=== PATIENT | female | born 1935 | race Caucasian/White ===

== ENCOUNTER → 2016-06-05 | Outpatient (CLI) | payer MEDICARE, OTHER ==
[~2016-06-05] MED LIST: /PANT40TA; /PANT40TA OR; AFRI0.65; AMO500 PO; ASPI325T; ASPI81TA83 OR; ATARAX25 PO; BABY81CH; CALCCHW12; CIPR-250 PO; CLAR500T; COZA50TA18 OR; DEPA250T32 PO; DIOV160T5; DIOV160T5 OR; DONETAB5 PO; FERR325T OR; FLUO20CA8 PO; GLUC500T; GLUC500T PO; GLUCCOSEAC TOPICAL; GLUCOP1000 PO; GLUCOSE TEST; HUMULIN; HUMULINN SC; INSULANT SC; INSULINSYR SUBQ; ISOS20TA3; ISOS20TA3 OR; LANCMIS; LEVOXYL25 MCG; LEVOXYL25 MCG OR; LIPI10TA OR; LOPR50TA OR; LOPR50TA PO; LOSA50TA20 PO; MAGN500T2; MAGN500T2 OR; METO25TA2; NIZORALSHA TOPICAL; PLAV75TA2; PLAV75TA2 OR; PREMAR1.25 PO; PROZ20CA OR; SIMV20TA2 OR; SYNTHROID PO; TESS100C; TYLE167L PO; VICO5TAB; VICO5TAB16 PO; VITA500T3 PO; VITACAP31 PO; ZOCO20TA PO; ZOCOR10 PO; ZOLOFT50 PO; ZONI25CA2 PO; coumadin
[2016-06-05 13:55] LABS: CALCIUM LEVEL 9.6 MG/DL (8.8-10.2); CREATININE FOR GFR 1.45 MG/DL (0.55-1.02); GLOMERULAR FILTRATION RATE 36.9 (>32); POTASSIUM SERUM 4.4 MEQ/L (3.5-5.1)
== END ==
LOC: M SMT 08:47
PROVIDERS: ATTEND Physician Assistant
DX: E11.9 Type 2 diabetes mellitus without complications (principal)

== ENCOUNTER → 2016-08-29 | Outpatient (CLI) | payer MEDICARE ==
[2016-08-29 14:07] LABS: BASO # 0.1 K/mm3 (0.0-0.2); BASO % 0.9 % (0.0-1.0); EOS # 0.2 K/mm3 (0.0-0.50); EOS % 3.9 % (0.0-3.0); LARGE UNSTAINED CELL # 0.1 K/mm3 (0.0-0.4); LARGE UNSTAINED CELL % 1.2 % (0.0-4.0); LYMPH # 1.8 K/mm3 (1.5-4.5); LYMPH % 28.6 % (24.0-44.0); MEAN CORPUSCULAR HEMOGLOBIN 30.5 pg (27.0-33.0); MEAN CORPUSCULAR HGB CONC 32.9 g/dl (32.0-36.5); MEAN CORPUSCULAR VOLUME 92.7 fl (80.0-96.0); MONO # 0.3 K/mm3 (0.0-0.8); MONO % 5.5 % (0.0-5.0); NEUTROPHILS # 3.6 K/mm3 (1.8-7.7); NEUTROPHILS % 59.8 % (36.0-66.0); PLATELET COUNT, AUTOMATED 174 k/mm3 (150-450); RED CELL DISTRIBUTION WIDTH 13.3 % (11.5-14.5)
[2016-08-29 14:26] LABS: ALBUMIN 3.5 GM/DL (3.2-5.2); ALBUMIN/GLOBULIN RATIO 1.25 (1.00-1.93); BILIRUBIN,TOTAL 0.6 MG/DL (0.2-1.0); CALCIUM LEVEL 8.9 MG/DL (8.8-10.2); CREATININE FOR GFR 1.71 MG/DL (0.55-1.02); FREE T4 0.9 NG/DL (0.76-1.46); GLOMERULAR FILTRATION RATE 30.5 (>32); POTASSIUM SERUM 4.1 MEQ/L (3.5-5.1); TOTAL PROTEIN 6.3 GM/DL (6.4-8.2)
== END ==
LOC: M SMT 09:31
PROVIDERS: ATTEND Physician Assistant
DX: E11.9 Type 2 diabetes mellitus without complications (principal); N18.3 Chronic kidney disease, stage 3 (moderate)

== ENCOUNTER → 2016-09-27 | Outpatient (CLI) | payer MEDICARE ==
[~2016-09-27] MED LIST changes: +ASPI1TAB PO; +EXEL4.6D TD; +INSULADS INJ; +LEVO137T14 PO; +NAME5TAB13 PO; +PANT40TA2 PO; +VITA250L PO
--- NOTE | 2016-09-27 14:24 | REPMRS ---
Patient History The patient states she has not had a clinical breast exam in over a year. No known family history of cancer. Digital Woman Screen Mammo: September 27, 2016 - Exam #: [id number] Bilateral CC and MLO view(s) were taken. Technologist: Janene Faye, Technologist Prior study comparison: December 02, 2012, digital bilateral screening mammo, performed at [facility]. January 26, 2011, digital bilateral screening mammo, performed at [facility]. FINDINGS: There are scattered fibroglandular densities. There has been no change in the appearance of the mammogram from the prior studies. There is a mild amount of residual fibroglandular tissue which is fairly symmetric. There is no interval development of dominant mass, architectural distortion, or clustered microcalcification suggestive of malignancy. ASSESSMENT: BI-RADS/ACR category 1 mammogram. Negative. Recommendation Routine screening mammogram in 1 year (for women over age 40). This mammogram was interpreted with the aid of an FDA-approved computer-aided dectection system. Electronically Signed By: Gildardo Barron MD 09/27/16 [id number]
== END ==
LOC: M WHC 12:56
PROVIDERS: ATTEND Physician Assistant
DX: Z12.31 Encounter for screening mammogram for malignant neoplasm of breast (principal)

== ENCOUNTER → 2016-12-06 | Outpatient (CLI) | payer MEDICARE ==
[2016-12-06 13:40] LABS: ALBUMIN 3.4 GM/DL (3.2-5.2); ALBUMIN/GLOBULIN RATIO 1.13 (1.00-1.93); BILIRUBIN,TOTAL 0.4 MG/DL (0.2-1.0); CREATININE FOR GFR 1.45 MG/DL (0.55-1.02); FREE T4 1.16 NG/DL (0.76-1.46); GLOMERULAR FILTRATION RATE 36.8 (>32); POTASSIUM SERUM 4.7 MEQ/L (3.5-5.1); TOTAL PROTEIN 6.4 GM/DL (6.4-8.2)
== END ==
LOC: M SMT 08:54
PROVIDERS: ATTEND Physician Assistant
DX: E11.9 Type 2 diabetes mellitus without complications (principal); E03.9 Hypothyroidism, unspecified

== ENCOUNTER → 2017-02-12 | Outpatient (CLI) | payer MEDICARE ==
--- NOTE | 2017-02-12 16:30 | REP ---
Chest x-ray: Two views: History: Pneumonia. Comparison study: 03/21/2017. Findings: The lungs are symmetrically aerated and clear. Pleural angles are sharp. Heart size is normal. There are degenerative changes in the thoracic spine. Periarticular calcifications are noted about the right shoulder. Pulmonary vasculature is not increased. Impression: No infiltrate seen. No active disease. Signed by Jeremiah Robledo MD 02/12/2017 04:36 P
[2017-02-12 19:09] LABS: MEAN CORPUSCULAR HEMOGLOBIN 30.6 pg (27.0-33.0); MEAN CORPUSCULAR HGB CONC 33.5 g/dl (32.0-36.5); MEAN CORPUSCULAR VOLUME 91.3 fl (80.0-96.0); RED CELL DISTRIBUTION WIDTH 13.6 % (11.5-14.5); WHITE BLOOD COUNT 9.3 K/mm3 (4.0-10.0)
[2017-02-12 19:59] LABS: ALBUMIN 3.6 GM/DL (3.2-5.2); ALBUMIN/GLOBULIN RATIO 1.24 (1.00-1.93); BILIRUBIN,TOTAL 2.2 MG/DL (0.2-1.0); CALCIUM LEVEL 9.7 MG/DL (8.8-10.2); CREATININE FOR GFR 1.62 MG/DL (0.55-1.02); FREE T4 1.32 NG/DL (0.76-1.46); GLOMERULAR FILTRATION RATE 32.4 (>32); POTASSIUM SERUM 4.6 MEQ/L (3.5-5.1); TOTAL PROTEIN 6.5 GM/DL (6.4-8.2)
[2017-02-12 20:39] LABS: EOSINOPHILS 2 % (0-5)
== END ==
LOC: M SMT 15:18
PROVIDERS: ATTEND Physician Assistant
DX: J15.8 Pneumonia due to other specified bacteria (principal); E03.9 Hypothyroidism, unspecified

== ENCOUNTER → 2017-02-20 | Outpatient (CLI) | payer MEDICARE ==
--- NOTE | 2017-02-20 09:21 | REP ---
CT Head without contrast HISTORY: Dizziness COMPARISON: 01/25/2014 An area of decreased attenuation is present in the right basal ganglia. This represents an old lacunar infarction. Areas of decreased attenuation are present in the periventricular white matter. This represents small-vessel ischemic disease. There is no intraparenchymal hemorrhage, acute infarct, mass or midline shift. The ventricular system and cortical sulci as well as subarachnoid space in the posterior fossa are dilated consistent with mild volume loss. There is no extra cerebral collection. There is no fracture. The visualized sinuses are clear. IMPRESSION: 1. Old right basal ganglia lacunar infarction. 2. Small vessel ischemic disease. 3. Mild volume loss. Signed by Sharad Lopez MD 02/20/2017 09:11 A
--- NOTE | 2017-02-20 09:22 | REP ---
Abdominal right upper quadrant ultrasound for elevated liver function tests: There are no comparisons. The the patient has a cholecystectomy. The hepatic biliary ducts are dilated. Common biliary duct is dilated measuring up to 15 mm. This may be secondary to post cholecystectomy state. The hepatic parenchyma is mildly echogenic compatible with hepato steatosis but otherwise homogeneous and unremarkable. The pancreas is obscured by bowel gas. There is no right renal calculus, mass, cyst or hydronephrosis. The right kidney is normal size measuring 10.9 cm craniocaudad length. There is no abdominal right upper quadrant free fluid. Impression: Cholecystectomy. Dilated intrahepatic and extrahepatic biliary ducts, possibly secondary to post cholecystectomy state. Pancreas is obscured by bowel gas. Hepato steatosis. Signed by Gildardo French MD 02/20/2017 09:12 A
== END ==
LOC: M RAD 08:18
PROVIDERS: ATTEND Physician Assistant
DX: K76.0 Fatty (change of) liver, not elsewhere classified (principal); I67.89 Other cerebrovascular disease

== ENCOUNTER → 2017-03-08 | Outpatient (CLI) | payer MEDICARE ==
[2017-03-08 14:09] LABS: BASO % 0.9 % (0.0-1.0); EOS # 0.3 10^3/uL (0.0-0.50); EOS % 5.8 % (0.0-3.0); IMMATURE GRANULOCYTE % 0.2 % (0-0); LYMPH # 1.7 10^3/uL (1.5-4.5); LYMPH % 36.1 % (24.0-44.0); MEAN CORPUSCULAR HEMOGLOBIN 30.2 pg (27.0-33.0); MEAN CORPUSCULAR HGB CONC 33.1 g/dl (32.0-36.5); MEAN CORPUSCULAR VOLUME 91.3 fl (80.0-96.0); MONO # 0.3 10^3/uL (0.0-0.8); MONO % 7.1 % (0.0-5.0); NEUTROPHILS # 2.3 10^3/uL (1.8-7.7); NEUTROPHILS % 49.9 % (36.0-66.0); PLATELET COUNT, AUTOMATED 155 10^3/uL (150-450); WHITE BLOOD COUNT 4.7 10^3/uL (4.0-10.0)
[2017-03-08 15:02] LABS: ALBUMIN 3.6 GM/DL (3.2-5.2); ALBUMIN/GLOBULIN RATIO 1.24 (1.00-1.93); BILIRUBIN,TOTAL 0.8 MG/DL (0.2-1.0); CALCIUM LEVEL 9.1 MG/DL (8.8-10.2); CREATININE FOR GFR 1.31 MG/DL (0.55-1.02); GLOMERULAR FILTRATION RATE 41.4 (>32); MAGNESIUM LEVEL 1.9 MG/DL (1.8-2.4); POTASSIUM SERUM 4.2 MEQ/L (3.5-5.1); TOTAL PROTEIN 6.5 GM/DL (6.4-8.2)
== END ==
LOC: M SMT 08:44
PROVIDERS: ATTEND Family Medicine
DX: E11.21 Type 2 diabetes mellitus with diabetic nephropathy (principal); E78.00 Pure hypercholesterolemia, unspecified; E03.9 Hypothyroidism, unspecified; N18.3 Chronic kidney disease, stage 3 (moderate)

== ENCOUNTER 2017-05-31 17:27 | Emergency (ER) | payer MEDICARE | END 2017-05-31 19:15 | disposition home or self-care (01) | LOC: M ED 17:27 | DX: J02.9 Acute pharyngitis, unspecified (principal); J32.9 Chronic sinusitis, unspecified; K13.70 Unspecified lesions of oral mucosa; G30.9 Alzheimer's disease, unspecified; Z79.899 Other long term (current) drug therapy; Z79.82 Long term (current) use of aspirin; Z88.8 Allergy status to other drugs, medicaments and biological substances | CPT/HCPCS: 99283 ==

== ENCOUNTER → 2017-06-13 | Outpatient (CLI) | payer MEDICARE ==
[2017-06-13 14:01] LABS: ANION GAP 9 MEQ/L (8-16); BLOOD UREA NITROGEN 18 MG/DL (7-18); CALCIUM LEVEL 9.4 MG/DL (8.8-10.2); CARBON DIOXIDE LEVEL 27 MEQ/L (21-32); CHLORIDE LEVEL 106 MEQ/L (98-107); CREATININE FOR GFR 1.27 MG/DL (0.55-1.02); GLOMERULAR FILTRATION RATE 42.9 (>32); GLUCOSE, FASTING 160 MG/DL (83-110); POTASSIUM SERUM 4.6 MEQ/L (3.5-5.1); SODIUM LEVEL 142 MEQ/L (136-145)
[2017-06-13 14:22] LABS: ESTIMATED AVERAGE GLUCOSE 148 MG/DL (60-110); HEMOGLOBIN A1c 6.8 %
== END ==
LOC: M SMT 09:50
DX: Z00.00 Encounter for general adult medical examination without abnormal findings (principal); E11.21 Type 2 diabetes mellitus with diabetic nephropathy
CPT/HCPCS: 83036

== ENCOUNTER → 2017-09-12 | Outpatient (CLI) | payer MEDICARE ==
[2017-09-12 13:50] LABS: BASO # 0.1 10^3/uL (0.0-0.2); BASO % 0.9 % (0.0-1.0); EOS # 0.3 10^3/uL (0.0-0.50); EOS % 4.7 % (0.0-3.0); HEMATOCRIT 39.8 % (36.0-47.0); HEMOGLOBIN 13.2 g/dl (12.0-15.5); IMMATURE GRANULOCYTE % 0.2 % (0-3.0); LYMPH # 1.5 10^3/uL (1.5-4.5); LYMPH % 25.3 % (24.0-44.0); MEAN CORPUSCULAR HEMOGLOBIN 30.2 pg (27.0-33.0); MEAN CORPUSCULAR HGB CONC 33.2 g/dl (32.0-36.5); MEAN CORPUSCULAR VOLUME 91.1 fl (80.0-96.0); MONO # 0.4 10^3/uL (0.0-0.8); MONO % 6.6 % (0.0-5.0); NEUTROPHILS # 3.6 10^3/uL (1.8-7.7); NEUTROPHILS % 62.3 % (36.0-66.0); PLATELET COUNT, AUTOMATED 176 10^3/uL (150-450); RED BLOOD COUNT 4.37 10^6/uL (4.00-5.40); RED CELL DISTRIBUTION WIDTH 13.3 % (11.5-14.5); WHITE BLOOD COUNT 5.7 10^3/uL (4.0-10.0)
[2017-09-12 14:18] LABS: ALBUMIN 3.5 GM/DL (3.2-5.2); ALBUMIN/GLOBULIN RATIO 1.21 (1.00-1.93); ALKALINE PHOSPHATASE 115 U/L (45-117); ALT/SGPT 26 U/L (12-78); ANION GAP 7 MEQ/L (8-16); AST/SGOT 31 U/L (7-37); BILIRUBIN,TOTAL 0.6 MG/DL (0.2-1.0); BLOOD UREA NITROGEN 16 MG/DL (7-18); CALCIUM LEVEL 9.1 MG/DL (8.8-10.2); CARBON DIOXIDE LEVEL 25 MEQ/L (21-32); CHLORIDE LEVEL 112 MEQ/L (98-107); CREATININE FOR GFR 1.25 MG/DL (0.55-1.30); GLOMERULAR FILTRATION RATE 43.7 (>32); GLUCOSE, FASTING 160 MG/DL (70-100); POTASSIUM SERUM 4.3 MEQ/L (3.5-5.1); SODIUM LEVEL 144 MEQ/L (136-145); TOTAL PROTEIN 6.4 GM/DL (6.4-8.2)
[2017-09-12 15:23] LABS: ESTIMATED AVERAGE GLUCOSE 126 MG/DL (60-110)
== END ==
LOC: M SMT 09:23
DX: E11.21 Type 2 diabetes mellitus with diabetic nephropathy (principal); R10.32 Left lower quadrant pain
CPT/HCPCS: 80053

== ENCOUNTER 2017-09-16 13:36 | Emergency (ER) | payer MEDICARE ==
[2017-09-16 15:01] LABS: BASO # 0.1 10^3/uL (0.0-0.2); BASO % 0.7 % (0.0-1.0); EOS # 0.2 10^3/uL (0.0-0.50); EOS % 2.8 % (0.0-3.0); HEMATOCRIT 39.3 % (36.0-47.0); HEMOGLOBIN 13.4 g/dl (12.0-15.5); IMMATURE GRANULOCYTE % 0.3 % (0-3.0); LYMPH # 1.3 10^3/uL (1.5-4.5); LYMPH % 18.2 % (24.0-44.0); MEAN CORPUSCULAR HEMOGLOBIN 30.7 pg (27.0-33.0); MEAN CORPUSCULAR HGB CONC 34.1 g/dl (32.0-36.5); MEAN CORPUSCULAR VOLUME 90.1 fl (80.0-96.0); MONO # 0.4 10^3/uL (0.0-0.8); MONO % 6.3 % (0.0-5.0); NEUTROPHILS # 4.9 10^3/uL (1.8-7.7); NEUTROPHILS % 71.7 % (36.0-66.0); PLATELET COUNT, AUTOMATED 167 10^3/uL (150-450); RED BLOOD COUNT 4.36 10^6/uL (4.00-5.40); RED CELL DISTRIBUTION WIDTH 12.9 % (11.5-14.5); WHITE BLOOD COUNT 6.9 10^3/uL (4.0-10.0)
[2017-09-16 15:20] LABS: INR 1.04; PROTHROMBIN TIME 13.7 SECONDS (12.4-14.5)
[2017-09-16 15:27] LABS: ANION GAP 9 MEQ/L (8-16); BLOOD UREA NITROGEN 17 MG/DL (7-18); CALCIUM LEVEL 9.4 MG/DL (8.8-10.2); CARBON DIOXIDE LEVEL 27 MEQ/L (21-32); CHLORIDE LEVEL 108 MEQ/L (98-107); CPK CREATINE PHOSPHOKINASE 51 U/L (26-192); CREATININE FOR GFR 1.41 MG/DL (0.55-1.30); FREE T4 1.95 NG/DL (0.76-1.46); GLUCOSE, FASTING 113 MG/DL (70-100); MAGNESIUM LEVEL 2.2 MG/DL (1.8-2.4); POTASSIUM SERUM 4.1 MEQ/L (3.5-5.1); SODIUM LEVEL 144 MEQ/L (136-145); TROPONIN I < 0.02 NG/ML (< 0.10)
[2017-09-16 15:32] LABS: CK-MB VALUE MASS < 1.0 NG/ML (<3.6); MB/CK RELATIVE INDEX 1.96 (< OR =4); THYROID STIMULATING HORMONE 0.015 uIU/ML (0.358-3.740)
== END 2017-09-16 16:49 | disposition home or self-care (01) ==
LOC: M ED 13:36
DX: S30.0XXA Contusion of lower back and pelvis, initial encounter (principal); W19.XXXA Unspecified fall, initial encounter; Y92.099 Unspecified place in other non-institutional residence as the place of occurrence of the external cause; Y93.9 Activity, unspecified; Y99.9 Unspecified external cause status; R00.1 Bradycardia, unspecified; I44.4 Left anterior fascicular block; I10 Essential (primary) hypertension; E66.9 Obesity, unspecified; Z79.82 Long term (current) use of aspirin; Z79.899 Other long term (current) drug therapy; Z88.8 Allergy status to other drugs, medicaments and biological substances
CPT/HCPCS: 71045

== ENCOUNTER 2017-09-25 09:40 | Emergency (ER) | payer MEDICARE ==
[2017-09-25] MEDS: ACETAMINOPHEN TAB 650MG DOSE (2X325MG) PO (10:20)
[2017-09-25 11:51] LABS: BASO # 0.1 10^3/uL (0.0-0.2); BASO % 0.7 % (0.0-1.0); EOS # 0.2 10^3/uL (0.0-0.50); EOS % 2.1 % (0.0-3.0); HEMATOCRIT 44.3 % (36.0-47.0); HEMOGLOBIN 15.1 g/dl (12.0-15.5); IMMATURE GRANULOCYTE % 0.4 % (0-3.0); LYMPH % 21.9 % (24.0-44.0); MEAN CORPUSCULAR HEMOGLOBIN 30.5 pg (27.0-33.0); MEAN CORPUSCULAR HGB CONC 34.1 g/dl (32.0-36.5); MEAN CORPUSCULAR VOLUME 89.5 fl (80.0-96.0); MONO # 0.6 10^3/uL (0.0-0.8); MONO % 6.8 % (0.0-5.0); NEUTROPHILS # 6.1 10^3/uL (1.8-7.7); NEUTROPHILS % 68.1 % (36.0-66.0); PLATELET COUNT, AUTOMATED 236 10^3/uL (150-450); RED BLOOD COUNT 4.95 10^6/uL (4.00-5.40); RED CELL DISTRIBUTION WIDTH 13.1 % (11.5-14.5)
[2017-09-25] MEDS: NS 500 ML IV (11:56)
[2017-09-25 12:01] LABS: ALBUMIN 3.6 GM/DL (3.2-5.2); ALBUMIN/GLOBULIN RATIO 1.16 (1.00-1.93); ALKALINE PHOSPHATASE 150 U/L (45-117); ALT/SGPT 21 U/L (12-78); ANION GAP 11 MEQ/L (8-16); AST/SGOT 29 U/L (7-37); BILIRUBIN,DIRECT 0.3 MG/DL (0.0-0.2); BLOOD UREA NITROGEN 24 MG/DL (7-18); CALCIUM LEVEL 9.2 MG/DL (8.8-10.2); CARBON DIOXIDE LEVEL 25 MEQ/L (21-32); CHLORIDE LEVEL 105 MEQ/L (98-107); CREATININE FOR GFR 1.46 MG/DL (0.55-1.30); GLOMERULAR FILTRATION RATE 36.5 (>32); GLUCOSE, FASTING 153 MG/DL (70-100); LIPASE 164 U/L (73-393); POTASSIUM SERUM 3.9 MEQ/L (3.5-5.1); SODIUM LEVEL 141 MEQ/L (136-145); TOTAL PROTEIN 6.7 GM/DL (6.4-8.2)
[2017-09-25 18:03] LABS: KETONE, URINE AUTO RFX 1+ mg/dL (NEGATIVE); MUCUS, URINE RFX SMALL (NEGATIVE); NITRITE, URINE AUTO RFX NEGATIVE (NEGATIVE); RBC, URINE AUTO RFX 2 /HPF (0-3); SPECIFIC GRAVITY UR AUTO RFX 1.028 (1.002-1.035); SQUAM EPITHELIAL CELL UR AURFX 7 /HPF (0-6); WBC, URINE AUTO RFX 5 /HPF (0-3)
[2017-09-25 18:09] LABS: LEUKOCYTE ESTERASE UR AUTO RFX TRACE (NEGATIVE)
== END 2017-09-25 17:40 | disposition home or self-care (01) ==
LOC: M ED 09:40
DX: S70.02XA Contusion of left hip, initial encounter (principal); R29.6 Repeated falls; Z88.8 Allergy status to other drugs, medicaments and biological substances; Z79.899 Other long term (current) drug therapy; Z79.82 Long term (current) use of aspirin
CPT/HCPCS: 73700

== ENCOUNTER 2017-09-26 10:07 | Emergency (ER) | payer MEDICARE ==
[2017-09-26] MEDS: MORPHINE 4 MG/ML 1ML VIAL/SYRINGE (J2270) IV ×4 (12:30→21:07)
[2017-09-26] MEDS: ONDANSETRON 4MG/2ML VIAL (J2405) IV ×4 (12:30→14:21)
[2017-09-26 12:40] LABS: BASO # 0.1 10^3/uL (0.0-0.2); BASO % 0.5 % (0.0-1.0); EOS # 0.1 10^3/uL (0.0-0.50); HEMATOCRIT 42.2 % (36.0-47.0); HEMOGLOBIN 14.8 g/dl (12.0-15.5); IMMATURE GRANULOCYTE % 0.2 % (0-3.0); LYMPH # 1.6 10^3/uL (1.5-4.5); LYMPH % 17.8 % (24.0-44.0); MEAN CORPUSCULAR HEMOGLOBIN 30.6 pg (27.0-33.0); MEAN CORPUSCULAR HGB CONC 35.1 g/dl (32.0-36.5); MEAN CORPUSCULAR VOLUME 87.4 fl (80.0-96.0); MONO # 0.4 10^3/uL (0.0-0.8); MONO % 3.8 % (0.0-5.0); NEUTROPHILS % 76.7 % (36.0-66.0); PLATELET COUNT, AUTOMATED 244 10^3/uL (150-450); RED BLOOD COUNT 4.83 10^6/uL (4.00-5.40); RED CELL DISTRIBUTION WIDTH 13.1 % (11.5-14.5); WHITE BLOOD COUNT 9.1 10^3/uL (4.0-10.0)
[2017-09-26 13:08] LABS: ALBUMIN 3.5 GM/DL (3.2-5.2); ALBUMIN/GLOBULIN RATIO 1.17 (1.00-1.93); ALKALINE PHOSPHATASE 183 U/L (45-117); ALT/SGPT 25 U/L (12-78); ANION GAP 6 MEQ/L (8-16); AST/SGOT 43 U/L (7-37); BILIRUBIN,DIRECT 0.7 MG/DL (0.0-0.2); BILIRUBIN,TOTAL 1.4 MG/DL (0.2-1.0); BLOOD UREA NITROGEN 22 MG/DL (7-18); CALCIUM LEVEL 9.7 MG/DL (8.8-10.2); CARBON DIOXIDE LEVEL 28 MEQ/L (21-32); CHLORIDE LEVEL 107 MEQ/L (98-107); CPK CREATINE PHOSPHOKINASE 44 U/L (26-192); CREATININE FOR GFR 1.42 MG/DL (0.55-1.30); GLOMERULAR FILTRATION RATE 37.7 (>32); GLUCOSE, FASTING 123 MG/DL (70-100); SODIUM LEVEL 141 MEQ/L (136-145); TOTAL PROTEIN 6.5 GM/DL (6.4-8.2); TROPONIN I < 0.02 NG/ML (< 0.10)
[2017-09-26 13:13] LABS: CK-MB VALUE MASS < 1.0 NG/ML (<3.6); MB/CK RELATIVE INDEX 2.27 (< OR =4); THYROID STIMULATING HORMONE 0.041 uIU/ML (0.358-3.740)
[2017-09-26 13:48] LABS: LIPASE 13401 U/L (73-393)
[2017-09-26] MEDS: GASTROGRAFIN SOLUTION 30ML PO ×4 (13:50→14:16)
[2017-09-26] MEDS: NS 1,000 ML IV ×2 (18:01)
== END 2017-09-26 21:30 | disposition short-term general hospital (02) ==
LOC: M ED 10:07
DX: K85.10 Biliary acute pancreatitis without necrosis or infection (principal); N18.3 Chronic kidney disease, stage 3 (moderate); I25.10 Atherosclerotic heart disease of native coronary artery without angina pectoris; E11.9 Type 2 diabetes mellitus without complications; I12.9 Hypertensive chronic kidney disease with stage 1 through stage 4 chronic kidney disease, or unspecified chronic kidney disease; E66.9 Obesity, unspecified; E07.9 Disorder of thyroid, unspecified; Z79.899 Other long term (current) drug therapy; Z79.82 Long term (current) use of aspirin; Z79.890 Hormone replacement therapy; Z88.8 Allergy status to other drugs, medicaments and biological substances; Z95.5 Presence of coronary angioplasty implant and graft; Z98.890 Other specified postprocedural states
CPT/HCPCS: J2270

== ENCOUNTER → 2017-10-09 | Outpatient (CLI) | payer MEDICARE ==
[2017-10-09 18:39] LABS: ALBUMIN 3.4 GM/DL (3.2-5.2); ALBUMIN/GLOBULIN RATIO 1.13 (1.00-1.93); ALKALINE PHOSPHATASE 184 U/L (45-117); ALT/SGPT 29 U/L (12-78); AMYLASE 173 U/L (25-115); ANION GAP 9 MEQ/L (8-16); AST/SGOT 31 U/L (7-37); BILIRUBIN,TOTAL 0.8 MG/DL (0.2-1.0); BLOOD UREA NITROGEN 12 MG/DL (7-18); CALCIUM LEVEL 9.2 MG/DL (8.8-10.2); CARBON DIOXIDE LEVEL 24 MEQ/L (21-32); CHLORIDE LEVEL 109 MEQ/L (98-107); CREATININE FOR GFR 1.34 MG/DL (0.55-1.30); GLOMERULAR FILTRATION RATE 40.3 (>32); GLUCOSE, FASTING 130 MG/DL (70-100); LIPASE 887 U/L (73-393); POTASSIUM SERUM 4.4 MEQ/L (3.5-5.1); SODIUM LEVEL 142 MEQ/L (136-145); TOTAL PROTEIN 6.4 GM/DL (6.4-8.2)
[2017-10-09 19:08] LABS: BASO # 0.1 10^3/uL (0.0-0.2); BASO % 0.5 % (0.0-1.0); EOS # 0.2 10^3/uL (0.0-0.50); EOS % 1.7 % (0.0-3.0); HEMATOCRIT 36.1 % (36.0-47.0); HEMOGLOBIN 11.9 g/dl (12.0-15.5); IMMATURE GRANULOCYTE % 0.3 % (0-3.0); LYMPH % 19.8 % (24.0-44.0); MEAN CORPUSCULAR HEMOGLOBIN 30.9 pg (27.0-33.0); MEAN CORPUSCULAR VOLUME 93.8 fl (80.0-96.0); MONO # 0.5 10^3/uL (0.0-0.8); MONO % 5.3 % (0.0-5.0); NEUTROPHILS # 7.2 10^3/uL (1.8-7.7); NEUTROPHILS % 72.4 % (36.0-66.0); PLATELET COUNT, AUTOMATED 318 10^3/uL (150-450); RED BLOOD COUNT 3.85 10^6/uL (4.00-5.40); RED CELL DISTRIBUTION WIDTH 14.6 % (11.5-14.5)
== END ==
LOC: M SMT 10:55
DX: K85.10 Biliary acute pancreatitis without necrosis or infection (principal)
CPT/HCPCS: 82150

== ENCOUNTER → 2017-10-16 | Outpatient (CLI) | payer MEDICARE | LOC: M WHC 14:17 | DX: Z12.31 Encounter for screening mammogram for malignant neoplasm of breast (principal) | CPT/HCPCS: 77067 ==

== ENCOUNTER → 2017-10-17 | Outpatient (CLI) | payer MEDICARE ==
[2017-10-17 18:27] LABS: LIPASE 709 U/L (73-393)
== END ==
LOC: M SMT 14:16
DX: K85.10 Biliary acute pancreatitis without necrosis or infection (principal)
CPT/HCPCS: 83690

== ENCOUNTER → 2017-12-17 | Outpatient (CLI) | payer MEDICARE ==
[2017-12-17 13:55] LABS: ESTIMATED AVERAGE GLUCOSE 117 MG/DL (60-110); HEMOGLOBIN A1c 5.7 %
[2017-12-17 13:59] LABS: ANION GAP 10 MEQ/L (8-16); BLOOD UREA NITROGEN 16 MG/DL (7-18); CALCIUM LEVEL 9.4 MG/DL (8.8-10.2); CARBON DIOXIDE LEVEL 26 MEQ/L (21-32); CHLORIDE LEVEL 109 MEQ/L (98-107); CREATININE FOR GFR 1.21 MG/DL (0.55-1.30); FREE T4 1.65 NG/DL (0.76-1.46); GLOMERULAR FILTRATION RATE 45.2 (>32); GLUCOSE, FASTING 101 MG/DL (70-100); SODIUM LEVEL 145 MEQ/L (136-145); THYROID STIMULATING HORMONE 0.008 uIU/ML (0.358-3.740)
[2017-12-17 14:25] LABS: MAU/CREAT RATIO 94.4 MCG/MG (0.0-30.0)
== END ==
LOC: M SMT 09:18
DX: E11.21 Type 2 diabetes mellitus with diabetic nephropathy (principal); E03.9 Hypothyroidism, unspecified
CPT/HCPCS: 84443

== ENCOUNTER → 2017-12-26 | Outpatient (CLI) | payer MEDICARE ==
[2017-12-26 13:52] LABS: BASO % 0.8 % (0.0-1.0); EOS # 0.2 10^3/uL (0.0-0.50); EOS % 4.3 % (0.0-3.0); HEMATOCRIT 37.5 % (36.0-47.0); HEMOGLOBIN 12.1 g/dl (12.0-15.5); IMMATURE GRANULOCYTE % 0.2 % (0-3.0); LYMPH # 1.4 10^3/uL (1.5-4.5); LYMPH % 27.6 % (24.0-44.0); MEAN CORPUSCULAR HGB CONC 32.3 g/dl (32.0-36.5); MEAN CORPUSCULAR VOLUME 92.8 fl (80.0-96.0); MONO # 0.4 10^3/uL (0.0-0.8); MONO % 7.9 % (0.0-5.0); NEUTROPHILS % 59.2 % (36.0-66.0); PLATELET COUNT, AUTOMATED 187 10^3/uL (150-450); RED BLOOD COUNT 4.04 10^6/uL (4.00-5.40); RED CELL DISTRIBUTION WIDTH 13.3 % (11.5-14.5); WHITE BLOOD COUNT 5.1 10^3/uL (4.0-10.0)
[2017-12-26 14:02] LABS: ALBUMIN 3.1 GM/DL (3.2-5.2); ALBUMIN/GLOBULIN RATIO 1.07 (1.00-1.93); ALKALINE PHOSPHATASE 134 U/L (45-117); ALT/SGPT 26 U/L (12-78); ANION GAP 7 MEQ/L (8-16); AST/SGOT 33 U/L (7-37); BILIRUBIN,TOTAL 0.4 MG/DL (0.2-1.0); BLOOD UREA NITROGEN 18 MG/DL (7-18); CALCIUM LEVEL 8.9 MG/DL (8.8-10.2); CARBON DIOXIDE LEVEL 29 MEQ/L (21-32); CHLORIDE LEVEL 109 MEQ/L (98-107); CREATININE FOR GFR 1.26 MG/DL (0.55-1.30); GLOMERULAR FILTRATION RATE 43.2 (>32); GLUCOSE, FASTING 120 MG/DL (70-100); POTASSIUM SERUM 4.3 MEQ/L (3.5-5.1); SODIUM LEVEL 145 MEQ/L (136-145)
== END ==
LOC: M SMT 08:58
DX: K85.10 Biliary acute pancreatitis without necrosis or infection (principal); K57.10 Diverticulosis of small intestine without perforation or abscess without bleeding; K80.51 Calculus of bile duct without cholangitis or cholecystitis with obstruction
CPT/HCPCS: 80053

== ENCOUNTER 2018-01-04 14:46 | Inpatient (IN) | payer MEDICARE ==
[2018-01-04] MEDS: NS 1,000 ML IV ×2 (16:05→23:45)
[2018-01-04 16:52] LABS: BEDSIDE GLUCOSE 115 MG/DL (83-110)
[2018-01-04 16:53] LABS: BASO % 0.4 % (0.0-1.0); EOS # 0.1 10^3/uL (0.0-0.50); EOS % 0.9 % (0.0-3.0); HEMATOCRIT 35.1 % (36.0-47.0); HEMOGLOBIN 11.7 g/dl (12.0-15.5); IMMATURE GRANULOCYTE % 0.7 % (0-3.0); LYMPH # 0.7 10^3/uL (1.5-4.5); LYMPH % 11.4 % (24.0-44.0); MEAN CORPUSCULAR HEMOGLOBIN 30.9 pg (27.0-33.0); MEAN CORPUSCULAR HGB CONC 33.3 g/dl (32.0-36.5); MEAN CORPUSCULAR VOLUME 92.6 fl (80.0-96.0); MONO # 0.4 10^3/uL (0.0-0.8); NEUTROPHILS # 4.6 10^3/uL (1.8-7.7); NEUTROPHILS % 79.6 % (36.0-66.0); PLATELET COUNT, AUTOMATED 121 10^3/uL (150-450); RED BLOOD COUNT 3.79 10^6/uL (4.00-5.40); RED CELL DISTRIBUTION WIDTH 13.2 % (11.5-14.5); WHITE BLOOD COUNT 5.7 10^3/uL (4.0-10.0)
[2018-01-04 17:11] LABS: ALBUMIN 2.7 GM/DL (3.2-5.2); ALBUMIN/GLOBULIN RATIO 0.93 (1.00-1.93); ALKALINE PHOSPHATASE 191 U/L (45-117); ALT/SGPT 66 U/L (12-78); AST/SGOT 69 U/L (7-37); BILIRUBIN,DIRECT 1.2 MG/DL (0.0-0.2); LIPASE 93 U/L (73-393); TOTAL PROTEIN 5.6 GM/DL (6.4-8.2)
[2018-01-04 17:14] LABS: ANION GAP 8 MEQ/L (8-16); BLOOD UREA NITROGEN 16 MG/DL (7-18); CALCIUM LEVEL 8.5 MG/DL (8.8-10.2); CARBON DIOXIDE LEVEL 26 MEQ/L (21-32); CHLORIDE LEVEL 107 MEQ/L (98-107); CPK CREATINE PHOSPHOKINASE 30 U/L (26-192); CREATININE FOR GFR 1.19 MG/DL (0.55-1.30); FREE T4 1.63 NG/DL (0.76-1.46); GLOMERULAR FILTRATION RATE 46.1 (>32); GLUCOSE, FASTING 125 MG/DL (70-100); MAGNESIUM LEVEL 2.1 MG/DL (1.8-2.4); POTASSIUM SERUM 3.9 MEQ/L (3.5-5.1); SODIUM LEVEL 141 MEQ/L (136-145); TROPONIN I < 0.02 NG/ML (< 0.10)
[2018-01-04 17:19] LABS: CK-MB VALUE MASS < 1.0 NG/ML (<3.6); MB/CK RELATIVE INDEX 3.33 (< OR =4); THYROID STIMULATING HORMONE 0.021 uIU/ML (0.358-3.740)
[2018-01-04] MEDS ORDERED: GASTROGRAFIN SOLUTION 30ML (Q9963) As Ordered (17:44)
[2018-01-04] MEDS: GASTROGRAFIN SOLUTION 30ML PO ×2 (17:55→18:20)
[2018-01-04] MEDS ORDERED: ISOVUE-370 76% 100ML VIAL (Q9967) As Ordered (19:20)
[2018-01-04] MEDS: HumaLOG INSULIN (NovoLOG) PER UNIT SC (21:00)
[2018-01-04] MEDS ORDERED: GLUCAGON FOR INJ 1 MG VIAL (J1610) SC (21:30)
[2018-01-04] MEDS ORDERED: GLUCOSE 4 GM CHEW TABLET PO (21:30)
[2018-01-04] MEDS ORDERED: DEXTROSE 50% 50 ML SYRINGE IV (21:30)
[2018-01-04] MEDS ORDERED: ONDANSETRON 4 MG TAB (S0181) PO (21:30)
[2018-01-04] MEDS ORDERED: ONDANSETRON 4 MG ORAL DISINTEGRATING TAB (Q0162 PER 1MG) PO (22:30)
[2018-01-05 00:58] LABS: BEDSIDE GLUCOSE 114 MG/DL (83-110)
[2018-01-05] MEDS: hydrOXYzine 25 MG TAB PO ×5 (01:08→23:12)
[2018-01-05] MEDS: PANTOPRAZOLE 40MG INJ (PROTONIX) (C9113) IV (01:08)
[2018-01-05] MEDS: PIPERACILLIN/TAZOBACTAM SOD 3.375 GM in D5W MINI-BAG PLUS 50 ML IV ×5 (01:09→22:04)
[2018-01-05] MEDS: HEPARIN SOD (PORCINE) 5000 UNITS/ML VIAL SC ×3 (05:35→22:04)
[2018-01-05] MEDS: LEVOTHYROXINE 150MCG TABLET (0.15MG) PO (05:35)
[2018-01-05 06:02] LABS: HEMOGLOBIN 10.8 g/dl (12.0-15.5); MEAN CORPUSCULAR HEMOGLOBIN 30.3 pg (27.0-33.0); MEAN CORPUSCULAR HGB CONC 33.8 g/dl (32.0-36.5); MEAN CORPUSCULAR VOLUME 89.6 fl (80.0-96.0); PLATELET COUNT, AUTOMATED 113 10^3/uL (150-450); RED BLOOD COUNT 3.57 10^6/uL (4.00-5.40); RED CELL DISTRIBUTION WIDTH 13.2 % (11.5-14.5); WHITE BLOOD COUNT 4.2 10^3/uL (4.0-10.0)
[2018-01-05 06:19] LABS: ALBUMIN 2.4 GM/DL (3.2-5.2); ALKALINE PHOSPHATASE 179 U/L (45-117); ALT/SGPT 54 U/L (12-78); ANION GAP 9 MEQ/L (8-16); AST/SGOT 52 U/L (7-37); BILIRUBIN,TOTAL 1.4 MG/DL (0.2-1.0); BLOOD UREA NITROGEN 12 MG/DL (7-18); CALCIUM LEVEL 8.6 MG/DL (8.8-10.2); CARBON DIOXIDE LEVEL 25 MEQ/L (21-32); CHLORIDE LEVEL 108 MEQ/L (98-107); CREATININE FOR GFR 1.04 MG/DL (0.55-1.30); GLOMERULAR FILTRATION RATE 53.9 (>32); GLUCOSE, FASTING 123 MG/DL (70-100); POTASSIUM SERUM 3.7 MEQ/L (3.5-5.1); SODIUM LEVEL 142 MEQ/L (136-145); TOTAL PROTEIN 5.4 GM/DL (6.4-8.2)
[2018-01-05] MEDS: HumaLOG INSULIN (NovoLOG) PER UNIT SC ×4 (07:35→21:18)
[2018-01-05] MEDS: NS 1,000 ML IV ×3 (07:36→22:05)
[2018-01-05] MEDS ORDERED: OMEPRAZOLE 20 MG CAP PO (09:00)
[2018-01-05 09:12] LABS: INR 1.04; PARTIAL THROMBOPLASTIN TIME 30.9 SECONDS (25.4-37.6); PROTHROMBIN TIME 13.8 SECONDS (12.1-14.4)
[2018-01-05] MEDS: MAGNESIUM GLUCONATE 500 MG TAB PO (09:19)
[2018-01-05] MEDS: SIMVASTATIN 40 MG TAB PO (09:19)
[2018-01-05] MEDS: MEMANTINE 5MG TABLET (NAMENDA) PO (09:19)
[2018-01-05] MEDS: VITAMIN D 1,000 INTERNATIONAL UNITS TABLET PO (09:19)
[2018-01-05] MEDS: FLUoxetine 20 MG CAP PO (09:20)
[2018-01-05] MEDS: MULTIVITAMINS/MINERALS THERAP 1 TAB PO (09:20)
[2018-01-05] MEDS: ASPIRIN 81 MG ENTERIC TAB PO (09:20)
[2018-01-05] MEDS: ACETAMINOPHEN TAB 650MG DOSE (2X325MG) PO (16:38)
[2018-01-05 17:01] LABS: BEDSIDE GLUCOSE 90 MG/DL (83-110)
[2018-01-05] MEDS: PANTOPRAZOLE SODIUM 40 MG in D5W 50 ML IV ×2 (19:37→23:03)
[2018-01-05 19:50] LABS: BEDSIDE GLUCOSE 93 MG/DL (83-110)
[2018-01-05 20:40] LABS: LACTIC ACID SEPSIS PROTOCOL 1.1 MMOL/L (0.4-2.0)
[2018-01-05 20:52] LABS: BEDSIDE GLUCOSE 83 MG/DL (83-110)
[2018-01-06] MEDS ORDERED: cloNIDine 0.1 MG TAB PO (03:30)
[2018-01-06] MEDS: cloNIDine 0.1 MG TAB PO ×2 (03:31→05:11)
[2018-01-06] MEDS: PANTOPRAZOLE SODIUM 40 MG in D5W 50 ML IV ×2 (04:37→09:30)
[2018-01-06] MEDS: PIPERACILLIN/TAZOBACTAM SOD 3.375 GM in D5W MINI-BAG PLUS 50 ML IV ×2 (05:11→11:08)
[2018-01-06] MEDS: HEPARIN SOD (PORCINE) 5000 UNITS/ML VIAL SC ×3 (05:11→21:29)
[2018-01-06] MEDS: hydrOXYzine 25 MG TAB PO ×3 (05:11→17:06)
[2018-01-06] MEDS: LEVOTHYROXINE 150MCG TABLET (0.15MG) PO (05:18)
[2018-01-06 06:32] LABS: HEMATOCRIT 36.2 % (36.0-47.0); HEMOGLOBIN 12.1 g/dl (12.0-15.5); MEAN CORPUSCULAR HEMOGLOBIN 30.5 pg (27.0-33.0); MEAN CORPUSCULAR HGB CONC 33.4 g/dl (32.0-36.5); MEAN CORPUSCULAR VOLUME 91.2 fl (80.0-96.0); PLATELET COUNT, AUTOMATED 130 10^3/uL (150-450); RED BLOOD COUNT 3.97 10^6/uL (4.00-5.40); RED CELL DISTRIBUTION WIDTH 13.1 % (11.5-14.5); WHITE BLOOD COUNT 4.3 10^3/uL (4.0-10.0)
[2018-01-06 06:57] LABS: ALBUMIN 2.4 GM/DL (3.2-5.2); ALBUMIN/GLOBULIN RATIO 0.69 (1.00-1.93); ALKALINE PHOSPHATASE 205 U/L (45-117); ALT/SGPT 48 U/L (12-78); ANION GAP 8 MEQ/L (8-16); AST/SGOT 47 U/L (7-37); BILIRUBIN,TOTAL 1.1 MG/DL (0.2-1.0); BLOOD UREA NITROGEN 9 MG/DL (7-18); CALCIUM LEVEL 8.9 MG/DL (8.8-10.2); CARBON DIOXIDE LEVEL 26 MEQ/L (21-32); CHLORIDE LEVEL 109 MEQ/L (98-107); CREATININE FOR GFR 1.16 MG/DL (0.55-1.30); GLOMERULAR FILTRATION RATE 47.5 (>32); GLUCOSE, FASTING 100 MG/DL (70-100); POTASSIUM SERUM 3.8 MEQ/L (3.5-5.1); SODIUM LEVEL 143 MEQ/L (136-145); TOTAL PROTEIN 5.9 GM/DL (6.4-8.2)
[2018-01-06] MEDS: HumaLOG INSULIN (NovoLOG) PER UNIT SC ×4 (07:26→21:28)
[2018-01-06] MEDS: **hydrALAZINE** 10 MG TAB PO ×2 (08:22→21:29)
[2018-01-06] MEDS: MULTIVITAMINS/MINERALS THERAP 1 TAB PO (08:23)
[2018-01-06] MEDS: MAGNESIUM GLUCONATE 500 MG TAB PO (08:23)
[2018-01-06] MEDS: FLUoxetine 20 MG CAP PO (08:23)
[2018-01-06] MEDS: VITAMIN D 1,000 INTERNATIONAL UNITS TABLET PO (08:23)
[2018-01-06] MEDS: ASPIRIN 81 MG ENTERIC TAB PO (08:23)
[2018-01-06] MEDS: SIMVASTATIN 40 MG TAB PO (08:23)
[2018-01-06] MEDS: MEMANTINE 5MG TABLET (NAMENDA) PO (08:24)
[2018-01-06 16:34] LABS: BEDSIDE GLUCOSE 129 MG/DL (83-110)
[2018-01-06] MEDS: PANTOPRAZOLE 40MG TAB (PROTONIX) PO (21:28)
[2018-01-07 00:36] LABS: BEDSIDE GLUCOSE 126 MG/DL (83-110)
[2018-01-07] MEDS: hydrOXYzine 25 MG TAB PO ×4 (00:39→17:46)
[2018-01-07] MEDS: LEVOTHYROXINE 150MCG TABLET (0.15MG) PO (05:36)
[2018-01-07] MEDS: HEPARIN SOD (PORCINE) 5000 UNITS/ML VIAL SC ×3 (05:37→21:23)
[2018-01-07 06:14] LABS: HEMATOCRIT 31.2 % (36.0-47.0); HEMOGLOBIN 10.5 g/dl (12.0-15.5); MEAN CORPUSCULAR HEMOGLOBIN 29.7 pg (27.0-33.0); MEAN CORPUSCULAR HGB CONC 33.7 g/dl (32.0-36.5); MEAN CORPUSCULAR VOLUME 88.4 fl (80.0-96.0); PLATELET COUNT, AUTOMATED 133 10^3/uL (150-450); RED BLOOD COUNT 3.53 10^6/uL (4.00-5.40); RED CELL DISTRIBUTION WIDTH 13.5 % (11.5-14.5); WHITE BLOOD COUNT 4.5 10^3/uL (4.0-10.0)
[2018-01-07 06:35] LABS: ALBUMIN 2.3 GM/DL (3.2-5.2); ALBUMIN/GLOBULIN RATIO 0.77 (1.00-1.93); ALKALINE PHOSPHATASE 200 U/L (45-117); ALT/SGPT 36 U/L (12-78); ANION GAP 8 MEQ/L (8-16); AST/SGOT 32 U/L (7-37); BILIRUBIN,TOTAL 0.7 MG/DL (0.2-1.0); BLOOD UREA NITROGEN 12 MG/DL (7-18); CALCIUM LEVEL 8.5 MG/DL (8.8-10.2); CARBON DIOXIDE LEVEL 26 MEQ/L (21-32); CHLORIDE LEVEL 108 MEQ/L (98-107); CREATININE FOR GFR 1.28 MG/DL (0.55-1.30); GLOMERULAR FILTRATION RATE 42.4 (>32); GLUCOSE, FASTING 125 MG/DL (70-100); POTASSIUM SERUM 3.5 MEQ/L (3.5-5.1); SODIUM LEVEL 142 MEQ/L (136-145); TOTAL PROTEIN 5.3 GM/DL (6.4-8.2)
[2018-01-07] MEDS: HumaLOG INSULIN (NovoLOG) PER UNIT SC ×4 (07:40→21:00)
[2018-01-07] MEDS: VITAMIN D 1,000 INTERNATIONAL UNITS TABLET PO (08:35)
[2018-01-07] MEDS: MULTIVITAMINS/MINERALS THERAP 1 TAB PO (08:35)
[2018-01-07] MEDS: SIMVASTATIN 40 MG TAB PO (08:35)
[2018-01-07] MEDS: MAGNESIUM GLUCONATE 500 MG TAB PO (08:35)
[2018-01-07] MEDS: ASPIRIN 81 MG ENTERIC TAB PO (08:39)
[2018-01-07] MEDS: **hydrALAZINE** 10 MG TAB PO ×3 (08:40→21:23)
[2018-01-07] MEDS: PANTOPRAZOLE 40MG TAB (PROTONIX) PO ×2 (08:40→21:22)
[2018-01-07] MEDS: MEMANTINE 5MG TABLET (NAMENDA) PO (08:40)
[2018-01-07] MEDS: FLUoxetine 20 MG CAP PO (08:41)
[2018-01-07 11:54] LABS: BEDSIDE GLUCOSE 131 MG/DL (83-110)
[2018-01-07] MEDS: ACETAMINOPHEN TAB 650MG DOSE (2X325MG) PO (16:04)
[2018-01-07 20:43] LABS: BEDSIDE GLUCOSE 108 MG/DL (83-110)
[2018-01-08] MEDS: hydrOXYzine 25 MG TAB PO ×2 (00:03→05:32)
[2018-01-08] MEDS: HEPARIN SOD (PORCINE) 5000 UNITS/ML VIAL SC ×3 (05:34→21:23)
[2018-01-08] MEDS: LEVOTHYROXINE 125MCG TABLET (0.125MG) PO (05:40)
[2018-01-08 06:26] LABS: MEAN CORPUSCULAR HEMOGLOBIN 30.6 pg (27.0-33.0); MEAN CORPUSCULAR HGB CONC 33.3 g/dl (32.0-36.5); MEAN CORPUSCULAR VOLUME 91.9 fl (80.0-96.0); PLATELET COUNT, AUTOMATED 140 10^3/uL (150-450); RED BLOOD COUNT 3.59 10^6/uL (4.00-5.40); RED CELL DISTRIBUTION WIDTH 13.5 % (11.5-14.5)
[2018-01-08 06:44] LABS: ALBUMIN 2.4 GM/DL (3.2-5.2); ALBUMIN/GLOBULIN RATIO 0.77 (1.00-1.93); ALKALINE PHOSPHATASE 209 U/L (45-117); ALT/SGPT 32 U/L (12-78); ANION GAP 9 MEQ/L (8-16); AST/SGOT 28 U/L (7-37); BILIRUBIN,TOTAL 0.6 MG/DL (0.2-1.0); BLOOD UREA NITROGEN 11 MG/DL (7-18); CALCIUM LEVEL 8.6 MG/DL (8.8-10.2); CARBON DIOXIDE LEVEL 25 MEQ/L (21-32); CHLORIDE LEVEL 110 MEQ/L (98-107); CREATININE FOR GFR 1.18 MG/DL (0.55-1.30); GLOMERULAR FILTRATION RATE 46.6 (>32); GLUCOSE, FASTING 105 MG/DL (70-100); POTASSIUM SERUM 3.6 MEQ/L (3.5-5.1); SODIUM LEVEL 144 MEQ/L (136-145); TOTAL PROTEIN 5.5 GM/DL (6.4-8.2)
[2018-01-08] MEDS: HumaLOG INSULIN (NovoLOG) PER UNIT SC ×4 (07:30→21:00)
[2018-01-08] MEDS: MULTIVITAMINS/MINERALS THERAP 1 TAB PO (09:00)
[2018-01-08] MEDS: MEMANTINE 5MG TABLET (NAMENDA) PO (09:00)
[2018-01-08] MEDS: ASPIRIN 81 MG ENTERIC TAB PO (09:00)
[2018-01-08] MEDS: PANTOPRAZOLE 40MG TAB (PROTONIX) PO ×2 (09:00→21:23)
[2018-01-08] MEDS: VITAMIN D 1,000 INTERNATIONAL UNITS TABLET PO (09:00)
[2018-01-08] MEDS: MAGNESIUM GLUCONATE 500 MG TAB PO (09:00)
[2018-01-08] MEDS: FLUoxetine 20 MG CAP PO (09:00)
[2018-01-08] MEDS: **hydrALAZINE** 10 MG TAB PO ×2 (09:00→21:33)
[2018-01-08] MEDS: SIMVASTATIN 40 MG TAB PO (09:00)
[2018-01-08] MEDS: NS 1,000 ML IV ×2 (09:30→21:24)
[2018-01-08] MEDS ORDERED: hydrOXYzine 25 MG TAB PO (09:45)
[2018-01-08 11:49] LABS: BEDSIDE GLUCOSE 102 MG/DL (83-110)
[2018-01-08] MEDS ORDERED: CHLORASEPTIC SPRAY MT (14:30)
[2018-01-08 16:31] LABS: BEDSIDE GLUCOSE 96 MG/DL (83-110)
[2018-01-09] MEDS: HEPARIN SOD (PORCINE) 5000 UNITS/ML VIAL SC ×3 (05:45→22:10)
[2018-01-09] MEDS: NS 1,000 ML IV (05:45)
[2018-01-09] MEDS: LEVOTHYROXINE 125MCG TABLET (0.125MG) PO (05:45)
[2018-01-09 05:55] LABS: BEDSIDE GLUCOSE 129 MG/DL (83-110)
[2018-01-09 05:55] LABS: BEDSIDE GLUCOSE 129 MG/DL (83-110)
[2018-01-09 05:55] LABS: BEDSIDE GLUCOSE 117 MG/DL (83-110)
[2018-01-09 05:55] LABS: BEDSIDE GLUCOSE 134 MG/DL (83-110)
[2018-01-09 06:00] LABS: HEMATOCRIT 30.3 % (36.0-47.0); HEMOGLOBIN 10.2 g/dl (12.0-15.5); MEAN CORPUSCULAR HEMOGLOBIN 29.7 pg (27.0-33.0); MEAN CORPUSCULAR HGB CONC 33.7 g/dl (32.0-36.5); MEAN CORPUSCULAR VOLUME 88.3 fl (80.0-96.0); PLATELET COUNT, AUTOMATED 142 10^3/uL (150-450); RED BLOOD COUNT 3.43 10^6/uL (4.00-5.40); RED CELL DISTRIBUTION WIDTH 13.5 % (11.5-14.5); WHITE BLOOD COUNT 4.9 10^3/uL (4.0-10.0)
[2018-01-09 06:23] LABS: ALBUMIN 2.4 GM/DL (3.2-5.2); ALKALINE PHOSPHATASE 197 U/L (45-117); ALT/SGPT 29 U/L (12-78); ANION GAP 8 MEQ/L (8-16); AST/SGOT 28 U/L (7-37); BILIRUBIN,TOTAL 0.6 MG/DL (0.2-1.0); BLOOD UREA NITROGEN 9 MG/DL (7-18); CALCIUM LEVEL 8.4 MG/DL (8.8-10.2); CARBON DIOXIDE LEVEL 23 MEQ/L (21-32); CHLORIDE LEVEL 114 MEQ/L (98-107); CREATININE FOR GFR 1.17 MG/DL (0.55-1.30); GLUCOSE, FASTING 91 MG/DL (70-100); POTASSIUM SERUM 3.9 MEQ/L (3.5-5.1); SODIUM LEVEL 145 MEQ/L (136-145); TOTAL PROTEIN 5.4 GM/DL (6.4-8.2)
[2018-01-09] MEDS: HumaLOG INSULIN (NovoLOG) PER UNIT SC ×4 (07:30→20:40)
[2018-01-09] MEDS: MULTIVITAMINS/MINERALS THERAP 1 TAB PO (08:41)
[2018-01-09] MEDS: ASPIRIN 81 MG ENTERIC TAB PO (08:41)
[2018-01-09] MEDS: VITAMIN D 1,000 INTERNATIONAL UNITS TABLET PO (08:42)
[2018-01-09] MEDS: MEMANTINE 5MG TABLET (NAMENDA) PO (08:42)
[2018-01-09] MEDS: PANTOPRAZOLE 40MG TAB (PROTONIX) PO ×2 (08:42→21:00)
[2018-01-09] MEDS: SIMVASTATIN 40 MG TAB PO (08:42)
[2018-01-09] MEDS: **hydrALAZINE** 10 MG TAB PO (08:46)
[2018-01-09] MEDS: MAGNESIUM GLUCONATE 500 MG TAB PO (09:00)
[2018-01-09] MEDS: ACETAMINOPHEN TAB 650MG DOSE (2X325MG) PO (11:36)
[2018-01-09 12:21] LABS: BEDSIDE GLUCOSE 96 MG/DL (83-110)
[2018-01-09 17:12] LABS: BEDSIDE GLUCOSE 96 MG/DL (83-110)
[2018-01-09 20:36] LABS: BEDSIDE GLUCOSE 107 MG/DL (83-110)
[2018-01-10] MEDS: LEVOTHYROXINE 125MCG TABLET (0.125MG) PO (05:50)
[2018-01-10] MEDS: HEPARIN SOD (PORCINE) 5000 UNITS/ML VIAL SC (05:50)
[2018-01-10 06:25] LABS: HEMATOCRIT 32.2 % (36.0-47.0); HEMOGLOBIN 10.8 g/dl (12.0-15.5); MEAN CORPUSCULAR HEMOGLOBIN 30.4 pg (27.0-33.0); MEAN CORPUSCULAR HGB CONC 33.5 g/dl (32.0-36.5); MEAN CORPUSCULAR VOLUME 90.7 fl (80.0-96.0); PLATELET COUNT, AUTOMATED 158 10^3/uL (150-450); RED BLOOD COUNT 3.55 10^6/uL (4.00-5.40); RED CELL DISTRIBUTION WIDTH 13.7 % (11.5-14.5); WHITE BLOOD COUNT 5.3 10^3/uL (4.0-10.0)
[2018-01-10 06:42] LABS: ALBUMIN 2.7 GM/DL (3.2-5.2); ALBUMIN/GLOBULIN RATIO 0.84 (1.00-1.93); ALKALINE PHOSPHATASE 190 U/L (45-117); ALT/SGPT 27 U/L (12-78); ANION GAP 9 MEQ/L (8-16); AST/SGOT 28 U/L (7-37); BILIRUBIN,TOTAL 0.7 MG/DL (0.2-1.0); BLOOD UREA NITROGEN 8 MG/DL (7-18); CALCIUM LEVEL 8.9 MG/DL (8.8-10.2); CARBON DIOXIDE LEVEL 23 MEQ/L (21-32); CHLORIDE LEVEL 113 MEQ/L (98-107); CREATININE FOR GFR 1.23 MG/DL (0.55-1.30); GLOMERULAR FILTRATION RATE 44.4 (>32); GLUCOSE, FASTING 95 MG/DL (70-100); POTASSIUM SERUM 3.8 MEQ/L (3.5-5.1); SODIUM LEVEL 145 MEQ/L (136-145); TOTAL PROTEIN 5.9 GM/DL (6.4-8.2)
[2018-01-10] MEDS: HumaLOG INSULIN (NovoLOG) PER UNIT SC ×2 (06:50→11:56)
[2018-01-10] MEDS: VITAMIN D 1,000 INTERNATIONAL UNITS TABLET PO (08:43)
[2018-01-10] MEDS: MEMANTINE 5MG TABLET (NAMENDA) PO (08:43)
[2018-01-10] MEDS: MULTIVITAMINS/MINERALS THERAP 1 TAB PO (08:44)
[2018-01-10] MEDS: MAGNESIUM GLUCONATE 500 MG TAB PO (08:44)
[2018-01-10] MEDS: SIMVASTATIN 40 MG TAB PO (08:44)
[2018-01-10] MEDS: ASPIRIN 81 MG ENTERIC TAB PO (08:44)
[2018-01-10] MEDS: PANTOPRAZOLE 40MG TAB (PROTONIX) PO (08:44)
== END 2018-01-10 12:20 | disposition home health service (06) | DRG 446 ==
LOC: M MSPAV 01-05 01:35 → M ED 14:46 → M ED INP 22:21
DX: K80.50 Calculus of bile duct without cholangitis or cholecystitis without obstruction (principal); K29.00 Acute gastritis without bleeding; F03.90 Unspecified dementia, unspecified severity, without behavioral disturbance, psychotic disturbance, mood disturbance, and anxiety; E11.9 Type 2 diabetes mellitus without complications; E03.9 Hypothyroidism, unspecified; F32.9 Major depressive disorder, single episode, unspecified; E78.5 Hyperlipidemia, unspecified; R29.6 Repeated falls; I95.1 Orthostatic hypotension; K74.60 Unspecified cirrhosis of liver; K59.00 Constipation, unspecified; I25.10 Atherosclerotic heart disease of native coronary artery without angina pectoris; M51.34 Other intervertebral disc degeneration, thoracic region; M51.36 Other intervertebral disc degeneration, lumbar region; D69.6 Thrombocytopenia, unspecified; Z95.5 Presence of coronary angioplasty implant and graft; Z90.49 Acquired absence of other specified parts of digestive tract; Z79.82 Long term (current) use of aspirin; Z79.84 Long term (current) use of oral hypoglycemic drugs; Z79.899 Other long term (current) drug therapy

== ENCOUNTER → 2018-02-22 | Outpatient (CLI) | payer MEDICARE ==
[~2018-02-22] MED LIST changes: -/PANT40TA; -/PANT40TA OR; -AFRI0.65; -AMO500 PO; -ASPI1TAB PO; -ASPI325T; -ASPI81TA83 OR; -ATARAX25 PO; -BABY81CH; -CALCCHW12; -CIPR-250 PO; -CLAR500T; -COZA50TA18 OR; -DEPA250T32 PO; -DIOV160T5; -DIOV160T5 OR; -DONETAB5 PO; -EXEL4.6D TD; -FERR325T OR; -FLUO20CA8 PO; +GASTROGRAFIN SOLUTION 30ML (Q9963) As Ordered; -GLUC500T; -GLUC500T PO; -GLUCCOSEAC TOPICAL; -GLUCOP1000 PO; -GLUCOSE TEST; -HUMULIN; -HUMULINN SC; -INSULADS INJ; -INSULANT SC; -INSULINSYR SUBQ; -ISOS20TA3; -ISOS20TA3 OR; +ISOVUE-370 76% 100ML VIAL (Q9967) As Ordered; -LANCMIS; -LEVO137T14 PO; -LEVOXYL25 MCG; -LEVOXYL25 MCG OR; -LIPI10TA OR; -LOPR50TA OR; -LOPR50TA PO; -LOSA50TA20 PO; -MAGN500T2; -MAGN500T2 OR; -METO25TA2; -NAME5TAB13 PO; -NIZORALSHA TOPICAL; -PANT40TA2 PO; -PLAV75TA2; -PLAV75TA2 OR; -PREMAR1.25 PO; -PROZ20CA OR; -SIMV20TA2 OR; -SYNTHROID PO; -TESS100C; -TYLE167L PO; -VICO5TAB; -VICO5TAB16 PO; -VITA250L PO; -VITA500T3 PO; -VITACAP31 PO; -ZOCO20TA PO; -ZOCOR10 PO; -ZOLOFT50 PO; -ZONI25CA2 PO; -coumadin
== END ==
LOC: M RAD 15:39
DX: M25.561 Pain in right knee (principal); R10.32 Left lower quadrant pain; M25.562 Pain in left knee; I71.4 Abdominal aortic aneurysm, without rupture
CPT/HCPCS: Q9963

== ENCOUNTER 2018-03-08 13:38 | Inpatient (IN) | payer MEDICARE ==
[2018-03-08 14:45] LABS: BASO # 0.1 10^3/uL (0.0-0.2); BASO % 0.8 % (0.0-1.0); EOS # 0.3 10^3/uL (0.0-0.50); HEMOGLOBIN 11.8 g/dl (12.0-15.5); IMMATURE GRANULOCYTE % 0.3 % (0-3.0); LYMPH # 1.5 10^3/uL (1.5-4.5); LYMPH % 23.6 % (24.0-44.0); MEAN CORPUSCULAR HEMOGLOBIN 30.3 pg (27.0-33.0); MEAN CORPUSCULAR HGB CONC 31.9 g/dl (32.0-36.5); MEAN CORPUSCULAR VOLUME 94.9 fl (80.0-96.0); MONO # 0.4 10^3/uL (0.0-0.8); MONO % 6.2 % (0.0-5.0); NEUTROPHILS # 4.2 10^3/uL (1.8-7.7); NEUTROPHILS % 65.1 % (36.0-66.0); PLATELET COUNT, AUTOMATED 163 10^3/uL (150-450); RED CELL DISTRIBUTION WIDTH 14.3 % (11.5-14.5); WHITE BLOOD COUNT 6.4 10^3/uL (4.0-10.0)
[2018-03-08 15:13] LABS: ALBUMIN 3.3 GM/DL (3.2-5.2); ALBUMIN/GLOBULIN RATIO 1.22 (1.00-1.93); ALKALINE PHOSPHATASE 126 U/L (45-117); ALT/SGPT 28 U/L (12-78); ANION GAP 7 MEQ/L (8-16); AST/SGOT 40 U/L (7-37); BILIRUBIN,DIRECT 0.1 MG/DL (0.0-0.2); BILIRUBIN,TOTAL 0.3 MG/DL (0.2-1.0); BLOOD UREA NITROGEN 20 MG/DL (7-18); CALCIUM LEVEL 8.9 MG/DL (8.8-10.2); CARBON DIOXIDE LEVEL 28 MEQ/L (21-32); CHLORIDE LEVEL 111 MEQ/L (98-107); CREATININE FOR GFR 1.32 MG/DL (0.55-1.30); GLOMERULAR FILTRATION RATE 40.9 (>32); GLUCOSE, FASTING 191 MG/DL (70-100); POTASSIUM SERUM 4.2 MEQ/L (3.5-5.1); SODIUM LEVEL 146 MEQ/L (136-145); THYROID STIMULATING HORMONE 0.292 uIU/ML (0.358-3.740)
[2018-03-08 16:29] LABS: CPK CREATINE PHOSPHOKINASE 46 U/L (26-192); MB/CK RELATIVE INDEX 2.61 (< OR =4); TROPONIN I < 0.02 NG/ML (< 0.10)
[2018-03-08 16:44] LABS: KETONE, URINE AUTO RFX NEGATIVE (NEGATIVE); MUCUS, URINE RFX SMALL (NEGATIVE); NITRITE, URINE AUTO RFX NEGATIVE (NEGATIVE); RBC, URINE AUTO RFX 4 /HPF (0-3); SPECIFIC GRAVITY UR AUTO RFX 1.023 (1.002-1.035); SQUAM EPITHELIAL CELL UR AURFX 26 /HPF (0-6); WBC, URINE AUTO RFX 8 /HPF (0-3)
[2018-03-08] MEDS: HYDROCORTISONE 1% CREAM 30 GM TOP (17:59)
[2018-03-08 18:23] LABS: LEUKOCYTE ESTERASE UR AUTO RFX 2+ (NEGATIVE)
[2018-03-08] MEDS ORDERED: GLUCAGON FOR INJ 1 MG VIAL (J1610) SC (18:45)
[2018-03-08] MEDS ORDERED: ONDANSETRON 4 MG ORAL DISINTEGRATING TAB (Q0162 PER 1MG) PO (18:45)
[2018-03-08] MEDS ORDERED: hydrOXYzine 25 MG TAB PO (18:45)
[2018-03-08] MEDS ORDERED: DEXTROSE 50% 50 ML SYRINGE IV (18:45)
[2018-03-08] MEDS ORDERED: GLUCOSE 4 GM CHEW TABLET PO (18:45)
[2018-03-08] MEDS: NS 1,000 ML IV (19:00)
[2018-03-08] MEDS ORDERED: NYSTATIN 100,000 UNITS/GM TOPICAL PWD 15 GM TOP (20:00)
[2018-03-08 20:13] LABS: FERRITIN 29 NG/ML (8-252); FREE T4 1.32 NG/DL (0.76-1.46); IRON (FE) 52 UG/DL (50-170); PERCENT SATURATION 18.8 % (13.2-45.0); TOTAL IRON BINDING CAPACITY 277 UG/DL (250-450)
[2018-03-08 20:15] LABS: THYROID STIMULATING HORMONE 0.151 uIU/ML (0.358-3.740)
[2018-03-08] MEDS: HumaLOG INSULIN (NovoLOG) PER UNIT SC (21:00)
[2018-03-08 21:59] LABS: BEDSIDE GLUCOSE 118 MG/DL (83-110)
[2018-03-08] MEDS: MEMANTINE 5MG TABLET (NAMENDA) PO (22:07)
[2018-03-08 22:36] LABS: HEMATOCRIT 35.9 % (36.0-47.0)
[2018-03-09 05:17] LABS: HEMATOCRIT 34.8 % (36.0-47.0); HEMOGLOBIN 11.4 g/dl (12.0-15.5); MEAN CORPUSCULAR HEMOGLOBIN 30.5 pg (27.0-33.0); MEAN CORPUSCULAR HGB CONC 32.8 g/dl (32.0-36.5); PLATELET COUNT, AUTOMATED 146 10^3/uL (150-450); RED BLOOD COUNT 3.74 10^6/uL (4.00-5.40); RED CELL DISTRIBUTION WIDTH 14.1 % (11.5-14.5); WHITE BLOOD COUNT 5.5 10^3/uL (4.0-10.0)
[2018-03-09 05:40] LABS: ANION GAP 8 MEQ/L (8-16); BLOOD UREA NITROGEN 18 MG/DL (7-18); CALCIUM LEVEL 8.6 MG/DL (8.8-10.2); CARBON DIOXIDE LEVEL 25 MEQ/L (21-32); CHLORIDE LEVEL 113 MEQ/L (98-107); CREATININE FOR GFR 1.14 MG/DL (0.55-1.30); FREE T4 1.24 NG/DL (0.76-1.46); GLOMERULAR FILTRATION RATE 48.5 (>32); GLUCOSE, FASTING 117 MG/DL (70-100); POTASSIUM SERUM 4.1 MEQ/L (3.5-5.1); SODIUM LEVEL 146 MEQ/L (136-145)
[2018-03-09] MEDS: NS 1,000 ML IV (05:51)
[2018-03-09] MEDS: LEVOTHYROXINE 125MCG TABLET (0.125MG) PO (05:51)
[2018-03-09] MEDS ORDERED: SITagliptin 50 MG TAB (JANUVIA) PO (08:00)
[2018-03-09 08:05] LABS: RETIC HEMOGLOBIN EQUIVALENT 36.3 pg (24-36); RETICULOCYTE # 70.3 10^9/L (17-77); RETICULOCYTE % 1.9 % (0.5-1.5)
[2018-03-09] MEDS: HEPARIN SOD (PORCINE) 5000 UNITS/ML VIAL SQ ×2 (09:37→20:26)
[2018-03-09] MEDS: OMEPRAZOLE 20 MG CAP PO (09:38)
[2018-03-09] MEDS: HumaLOG INSULIN (NovoLOG) PER UNIT SC ×4 (09:38→20:27)
[2018-03-09] MEDS: MAGNESIUM GLUCONATE 500 MG TAB PO (09:38)
[2018-03-09] MEDS: ASPIRIN 81 MG ENTERIC TAB PO (09:38)
[2018-03-09] MEDS: VITAMIN D 1,000 INTERNATIONAL UNITS TABLET PO (09:39)
[2018-03-09 11:39] LABS: BEDSIDE GLUCOSE 163 MG/DL (83-110)
[2018-03-09 16:53] LABS: BEDSIDE GLUCOSE 186 MG/DL (83-110)
[2018-03-09 19:46] LABS: BEDSIDE GLUCOSE 94 MG/DL (83-110)
[2018-03-09] MEDS: MEMANTINE 5MG TABLET (NAMENDA) PO (20:27)
[2018-03-09] MEDS: SIMVASTATIN 40 MG TAB PO (20:27)
[2018-03-10 05:50] LABS: HEMATOCRIT 32.1 % (36.0-47.0); HEMOGLOBIN 10.5 g/dl (12.0-15.5); MEAN CORPUSCULAR HEMOGLOBIN 30.3 pg (27.0-33.0); MEAN CORPUSCULAR HGB CONC 32.7 g/dl (32.0-36.5); MEAN CORPUSCULAR VOLUME 92.8 fl (80.0-96.0); PLATELET COUNT, AUTOMATED 129 10^3/uL (150-450); RED BLOOD COUNT 3.46 10^6/uL (4.00-5.40); WHITE BLOOD COUNT 4.3 10^3/uL (4.0-10.0)
[2018-03-10] MEDS: LEVOTHYROXINE 125MCG TABLET (0.125MG) PO (06:10)
[2018-03-10 06:24] LABS: ANION GAP 5 MEQ/L (8-16); BLOOD UREA NITROGEN 20 MG/DL (7-18); CALCIUM LEVEL 8.1 MG/DL (8.8-10.2); CARBON DIOXIDE LEVEL 27 MEQ/L (21-32); CHLORIDE LEVEL 110 MEQ/L (98-107); CREATININE FOR GFR 1.36 MG/DL (0.55-1.30); GLOMERULAR FILTRATION RATE 39.5 (>32); GLUCOSE, FASTING 139 MG/DL (70-100); POTASSIUM SERUM 3.8 MEQ/L (3.5-5.1); SODIUM LEVEL 142 MEQ/L (136-145)
[2018-03-10] MEDS: LR 1,000 ML IV (08:04)
[2018-03-10] MEDS: HumaLOG INSULIN (NovoLOG) PER UNIT SC ×4 (08:04→21:09)
[2018-03-10] MEDS: ASPIRIN 81 MG ENTERIC TAB PO (08:05)
[2018-03-10] MEDS: MAGNESIUM GLUCONATE 500 MG TAB PO (08:05)
[2018-03-10] MEDS: VITAMIN D 1,000 INTERNATIONAL UNITS TABLET PO (08:05)
[2018-03-10] MEDS: OMEPRAZOLE 20 MG CAP PO (08:05)
[2018-03-10] MEDS: HEPARIN SOD (PORCINE) 5000 UNITS/ML VIAL SQ ×2 (08:05→21:08)
[2018-03-10] MEDS: FLUBLOK(EGG FREE)(QUAD)INFLUENZA VACC 0.5ML SYRINGE (90682)18YRS&OLDER IM (08:07)
[2018-03-10 11:28] LABS: BEDSIDE GLUCOSE 91 MG/DL (83-110)
[2018-03-10 17:36] LABS: BEDSIDE GLUCOSE 142 MG/DL (83-110)
[2018-03-10 20:58] LABS: BEDSIDE GLUCOSE 167 MG/DL (83-110)
[2018-03-10] MEDS: SIMVASTATIN 40 MG TAB PO (21:09)
[2018-03-10] MEDS: MEMANTINE 5MG TABLET (NAMENDA) PO (21:09)
[2018-03-11] MEDS: LEVOTHYROXINE 125MCG TABLET (0.125MG) PO (06:01)
[2018-03-11 06:18] LABS: HEMATOCRIT 32.9 % (36.0-47.0); HEMOGLOBIN 10.9 g/dl (12.0-15.5); MEAN CORPUSCULAR HEMOGLOBIN 30.9 pg (27.0-33.0); MEAN CORPUSCULAR HGB CONC 33.1 g/dl (32.0-36.5); MEAN CORPUSCULAR VOLUME 93.2 fl (80.0-96.0); PLATELET COUNT, AUTOMATED 126 10^3/uL (150-450); RED BLOOD COUNT 3.53 10^6/uL (4.00-5.40); RED CELL DISTRIBUTION WIDTH 13.9 % (11.5-14.5); WHITE BLOOD COUNT 4.1 10^3/uL (4.0-10.0)
[2018-03-11 06:41] LABS: ANION GAP 9 MEQ/L (8-16); BLOOD UREA NITROGEN 19 MG/DL (7-18); CALCIUM LEVEL 8.4 MG/DL (8.8-10.2); CARBON DIOXIDE LEVEL 24 MEQ/L (21-32); CHLORIDE LEVEL 112 MEQ/L (98-107); GLOMERULAR FILTRATION RATE 45.7 (>32); GLUCOSE, FASTING 119 MG/DL (70-100); POTASSIUM SERUM 3.8 MEQ/L (3.5-5.1); SODIUM LEVEL 145 MEQ/L (136-145)
[2018-03-11] MEDS: ASPIRIN 81 MG ENTERIC TAB PO (08:56)
[2018-03-11] MEDS: VITAMIN D 1,000 INTERNATIONAL UNITS TABLET PO (08:56)
[2018-03-11] MEDS: HEPARIN SOD (PORCINE) 5000 UNITS/ML VIAL SQ (08:56)
[2018-03-11] MEDS: OMEPRAZOLE 20 MG CAP PO (08:56)
[2018-03-11] MEDS: HumaLOG INSULIN (NovoLOG) PER UNIT SC ×2 (08:57→12:00)
[2018-03-11 11:48] LABS: FOLATE > 24.0 NG/ML (>5.4)
[2018-03-11] MEDS: MAGNESIUM GLUCONATE 500 MG TAB PO (12:24)
[2018-03-12 10:43] LABS: PRETREATED FOLATE FOR RBCFOL 16.5 NG/ML; RBC FOLATE 965.2 NG/ML (280-791)
== END 2018-03-11 12:45 | disposition home or self-care (01) | DRG 641 ==
LOC: M PCU 03-09 11:14 → M MSPAV 03-10 14:27 → M ED 13:38 → M ED INP 18:55 → M PCU 21:36
DX: E86.0 Dehydration (principal); F03.90 Unspecified dementia, unspecified severity, without behavioral disturbance, psychotic disturbance, mood disturbance, and anxiety; F32.9 Major depressive disorder, single episode, unspecified; E03.9 Hypothyroidism, unspecified; E11.22 Type 2 diabetes mellitus with diabetic chronic kidney disease; E78.5 Hyperlipidemia, unspecified; I25.10 Atherosclerotic heart disease of native coronary artery without angina pectoris; E55.9 Vitamin D deficiency, unspecified; K21.9 Gastro-esophageal reflux disease without esophagitis; R41.82 Altered mental status, unspecified; M50.30 Other cervical disc degeneration, unspecified cervical region; N18.3 Chronic kidney disease, stage 3 (moderate); B36.9 Superficial mycosis, unspecified; R26.89 Other abnormalities of gait and mobility; Z95.5 Presence of coronary angioplasty implant and graft; Z90.49 Acquired absence of other specified parts of digestive tract; Z90.710 Acquired absence of both cervix and uterus; Z79.82 Long term (current) use of aspirin; Z79.84 Long term (current) use of oral hypoglycemic drugs; Z79.899 Other long term (current) drug therapy

== ENCOUNTER → 2018-03-19 | Outpatient (CLI) | payer MEDICARE ==
[2018-03-19 13:37] LABS: BASO # 0.1 10^3/uL (0.0-0.2); BASO % 0.9 % (0.0-1.0); EOS # 0.4 10^3/uL (0.0-0.50); EOS % 6.2 % (0.0-3.0); HEMATOCRIT 40.5 % (36.0-47.0); HEMOGLOBIN 12.8 g/dl (12.0-15.5); IMMATURE GRANULOCYTE % 0.3 % (0-3.0); LYMPH # 1.6 10^3/uL (1.5-4.5); MEAN CORPUSCULAR HEMOGLOBIN 30.2 pg (27.0-33.0); MEAN CORPUSCULAR HGB CONC 31.6 g/dl (32.0-36.5); MEAN CORPUSCULAR VOLUME 95.5 fl (80.0-96.0); MONO # 0.4 10^3/uL (0.0-0.8); MONO % 7.2 % (0.0-5.0); NEUTROPHILS # 3.4 10^3/uL (1.8-7.7); NEUTROPHILS % 58.4 % (36.0-66.0); PLATELET COUNT, AUTOMATED 180 10^3/uL (150-450); RED BLOOD COUNT 4.24 10^6/uL (4.00-5.40); RED CELL DISTRIBUTION WIDTH 14.1 % (11.5-14.5); WHITE BLOOD COUNT 5.8 10^3/uL (4.0-10.0)
[2018-03-19 19:28] LABS: ALBUMIN 3.3 GM/DL (3.2-5.2); ALBUMIN/GLOBULIN RATIO 0.97 (1.00-1.93); ALKALINE PHOSPHATASE 153 U/L (45-117); ALT/SGPT 34 U/L (12-78); ANION GAP 11 MEQ/L (8-16); AST/SGOT 46 U/L (7-37); BILIRUBIN,TOTAL 0.6 MG/DL (0.2-1.0); BLOOD UREA NITROGEN 19 MG/DL (7-18); CARBON DIOXIDE LEVEL 24 MEQ/L (21-32); CHLORIDE LEVEL 107 MEQ/L (98-107); CREATININE FOR GFR 1.56 MG/DL (0.55-1.30); FREE T4 1.13 NG/DL (0.76-1.46); GLOMERULAR FILTRATION RATE 33.7 (>32); GLUCOSE, FASTING 158 MG/DL (70-100); POTASSIUM SERUM 4.2 MEQ/L (3.5-5.1); SODIUM LEVEL 142 MEQ/L (136-145); THYROID STIMULATING HORMONE 0.219 uIU/ML (0.358-3.740); TOTAL PROTEIN 6.7 GM/DL (6.4-8.2)
[2018-03-19 23:36] LABS: ESTIMATED AVERAGE GLUCOSE 128 MG/DL (60-110); HEMOGLOBIN A1c 6.1 %
== END ==
LOC: M SMT 09:21
DX: E11.21 Type 2 diabetes mellitus with diabetic nephropathy (principal); D64.9 Anemia, unspecified; E03.9 Hypothyroidism, unspecified
CPT/HCPCS: 84443

== ENCOUNTER 2018-05-09 09:23 | Inpatient (IN) | payer MEDICARE ==
[2018-05-09] MEDS: MORPHINE 4 MG/ML 1ML VIAL/SYRINGE (J2270) IV (10:00)
[2018-05-09] MEDS: ADACEL/BOOSTRIX VACCINE (DIPHTH/PERTUSS/ACELL/TETANUS)0.5ML SYR (90715) IM (10:25)
[2018-05-09] MEDS: NS 1,000 ML IV (10:32)
[2018-05-09 11:28] LABS: BASO % 0.7 % (0.0-1.0); EOS # 0.3 10^3/uL (0.0-0.50); EOS % 4.9 % (0.0-3.0); HEMATOCRIT 36.5 % (36.0-47.0); HEMOGLOBIN 12.1 g/dl (12.0-15.5); IMMATURE GRANULOCYTE % 0.2 % (0-3.0); LYMPH # 1.6 10^3/uL (1.5-4.5); LYMPH % 26.4 % (24.0-44.0); MEAN CORPUSCULAR HEMOGLOBIN 30.6 pg (27.0-33.0); MEAN CORPUSCULAR HGB CONC 33.2 g/dl (32.0-36.5); MEAN CORPUSCULAR VOLUME 92.2 fl (80.0-96.0); MONO # 0.4 10^3/uL (0.0-0.8); MONO % 6.6 % (0.0-5.0); NEUTROPHILS # 3.6 10^3/uL (1.8-7.7); NEUTROPHILS % 61.2 % (36.0-66.0); PLATELET COUNT, AUTOMATED 157 10^3/uL (150-450); RED BLOOD COUNT 3.96 10^6/uL (4.00-5.40); RED CELL DISTRIBUTION WIDTH 13.3 % (11.5-14.5); WHITE BLOOD COUNT 5.9 10^3/uL (4.0-10.0)
[2018-05-09 12:56] LABS: INR 1.02; PROTHROMBIN TIME 13.6 SECONDS (12.1-14.4)
[2018-05-09 13:21] LABS: ANION GAP 7 MEQ/L (8-16); BLOOD UREA NITROGEN 16 MG/DL (7-18); CARBON DIOXIDE LEVEL 28 MEQ/L (21-32); CHLORIDE LEVEL 107 MEQ/L (98-107); CREATININE FOR GFR 1.28 MG/DL (0.55-1.30); GLOMERULAR FILTRATION RATE 42.4 (>32); GLUCOSE, FASTING 155 MG/DL (70-100); POTASSIUM SERUM 4.7 MEQ/L (3.5-5.1); SODIUM LEVEL 142 MEQ/L (136-145)
[2018-05-09 13:23] LABS: CPK CREATINE PHOSPHOKINASE 75 U/L (26-192); MB/CK RELATIVE INDEX 1.73 (< OR =4); TROPONIN I < 0.02 NG/ML (< 0.10)
[2018-05-09] MEDS ORDERED: ONDANSETRON 4 MG ORAL DISINTEGRATING TAB (Q0162 PER 1MG) PO (14:30)
[2018-05-09] MEDS ORDERED: LIDOCAINE 2% INJ 100 MG/5 ML SDV (FOR ANES.) As Ordered (17:17)
[2018-05-09] MEDS ORDERED: PROPOFOL 200 MG/20 ML VIAL As Ordered (17:17)
[2018-05-09] MEDS ORDERED: dexameTHASONE 4 MG/ML 1ML VIAL (J1100) As Ordered (17:18)
[2018-05-09] MEDS ORDERED: ONDANSETRON 4MG/2ML VIAL (J2405) As Ordered (17:18)
[2018-05-09] MEDS ORDERED: ROCURONIUM BROMIDE 50 MG/5 ML VIAL As Ordered (17:20)
[2018-05-09] MEDS ORDERED: fentaNYL 100 MCG/2 ML INJECTION (J3010) As Ordered (17:21)
[2018-05-09] MEDS ORDERED: MIDAZOLAM INJ 2 MG/2 ML VIAL (J2250) As Ordered (17:21)
[2018-05-09] MEDS ORDERED: BUPIVACAINE/EPIN 0.25% 30 ML VIAL As Ordered (17:22)
[2018-05-09 17:39] LABS: BEDSIDE GLUCOSE 109 MG/DL (83-110)
[2018-05-09] MEDS: ceFAZolin 2 GM/D5W 50 ML IV BAG (J0690 PER 500MG) As Ordered (19:10)
[2018-05-09] MEDS ORDERED: PHENYLephrine HCL 500 MCG/5 ML (100MCG/ML) SYRINGE (J2370) As Ordered (19:52)
[2018-05-09] MEDS: ceFAZolin 1GM INJ (J0690 PER 500MG) As Ordered (19:54)
[2018-05-09] MEDS ORDERED: ONDANSETRON 4MG/2ML VIAL (J2405) IV (20:45)
[2018-05-09] MEDS: LR 1,000 ML IV (20:45)
[2018-05-09] MEDS ORDERED: ACETAMINOPHEN TAB 650MG DOSE (2X325MG) PO (20:45)
[2018-05-09] MEDS ORDERED: fentaNYL 100 MCG/2 ML INJECTION (J3010) IV (20:45)
[2018-05-09] MEDS: D5W/LR 1,000 ML IV (21:15)
[2018-05-09] MEDS: PERCOCET 5MG/325MG TAB PO (22:58)
[2018-05-10] MEDS: MORPHINE 4 MG/ML 1ML VIAL/SYRINGE (J2270) IV (00:20)
[2018-05-10] MEDS: LEVOTHYROXINE 125MCG TABLET (0.125MG) PO (05:34)
[2018-05-10] MEDS: PERCOCET 5MG/325MG TAB PO ×2 (05:34→09:24)
[2018-05-10 06:39] LABS: HEMATOCRIT 30.6 % (36.0-47.0); MEAN CORPUSCULAR HEMOGLOBIN 30.4 pg (27.0-33.0); MEAN CORPUSCULAR HGB CONC 32.7 g/dl (32.0-36.5); PLATELET COUNT, AUTOMATED 120 10^3/uL (150-450); RED BLOOD COUNT 3.29 10^6/uL (4.00-5.40); RED CELL DISTRIBUTION WIDTH 13.4 % (11.5-14.5); WHITE BLOOD COUNT 5.9 10^3/uL (4.0-10.0)
[2018-05-10 06:54] LABS: ANION GAP 6 MEQ/L (8-16); BLOOD UREA NITROGEN 17 MG/DL (7-18); CALCIUM LEVEL 8.3 MG/DL (8.8-10.2); CARBON DIOXIDE LEVEL 25 MEQ/L (21-32); CHLORIDE LEVEL 109 MEQ/L (98-107); CREATININE FOR GFR 1.37 MG/DL (0.55-1.30); GLOMERULAR FILTRATION RATE 39.2 (>32); GLUCOSE, FASTING 209 MG/DL (70-100); POTASSIUM SERUM 4.3 MEQ/L (3.5-5.1); SODIUM LEVEL 140 MEQ/L (136-145)
[2018-05-10] MEDS: ASPIRIN 81 MG ENTERIC TAB PO (09:23)
[2018-05-10] MEDS: OMEPRAZOLE 20 MG CAP PO (09:23)
[2018-05-10] MEDS: SERTRALINE HCL 50 MG TAB PO (09:23)
[2018-05-10] MEDS: MAGNESIUM GLUCONATE 500 MG TAB PO (09:23)
[2018-05-10] MEDS: MULTIVITAMINS/MINERALS THERAP 1 TAB PO (09:23)
[2018-05-10] MEDS: MEMANTINE 5MG TABLET (NAMENDA) PO (09:23)
[2018-05-10] MEDS: SIMVASTATIN 40 MG TAB PO (09:24)
[2018-05-10] MEDS: METAMUCIL (PSYLLIUM) PACKET PO (09:30)
[2018-05-10] MEDS: MIRALAX *UNIT DOSE* 17GM PACKET PO (09:31)
== END 2018-05-10 13:30 | disposition home or self-care (01) | DRG 493 ==
LOC: M ED 09:23 → M ED INP 12:46 → M MS5PR 13:45
PROC: 0QSK04Z Reposition Left Fibula with Internal Fixation Device, Open Approach (ICD-10-PCS; principal; 2018-05-09 11:34)
DX: S82.842A Displaced bimalleolar fracture of left lower leg, initial encounter for closed fracture (principal); I50.32 Chronic diastolic (congestive) heart failure; W10.8XXA Fall (on) (from) other stairs and steps, initial encounter; Y92.018 Other place in single-family (private) house as the place of occurrence of the external cause; I25.10 Atherosclerotic heart disease of native coronary artery without angina pectoris; F03.90 Unspecified dementia, unspecified severity, without behavioral disturbance, psychotic disturbance, mood disturbance, and anxiety; I25.2 Old myocardial infarction; E78.5 Hyperlipidemia, unspecified; E11.22 Type 2 diabetes mellitus with diabetic chronic kidney disease; E03.9 Hypothyroidism, unspecified; Z95.5 Presence of coronary angioplasty implant and graft; Z79.82 Long term (current) use of aspirin; Z79.84 Long term (current) use of oral hypoglycemic drugs; Z79.899 Other long term (current) drug therapy; Z88.8 Allergy status to other drugs, medicaments and biological substances; N18.3 Chronic kidney disease, stage 3 (moderate); M51.36 Other intervertebral disc degeneration, lumbar region

== ENCOUNTER 2018-05-12 23:25 | Emergency (ER) | payer MEDICARE | END 2018-05-13 02:28 | disposition home or self-care (01) | LOC: M ED 23:25 | DX: S82.892A Other fracture of left lower leg, initial encounter for closed fracture (principal); S39.92XA Unspecified injury of lower back, initial encounter; W19.XXXA Unspecified fall, initial encounter; I12.9 Hypertensive chronic kidney disease with stage 1 through stage 4 chronic kidney disease, or unspecified chronic kidney disease; N18.3 Chronic kidney disease, stage 3 (moderate); I25.2 Old myocardial infarction; J44.9 Chronic obstructive pulmonary disease, unspecified; E78.5 Hyperlipidemia, unspecified; Y92.009 Unspecified place in unspecified non-institutional (private) residence as the place of occurrence of the external cause | CPT/HCPCS: 72128 ==

== ENCOUNTER → 2018-05-30 | Outpatient (REF) | payer MEDICARE ==
[~2018-05-30] MED LIST changes: +/PANT40TA; +/PANT40TA OR; +AFRI0.65; +AMO500 PO; +ASPI1TAB PO; +ASPI325T; +ASPI81TA83 OR; +ASPI81TA85 PO; +ATARAX25 PO; +AUGM875T28 PO; +B-12100T2 PO; +BABY81CH; +CALCCHW12; +CIPR-250 PO; +CLAR500T; +COZA50TA18 OR; +D 202000 PO; +DEPA250T32 PO; +DIOV160T5; +DIOV160T5 OR; +DONETAB5 PO; +EXEL4.6D TD; +FERR325T OR; +FLUO20CA8 PO; -GASTROGRAFIN SOLUTION 30ML (Q9963) As Ordered; +GLUC500T; +GLUC500T PO; +GLUCCOSEAC TOPICAL; +GLUCOP1000 PO; +GLUCOSE TEST; +HUMULIN; +HUMULINN SC; +HYDR-3363 PO; +INSULADS INJ; +INSULANT SC; +INSULINSYR SUBQ; +ISOS20TA3; +ISOS20TA3 OR; -ISOVUE-370 76% 100ML VIAL (Q9967) As Ordered; +JANU100T PO; +LANCMIS; +LEVO125T4 PO; +LEVO137T14 PO; +LEVOXYL25 MCG; +LEVOXYL25 MCG OR; +LIPI10TA OR; +LOPR50TA OR; +LOPR50TA PO; +LOSA50TA88 PO; +MAGN500T2; +MAGN500T2 OR; +MAGN500T2 PO; +MAGN500T6 PO; +MEMA1TAB PO; +METO25TA2; +MULT1TAB18 PO; +NAME10TA PO; +NAME5TAB13 PO; +NIZORALSHA TOPICAL; +OMEP10CASR PO; +OMEP20CA3 PO; +ONDA4TAB6 PO; +PANT40TA3 PO; +PERCOCET PO; +PLAV75TA2; +PLAV75TA2 OR; +PREMAR1.25 PO; +PROZ20CA OR; +REST0.05; +SERT50TA PO; +SIMV20TA2 OR; +SIMV40TA2 PO; +SITA50TAB PO; +SYNT150T PO; +SYNTHROID PO; +TESS100C; +TYLE167L PO; +VICO5TAB; +VICO5TAB16 PO; +VITA250L PO; +VITA500T3 PO; +VITACAP31 PO; +VITATAB11 PO; +VITMTA PO; +ZOCO20TA PO; +ZOCOR10 PO; +ZOLOFT50 PO; +ZONI25CA2 PO; +coumadin
== END ==
LOC: M LAB REF 18:13
PROVIDERS: ATTEND Physician Assistant
DX: R35.0 Frequency of micturition (principal)

== ENCOUNTER → 2018-06-24 | Outpatient (CLI) | payer MEDICARE ==
[2018-06-24 13:23] LABS: BASO # 0.1 10^3/uL (0.0-0.2); BASO % 0.9 % (0.0-1.0); EOS # 0.3 10^3/uL (0.0-0.50); EOS % 4.4 % (0.0-3.0); HEMOGLOBIN 12.7 g/dl (12.0-15.5); LYMPH # 1.7 10^3/uL (1.5-4.5); LYMPH % 26.8 % (24.0-44.0); MEAN CORPUSCULAR HEMOGLOBIN 29.8 pg (27.0-33.0); MEAN CORPUSCULAR HGB CONC 31.8 g/dl (32.0-36.5); MEAN CORPUSCULAR VOLUME 93.9 fl (80.0-96.0); MONO # 0.4 10^3/uL (0.0-0.8); MONO % 5.9 % (0.0-5.0); NEUTROPHILS # 3.9 10^3/uL (1.8-7.7); NEUTROPHILS % 61.7 % (36.0-66.0); PLATELET COUNT, AUTOMATED 174 10^3/uL (150-450); RED BLOOD COUNT 4.26 10^6/uL (4.00-5.40); WHITE BLOOD COUNT 6.4 10^3/uL (4.0-10.0)
[2018-06-24 13:34] LABS: CALCIUM LEVEL 9.4 MG/DL (8.8-10.2); CHOLESTEROL RISK RATIO 3.411 (<5); CREATININE FOR GFR 1.36 MG/DL (0.55-1.30); FREE T4 1.14 NG/DL (0.76-1.46); GLOMERULAR FILTRATION RATE 39.5 (>32); POTASSIUM SERUM 4.2 MEQ/L (3.5-5.1); THYROID STIMULATING HORMONE 2.62 uIU/ML (0.358-3.740)
[2018-06-24 13:40] LABS: HEMOGLOBIN A1c 6.9 %
== END ==
LOC: M SMT 09:35
PROVIDERS: ATTEND Physician Assistant
DX: E03.9 Hypothyroidism, unspecified (principal); R10.32 Left lower quadrant pain; E11.21 Type 2 diabetes mellitus with diabetic nephropathy; E78.00 Pure hypercholesterolemia, unspecified

== ENCOUNTER 2018-07-27 13:48 | Emergency (ER) | payer MEDICARE ==
[~2018-07-27] VITALS: Ht 167.6 cm; Wt 90.9 kg
--- NOTE | 2018-07-27 14:33 | REP ---
Clinical: Altered mental status. Possible acute cerebrovascular accident. Comparison: 03/08/2018 Findings: Age-related atrophy and microvascular ischemic changes are appreciated. The ventricles and sulci are symmetric. Barron-white differentiation is maintained. There is no evidence for acute intracranial hemorrhage, mass/mass effect, pathology or infarction. No extra-axial fluid collection. Calvarium is intact. Paranasal sinuses and mastoid air cells are clear. Impression: Age related atrophy and microvascular ischemic changes. No acute intracranial hemorrhage, infarction, or mass/mass effect. Electronically Signed by Mic Soto MD 07/27/2018 02:25 P
--- NOTE | 2018-07-27 14:38 | REP ---
Clinical: Cerebrovascular accident. Comparison: 05/13/2018 . Technique: Axial noncontrast images from the skull base to the thoracic inlet with coronal and sagittal re-formations Findings: Advanced multilevel degenerative disc osteophyte complexes are appreciated including diffuse osteophytosis, endplate sclerosis with disc space narrowing, hypertrophic facet arthropathy and chronic grade 1 anterolisthesis at the C3-4 level. Findings appear relatively stable compared to 05/13/2018. No acute fracture / compression injury or subluxation. Pronounced canal stenosis due to posterior osteophyte and chronic disc bulge at the C5-6 level with AP diameter of 5.5 mm again noted and unchanged. Impression: Advanced multilevel degenerative spondylosis essentially stable compared to 05/13/2018. No evidence for acute fracture / compression injury or subluxation. Electronically Signed by Mic Soto MD 07/27/2018 02:30 P
--- NOTE | 2018-07-27 14:56 | REP ---
Clinical: Altered mental status . Comparison: 05/09/2018 . Findings: The mediastinum and cardiac silhouette are stable and within normal limits for portable technique. The lung cardona are clear without acute consolidation, effusion, or pneumothorax. Skeletal structures are intact. Impression: No acute cardiopulmonary process appreciated. Electronically Signed by Mic Soto MD 07/27/2018 02:47 P
--- NOTE | 2018-07-27 14:57 | REP ---
Clinical: Trauma/fall. Technique: AP and lateral views of the left tibia / fibula. Findings: Age-related osteopenia and degenerative changes are appreciated. Evidence for prior fixation for distal fibular fracture. No acute fracture or dislocation. No subcutaneous emphysema or foreign body. Impression: No acute fracture dislocation. Electronically Signed by Mic Soto MD 07/27/2018 02:48 P
--- NOTE | 2018-07-27 14:58 | REP ---
Clinical: Trauma/fall. Technique: AP, lateral, bilateral oblique views of the left ankle. Findings: Evidence of prior open reduction and fixation for distal fibular fracture. Osteopenia and moderate arthritic degenerative changes are appreciated. No acute fracture dislocation. Impression: No acute fracture or dislocation. Electronically Signed by Mic Soto MD 07/27/2018 02:49 P
[2018-07-27 15:12] LABS: BASO # 0.1 10^3/uL (0.0-0.2); BASO % 0.7 % (0.0-1.0); EOS # 0.2 10^3/uL (0.0-0.50); EOS % 2.6 % (0.0-3.0); HEMATOCRIT 38.8 % (36.0-47.0); HEMOGLOBIN 12.5 g/dl (12.0-15.5); LYMPH # 1.6 10^3/uL (1.5-4.5); LYMPH % 21.5 % (24.0-44.0); MEAN CORPUSCULAR HEMOGLOBIN 29.1 pg (27.0-33.0); MEAN CORPUSCULAR HGB CONC 32.2 g/dl (32.0-36.5); MEAN CORPUSCULAR VOLUME 90.4 fl (80.0-96.0); MONO # 0.5 10^3/uL (0.0-0.8); MONO % 6.3 % (0.0-5.0); NEUTROPHILS # 4.9 10^3/uL (1.8-7.7); NEUTROPHILS % 68.6 % (36.0-66.0); PLATELET COUNT, AUTOMATED 167 10^3/uL (150-450); RED BLOOD COUNT 4.29 10^6/uL (4.00-5.40); WHITE BLOOD COUNT 7.2 10^3/uL (4.0-10.0)
[2018-07-27 15:14] LABS: VENOUS BASE EXCESS -0.5 (-2.0-2.0); VENOUS HCO3 24.2 MEQ/L (23.0-27.0); VENOUS O2 SATURATION 84.8 % (60.0-80.0); VENOUS PARTIAL PRESSURE CO2 39.9 mmHg (38.0-50.0); VENOUS PARTIAL PRESSURE O2 49.5 mmHg (30.0-50.0); VENOUS STANDARD HCO3 23.8 MEQ/L; VENOUS TOTAL CO2 25.4 MEQ/L (24.0-28.0)
[2018-07-27] MEDS ORDERED: ACETAMINOPHEN TAB 650MG DOSE (2X325MG) PO ONE (15:15)
[2018-07-27 15:28] LABS: OSMOLALITY SERUM 295 MOSM/KG (280-301)
[2018-07-27 15:42] LABS: ACETAMINOPHEN LEVEL < 2.0 UG/ML (10.0-30.0); ALBUMIN 3.4 GM/DL (3.2-5.2); ALT/SGPT 23 U/L (12-78); BILIRUBIN,DIRECT 0.2 MG/DL (0.0-0.2); BILIRUBIN,TOTAL 0.6 MG/DL (0.2-1.0); BLOOD UREA NITROGEN 15 MG/DL (7-18); CALCIUM LEVEL 8.6 MG/DL (8.8-10.2); CARBON DIOXIDE LEVEL 26 MEQ/L (21-32); CHLORIDE LEVEL 106 MEQ/L (98-107); CPK CREATINE PHOSPHOKINASE 79 U/L (26-192); CREATININE FOR GFR 1.28 MG/DL (0.55-1.30); ETHYL ALCOHOL (ETHANOL) 0.005 % (0.000-0.010); GLOMERULAR FILTRATION RATE 42.4 (>32); GLUCOSE, FASTING 138 MG/DL (70-100); MB/CK RELATIVE INDEX 1.52 (< OR =4); POTASSIUM SERUM 4.1 MEQ/L (3.5-5.1); SALICYLATE LEVEL < 1.7 MG/DL (5.0-30.0); SODIUM LEVEL 141 MEQ/L (136-145); TOTAL PROTEIN 6.5 GM/DL (6.4-8.2); TROPONIN I < 0.02 NG/ML (< 0.10)
[2018-07-27 17:15] VITALS: BP 137/62
[2018-07-27] MEDS ORDERED: ACET1TAB55 PO (17:18)
--- NOTE | 2018-07-27 19:24 | ECGEPIP ---
Stationary ECG Study [facility] - ED Test Date: 2018-07-27 Pat Name: PETERSON VILLALOBOS Department: Room: - Gender: F [employer] Spir[employer] Clerk: TC : 1935 Requested By: AGATA Newman Order Number: [id number] Reading MD: Criss Winston Measurements Intervals [place] Rate: 62 P: 91 [place]: 208 QRS: -53 QRSD: 101 T: 45 QT: 427 QTc: 436 Interpretive Statements SINUS RHYTHM PATTERN CONSISTENT WITH PULMONARY DISEASE LEFT ANTERIOR FASCICULAR BLOCK LAD NONSPECIFIC ST T WAVE CHANGES DELAYED R WAVE PROGRESSION INFERIOR MS AGE UNDETERMINED CW 05/09/[address] T WAVE CHANGES Electronically Signed On 07-27-2018 19:24:41 EST by Criss Winston
== END 2018-07-27 17:41 | disposition home or self-care (01) ==
LOC: M ED 13:48
DX: M25.572 Pain in left ankle and joints of left foot (principal); G30.9 Alzheimer's disease, unspecified; F02.80 Dementia in other diseases classified elsewhere, unspecified severity, without behavioral disturbance, psychotic disturbance, mood disturbance, and anxiety; I50.9 Heart failure, unspecified; I25.10 Atherosclerotic heart disease of native coronary artery without angina pectoris; E78.5 Hyperlipidemia, unspecified; E11.9 Type 2 diabetes mellitus without complications; E03.9 Hypothyroidism, unspecified; Z88.8 Allergy status to other drugs, medicaments and biological substances; Z79.899 Other long term (current) drug therapy; Z79.82 Long term (current) use of aspirin; Z87.81 Personal history of (healed) traumatic fracture
CPT/HCPCS: 36415; 36600; 70450; 71045; 72125; 73590; 73610; 80048; 80076; 82140; 82550; 82553; 82803; 83605; 83930; 84443; 84484; 85025; 93005; 93041; 99285; G0480

== ENCOUNTER → 2018-09-18 | Outpatient (CLI) | payer MEDICARE ==
[~2018-09-18] MED LIST changes: -/PANT40TA; -/PANT40TA OR; +ACET1TAB55 PO; -ASPI1TAB PO; +ASPI81TA26 PO; +PROT1TAB2; +PROT1TAB2 OR; +SERT-141 PO; -SERT50TA PO; -VICO5TAB16 PO; +VICO5TAB17 PO
[2018-09-18 15:47] LABS: MALB URINE SIEMENS 27.7 MG/L; MAU/CREAT RATIO 33.3 MCG/MG (0.0-30.0)
[2018-09-18 15:50] LABS: ALBUMIN 3.3 GM/DL (3.2-5.2); BILIRUBIN,TOTAL 0.8 MG/DL (0.2-1.0); CALCIUM LEVEL 9.1 MG/DL (8.8-10.2); CREATININE FOR GFR 1.35 MG/DL (0.55-1.30); FREE T4 1.32 NG/DL (0.76-1.46); GLOMERULAR FILTRATION RATE 39.9 (>32); POTASSIUM SERUM 4.4 MEQ/L (3.5-5.1); THYROID STIMULATING HORMONE 2.44 uIU/ML (0.358-3.740); TOTAL PROTEIN 6.8 GM/DL (6.4-8.2)
[2018-09-18 16:14] LABS: HEMOGLOBIN A1c 6.5 %
== END ==
LOC: M SMT 09:31
PROVIDERS: ATTEND Family Medicine
DX: E03.9 Hypothyroidism, unspecified (principal); E78.00 Pure hypercholesterolemia, unspecified; E11.21 Type 2 diabetes mellitus with diabetic nephropathy

== ENCOUNTER → 2018-10-17 | Outpatient (CLI) | payer MEDICARE ==
[~2018-10-17] MED LIST changes: +ASPI-161 PO; +CEPH500C PO; +ONDA4TAB5 PO; +RISP1TAB3 PO; +SYNT125T PO; +VITA500T40 PO
--- NOTE | 2018-10-17 11:55 | REP ---
Clinical: Cellulitis. Technique: AP and lateral views of the left tibia / fibula. Findings: Age-related degenerative changes at the knee and ankle joint are appreciated along with post traumatic changes at the ankle including prior open reduction and fixation of the distal fibula. No acute fracture dislocation. No periosteal reaction. No subcutaneous emphysema or radiodense foreign body. Impression: Degenerative changes at the knee and ankle with osteopenia and evidence for prior open reduction and fixation of the left distal fibula. No obvious acute process. Electronically Signed by Mic Soto MD 10/17/2018 11:47 A
== END ==
LOC: M SMT 11:05 → M WUC 11:05
PROVIDERS: ATTEND Physician Assistant
DX: L03.116 Cellulitis of left lower limb (principal); N39.0 Urinary tract infection, site not specified

== ENCOUNTER 2018-10-29 17:50 | Inpatient (IN) | payer MEDICARE ==
[~2018-10-29] VITALS: Ht 167.6 cm; Wt 109.0 kg
[2018-10-29] MEDS: risperiDONE 1 MG TAB PO SCH (03:44)
[~2018-10-29 17:50] MED LIST changes: -ASPI-161 PO; -CEPH500C PO; -ONDA4TAB5 PO; -RISP1TAB3 PO; -SYNT125T PO; -VITA500T40 PO
[2018-10-29] MEDS ORDERED: RISP1TAB3 PO (18:15)
[2018-10-29] MEDS ORDERED: CEPH500C PO (18:15)
--- NOTE | 2018-10-29 18:48 | REP ---
CT Head without contrast HISTORY: Altered mental status COMPARISON: 07/27/2018 Areas of decreased attenuation are present in the periventricular white matter. This represents small-vessel ischemic disease. There is no intraparenchymal hemorrhage, acute infarct, mass or midline shift. The ventricular system and cortical sulci are dilated consistent with moderate volume loss. There is no extra cerebral collection. There is no fracture. The visualized sinuses are clear. IMPRESSION: 1. Small vessel ischemic disease. 2. Moderate volume loss. Electronically Signed by Sharad Lopez MD 10/29/2018 06:39 P
--- NOTE | 2018-10-29 18:49 | REP ---
Chest one-view HISTORY: Altered mental status Comparison: 07/27/2018 The lungs are clear. The heart is normal in size. The pulmonary vasculature is normal in appearance. Impression: No acute disease. Electronically Signed by Sharad Lopez MD 10/29/2018 06:41 P
[2018-10-29 18:57] LABS: VENOUS BASE EXCESS -4.8 (-2.0-2.0); VENOUS HCO3 20.4 MEQ/L (23.0-27.0); VENOUS O2 SATURATION 49.1 % (60.0-80.0); VENOUS PARTIAL PRESSURE CO2 38.4 mmHg (38.0-50.0); VENOUS PARTIAL PRESSURE O2 28.4 mmHg (30.0-50.0); VENOUS PH 7.344 UNITS (7.330-7.430); VENOUS STANDARD HCO3 19.5 MEQ/L; VENOUS TOTAL CO2 21.6 MEQ/L (24.0-28.0)
[2018-10-29 19:00] LABS: BASO % 0.6 % (0.0-1.0); EOS # 0.1 10^3/uL (0.0-0.50); EOS % 1.7 % (0.0-3.0); HEMATOCRIT 40.2 % (36.0-47.0); LYMPH # 0.5 10^3/uL (1.5-4.5); LYMPH % 7.4 % (24.0-44.0); MEAN CORPUSCULAR HEMOGLOBIN 29.5 pg (27.0-33.0); MEAN CORPUSCULAR HGB CONC 32.3 g/dl (32.0-36.5); MEAN CORPUSCULAR VOLUME 91.4 fl (80.0-96.0); MONO # 0.2 10^3/uL (0.0-0.8); MONO % 2.2 % (0.0-5.0); NEUTROPHILS # 6.1 10^3/uL (1.8-7.7); NEUTROPHILS % 87.8 % (36.0-66.0); PLATELET COUNT, AUTOMATED 148 10^3/uL (150-450); WHITE BLOOD COUNT 6.9 10^3/uL (4.0-10.0)
[2018-10-29] MEDS ORDERED: GI COCKTAIL 50ML BTL(HYOSCYAMINE/MAALOX/LIDOCAINE VISCOUS)(1:3:1) PO ONE (19:00)
[2018-10-29] MEDS ORDERED: ONDANSETRON 4MG/2ML VIAL (J2405) IV ONE ×2 (19:00→21:30)
[2018-10-29 19:38] LABS: ALBUMIN 3.5 GM/DL (3.2-5.2); ALT/SGPT 92 U/L (12-78); BILIRUBIN,DIRECT 1.4 MG/DL (0.0-0.2); BILIRUBIN,TOTAL 1.9 MG/DL (0.2-1.0); BLOOD UREA NITROGEN 15 MG/DL (7-18); CALCIUM LEVEL 9.5 MG/DL (8.8-10.2); CARBON DIOXIDE LEVEL 24 MEQ/L (21-32); CHLORIDE LEVEL 105 MEQ/L (98-107); CPK CREATINE PHOSPHOKINASE 64 U/L (26-192); GLOMERULAR FILTRATION RATE 38.2 (>32); GLUCOSE, FASTING 235 MG/DL (70-100); MB/CK RELATIVE INDEX 1.88 (< OR =4); SODIUM LEVEL 140 MEQ/L (136-145); TOTAL PROTEIN 7.1 GM/DL (6.4-8.2); TROPONIN I < 0.02 NG/ML (< 0.10)
[2018-10-29 19:41] LABS: OSMOLALITY SERUM 297 MOSM/KG (280-301)
[2018-10-29] MEDS ORDERED: ACETAMINOPHEN TAB 650MG DOSE (2X325MG) PO ONE (19:45)
[2018-10-29 20:55] LABS: FREE T4 1.13 NG/DL (0.76-1.46)
[2018-10-29] MEDS ORDERED: PIPERACILLIN/TAZOBACTAM SOD 3.375 GM in D5W MINI-BAG PLUS 50 ML IV ONE (23:15)
[2018-10-29 23:24] LABS: INR 0.97
[2018-10-29 23:25] LABS: PARTIAL THROMBOPLASTIN TIME 27.8 SECONDS (25.4-37.6)
--- NOTE | 2018-10-29 23:27 | REPVR ---
EXAM: US Abdomen Limited, Right Upper Quadrant EXAM DATE/TIME: 10/29/2018 10:35 PM CLINICAL HISTORY: 82 years old, female; Abdominal pain; Acute; Prior surgery; Surgery date: 6+ months; Surgery type: Cholecystectomy; Additional info: Eval for cbd stone TECHNIQUE: Imaging protocol: Real-time ultrasound of the abdomen with image documentation. Examination was focused on the right upper quadrant. COMPARISON: LIVER US 02/20/2017 8:35 AM FINDINGS: Liver: Mildly echogenic, consistent with fatty infiltration. Gallbladder: Surgically absent. Common bile duct: Dilated to approximately 14 mm. Questionable distal common bile duct stone. Pancreas: Unremarkable as visualized. Right kidney: No mass. No definite stones. No hydronephrosis. IMPRESSION: Common bile duct dilatation 2 approximately 14 mm with a questionable common bile duct stone. Correlate with LFTs and, if clinically indicated, ERCP or MRCP. Fatty liver. Electronically signed by: Antonio Julien On 10/29/2018 23:26:59 PM
[2018-10-29] MEDS ORDERED: NS 3,070 ML in APPROPRIATE DILUENT 1 EA IV ONE (23:30)
[2018-10-30] VITALS (7 sets, daily range): BP systolic 115–135; BP diastolic 57–65
[2018-10-30] MEDS ORDERED: ASPI-161 PO (00:30)
[2018-10-30] MEDS ORDERED: SYNT125T PO (00:30)
[2018-10-30] MEDS ORDERED: VITA500T40 PO (00:30)
[2018-10-30] MEDS ORDERED: ONDA4TAB5 PO (00:30)
[2018-10-30] MEDS ORDERED: RISP1TAB3 PO (00:30)
[2018-10-30] MEDS ORDERED: GLUCOSE 4 GM CHEW TABLET PO PRN (03:00)
[2018-10-30] MEDS ORDERED: ONDANSETRON 4 MG TAB (S0181) PO PRN (03:00)
[2018-10-30] MEDS ORDERED: GLUCAGON FOR INJ 1 MG VIAL (J1610) SC PRN (03:00)
[2018-10-30] MEDS ORDERED: DEXTROSE 50% 50 ML SYRINGE IV PRN (03:00)
--- NOTE | 2018-10-30 03:08 | HPEPDOC ---
[facility] Medical History & Physical Date of Admission Oct 30, 2018 Date of Service: Oct 30, 2018 History and Physical CHIEF COMPLAINT: Vomiting/generalized unwell HISTORY OF PRESENT ILLNESS: Patient is an 82-year-old female past medical history of Alzheimer's dementia, coronary disease/AR/stent, HFpEF, HLD, DM, Hypothyroidism brought into the ER by family for reported feeling unwell with nausea and vomiting. Patient herself states that she feels fine and does not know why she is the hospital. She is AAO x2 however, to person and place. In ER, she was found to be febrile to 100.9F with elevated bili and LFTs. US abdomen showed dilated CBD to 14mm with suspected stone in the distal CBD. She was found to also be acutely hypotensive requiring sepsis bundle IVF with some improvement but BP still hovers around 65 MAP. She appears well however and reported no complaints. History all obtained from previous documentation. PAST MEDICAL HISTORY: Refer to [facility] PAST SURGICAL HISTORY: Appendectomy Stent placement Cholecystectomy Hysterectomy SOCIAL HISTORY: Denies tobacco, alcohol or illicit drug use. FAMILY HISTORY: none reported ALLERGIES: Please see below. REVIEW OF SYSTEMS: 10 point review of system negative except as stated in [facility] HOME MEDICATIONS: Please see below. PHYSICAL EXAMINATION: General: No acute distress, Alert Eyes: Normal sclera, EOMI, YARITZA HENT: Atraumatic, neck supple, moist mucous membranes Cardiovascular: Normal rate, normal rhythm. No murmurs appreciated. Pulmonary: Clear to auscultation b/l, no wheezing GI: Soft, nontender, nondistended Skin: Warm and dry Neuro: CN grossly intact. No focal deficits. Strengths equal b/l. Psych: oriented x 3 LABORATORY DATA: See below. IMAGING: Abdominal US- IMPRESSION: Common bile duct dilatation 2 approximately 14 mm with a questionable common bile duct stone. Correlate with LFTs and, if clinically indicated, ERCP or MRCP. Fatty liver. Head CT- no acute processes. MICROBIOLOGY: Please see below. ASSESSMENT AND PLAN: 1. Sepsis 2/2 suspected cholangitis - Febrile to 100.9F with hypotension and LA 2.1. - Elevated LFTs. - Given 30cc/kg bolus with some improvement in BP now hovering at MAP around 65. - Started on Zosyn. - f/u blood cultures. Clinically appear well. However, given advance age, would at least qualify for moderate cholangitis. - Monitor BP, initiated pressor if needed. - Unknown about code status. Need to reach out to family in AM. 2. CAD - resume home meds. 3. HFpEF - No evidence of hypervolemia. - resume home meds. 4. DM - ISS. Accuchecks. DVT ppx: HSQ and SCD Code status: Unknown, verify with family. Vital Signs Vital Signs Date Time Temp Pulse Resp B/P (MAP) Pulse Ox O2 Delivery O2 Flow Rate FiO2 10/30/18 02:32 98.4 67 20 95/50 (65) 96 Room Air Laboratory Data Labs 24H Laboratory Tests 2 10/29/18 18:01: Immature Granulocyte % (Auto) 0.3, White Blood Count 6.9, Red Blood Count 4.40, Hemoglobin 13.0, Hematocrit 40.2, Mean Corpuscular Volume 91.4, Mean Corpuscular Hemoglobin 29.5, Mean Corpuscular Hemoglobin Concent 32.3, Red Cell Distribution Width 15.5H, Platelet Count 148L, Neutrophils (%) (Auto) 87.8H, Lymphocytes (%) (Auto) 7.4L, Monocytes (%) (Auto) 2.2, Eosinophils (%) (Auto) 1.7, Basophils (%) (Auto) 0.6, Neutrophils # (Auto) 6.1, Lymphocytes # (Auto) 0.5L, Monocytes # (Auto) 0.2, Eosinophils # (Auto) 0.1, Basophils # (Auto) 0.0, Nucleated Red Blo od Cells % (auto) 0.0, Anion Gap 11, Glomerular Filtration Rate 38.2, Osmolality 297, Lactic Acid Level 2.1*H, Calcium Level 9.5, Aspartate Amino Transf (AST/SGOT) 262H, Alanine Aminotransferase (ALT/SGPT) 92H, Alkaline Phosphatase 242H, Total Bilirubin 1.9H, Direct Bilirubin 1.4H, Ammonia 24, Total Creatine Kinase 64, Creatine Kinase MB 1.0, Creatine Kinase MB Relative Index 1.88, Troponin I < 0.02, Total Protein 7.1, Albumin 3.5, Albumin/Globulin Ratio 0.97L, Thyroid Stimulating Hormone (TSH) 10.300H, Free Thyroxine 1.13 10/29/18 18:16: Prothrombin Time 13.0, Prothromb Time International Ratio 0.97, Activated Partial Thromboplast Time 27.8, Blood Gas Bicarbonate Standard 19.5, Venous Blood pH 7.344, Venous Blood Partial Pressure CO2 38.4, Venous Blood Partial Pressure O2 28.4L, Venous Blood Total Carbon Dioxide 21.6L, Venous Blood HCO3 20.4L, Venous Blood Oxygen Saturation 49.1L, Venous Blood Base Excess -4.8L 10/29/18 20:25: Urine Color YELLOW, Urine Appearance CLEAR, Urine pH 7.0, Urine Specific [place] 1.017, Urine Protein NEGATIVE, Urine Glucose (UA) 3+H, Urine Ketones NEGATIVE, Urine Blood NEGATIVE, Urine Nitrite NEGATIVE, Urine Bilirubin NEGATIVE, Urine Urobilinogen 4.0H, Urine Leukocyte Esterase NEGATIVE, Urine WBC (Auto) 2, Urine RBC (Auto) 1, Urine Hyaline Casts (Auto) 0, Urine Bacteria (Auto) NEGATIVE, Urine Squamous Epithelial Cells 2, Urine Mucus (Auto) SMALL, Urine Sperm (Auto) CBC/BMP Laboratory Tests 10/29/18 18:01 Red Blood Count 4.40, Mean Corpuscular Volume 91.4, Mean Corpuscular Hemoglobin 29.5, Mean Corpuscular Hemoglobin Concent 32.3, Red Cell Distribution Width 15.5 H, Neutrophils (%) (Auto) 87.8 H, Lymphocytes (%) (Auto) 7.4 L, Monocytes (%) (Auto) 2.2, Eosinophils (%) (Auto) 1.7, Basophils (%) (Auto) 0.6, Neutrophils # (Auto) 6.1, Lymphocytes # (Auto) 0.5 L, Monocytes # (Auto) 0.2, Eosinophils # (Auto) 0.1, Basophils # (Auto) 0.0 Microbiology Microbiology 10/29/18 Blood Culture, Received Pending 10/29/18 Blood Culture, Received Pending Home Medications Scheduled Aspirin (Aspirin EC) 81 Mg Tablet.dr, 81 MG PO DAILY Cholecalciferol (Vitamin D3) (Vitamin D3) 2,000 Unit Tab, 2,000 UNIT PO DAILY Cyanocobalamin (Vitamin B-12) (Vitamin B-12) 500 Mcg Tablet, 500 MCG PO DAILY Levothyroxine Sodium (Synthroid) 125 Mcg Tablet, 125 MCG PO DAILY Magnesium Gluconate (Magnesium Gluconate) 500 Mg Tab, 500 MG PO DAILY Memantine HCl (Namenda) 10 Mg Tab, 10 MG PO DAILY Multivitamins (Thera M Plus Tablet) 1 Tab Tab, 1 TAB PO DAILY Omeprazole (Omeprazole) 20 Mg Cap, 20 MG PO BID Risperidone (Risperidone) 1 Mg Tablet, 1 MG PO QHS Sertraline Hcl (Sertraline HCl) 50 Mg Tab, 50 MG PO DAILY Sitagliptin Phosphate (Januvia) 100 Mg Tab, 100 MG PO DAILY Scheduled PRN Ondansetron HCl (Ondansetron HCl) 4 Mg Tablet, 4 MG PO Q6H PRN for NAUSEA Allergies Coded Allergies: YURI Inhibitors (Verified Allergy, Intermediate, cough, 10/29/18) A-FIB/CHADSVASC A-FIB History Current/History of A-Fib/PAF?: No JULIAN ADHIKARI MD Oct 30, 2018 03:08
[2018-10-30 04:55] LABS: HEMATOCRIT 33.3 % (36.0-47.0); HEMOGLOBIN 10.7 g/dl (12.0-15.5); MEAN CORPUSCULAR HEMOGLOBIN 30.1 pg (27.0-33.0); MEAN CORPUSCULAR HGB CONC 32.1 g/dl (32.0-36.5); MEAN CORPUSCULAR VOLUME 93.8 fl (80.0-96.0); PLATELET COUNT, AUTOMATED 119 10^3/uL (150-450); RED BLOOD COUNT 3.55 10^6/uL (4.00-5.40); WHITE BLOOD COUNT 7.7 10^3/uL (4.0-10.0)
[2018-10-30 05:14] LABS: CALCIUM LEVEL 7.6 MG/DL (8.8-10.2); CREATININE FOR GFR 1.69 MG/DL (0.55-1.30); GLOMERULAR FILTRATION RATE 30.8 (>32); POTASSIUM SERUM 4.2 MEQ/L (3.5-5.1)
[2018-10-30] MEDS ORDERED: SODIUM CHLORIDE 0.9% 1000ML IV ONE (05:45)
[2018-10-30] MEDS: LEVOTHYROXINE 125MCG TABLET (0.125MG) PO SCH (06:00)
[2018-10-30] MEDS: HEPARIN SOD (PORCINE) 5000 UNITS/ML VIAL SC SCH ×3 (06:01→21:29)
[2018-10-30] MEDS: PIPERACILLIN/TAZOBACTAM SOD 2.25 GM in D5W MINI-BAG PLUS 50 ML IV SCH ×4 (06:01→23:36)
--- NOTE | 2018-10-30 07:54 | ECGEPIP ---
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
[2018-10-30] MEDS: OMEPRAZOLE 20 MG CAP PO SCH ×2 (08:37→21:28)
[2018-10-30] MEDS: MEMANTINE 5MG TABLET (NAMENDA) PO SCH (08:37)
[2018-10-30] MEDS: SERTRALINE HCL 50 MG TAB PO SCH (08:37)
[2018-10-30] MEDS: HumaLOG INSULIN (NovoLOG) PER UNIT SC SCH ×4 (08:37→21:00)
[2018-10-30] MEDS: MULTIVITAMINS/MINERALS THERAP 1 TAB PO SCH (08:37)
[2018-10-30] MEDS: MAGNESIUM GLUCONATE 500 MG TAB PO SCH (08:37)
[2018-10-30] MEDS: ASPIRIN 81 MG ENTERIC TAB PO SCH (08:37)
[2018-10-30] MEDS: NS 1,000 ML IV SCH ×3 (09:10→19:05)
[2018-10-30] MEDS: ACETAMINOPHEN TAB 650MG DOSE (2X325MG) PO PRN (13:50)
[2018-10-30] MEDS: NYSTATIN 100,000 UNITS/GM TOPICAL PWD 15 GM TOP SCH ×2 (13:52→21:29)
--- NOTE | 2018-10-30 14:40 | REP ---
MRCP: MRCP is accomplished utilizing multiple heavily T2-weighted sequences in the axial and coronal planes. MIP reconstruction images are performed. There is mild to moderate intrahepatic biliary dilatation. The common hepatic and common bile duct are dilated. Maximum diameter is 16 mm. There are multiple stones throughout the common bile duct. At least six stones are identified. The largest is in the proximal common bile duct measuring 1.6 cm in diameter. There is no pancreatic duct dilatation. There is moderate edema in the carlos a hepatis. Liver and spleen are enlarged on coronal imaging. Liver length is 20.5 cm and splenic length is 17 cm. Two cysts are seen of the left kidney, the larger is in the mid aspect and measures approximately 3 cm in diameter. There is no hydronephrosis bilaterally. Note is made of an aneurysm of the distal abdominal aorta with a maximum AP diameter of 3.8 cm. IMPRESSION: Moderate intrahepatic and extrahepatic biliary dilatation. Common bile duct proximally has a maximum diameter of 16 mm and contains a 16 mm stone as well as five other smaller stones more distally. The five more distal stones are also greater than 1 cm in diameter. Moderate portal edema. Moderate hepatosplenomegaly. Abdominal aortic aneurysm has a maximum diameter of 3.8 cm. Electronically Signed by Gildardo Barron MD 10/31/2018 09:11 A
[2018-10-30] MEDS: risperiDONE 1 MG TAB PO SCH (21:28)
--- NOTE | 2018-10-30 21:59 | IPNPDOC ---
Subjective Date Seen The patient was seen on 10/30/18. Subjective Chief Complaint/HPI Pt was examined at bedside. Pt is awake and alert with baseline memory deficit. Pt's son at bedside. Pt denies any fever chills. Pt does not appear jaundiced. Denies any abdominal pain. hemodynamically stable. General: Reports: Normal Appetite; Denies: Chills, Night Sweats, Fatigue, Malaise Constitutional: Denies: Chills, Fever, Night Sweats Eyes: Denies: Pain, Vision change ENT: Denies: Head Aches, Ear Pain, Dysphagia Skin: Denies: Rash, Lesions, Breakdown Objective Physical Examination General Exam: Positive: Alert, No Acute Distress Eye Exam: Positive: PERRLA, Conjunctiva & lids normal, EOMI; Negative: Sclera icteric ENT Exam: Positive: Atraumatic, Mucous membr. moist/pink, Pharynx Normal Neck Exam: Positive: Supple; Negative: JVD, thyromegaly Chest Exam: Positive: Clear to auscultation, Normal air movement Heart Exam: Positive: Rate Normal, Regular Rhythm, Normal S1, Normal S2; Negative: Murmurs, Rubs Abdomen Exam: Positive: Normal bowel sounds, Soft; Negative: Tenderness, Hepatospenomegaly Assessment /Plan Assessment Pt is 82 y/o F with Hx of alzheimer's disease, s/p cholecystectomy 2 years ago as per son, upon encounter to ED found to have elevated liver enzymes with CBD dilatation in U/S. Abdominal MRI completed on 10/30 confirmed multiple stones in distal of CBD. Pt clinically has improved, VS stable, will continue zosyn, monitor closely, monitor LFT, GI consult. Plan/VTE VTE Prophylaxis Ordered?: Yes Disposition Possible Home with services. VS, I&O[facility] Vital Signs/I&O Vital Signs Date Time Temp Pulse Resp B/P (MAP) Pulse Ox O2 Delivery O2 Flow Rate FiO2 10/30/18 18:20 97.1 66 18 131/60 (83) 99 10/30/18 03:35 Room Air I&O- Last 24 Hours up to 6 AM 10/30/18 06:00 Intake Total 2060 ml Output Total 0 ml Balance 2060 ml Laboratory Data 24H LABS Laboratory Tests 2 10/30/18 04:34: Nucleated Red Blood Cells % (auto) 0.0, Anion Gap 5L, Glomerular Filtration Rate 30.8L, Lactic Acid Followup at 4 Hours 2.5*H, Blood Urea Nitrogen 18, Creatinine 1.69H, Sodium Level 142, Potassium Level 4.2, Chloride Level 111H, Carbon Dioxide Level 26, Calcium Level 7.6#L 10/30/18 08:34: Lactic Acid Level 1.7 10/30/18 11:49: Bedside Glucose (Misc Panel) 206H 10/30/18 16:34: Bedside Glucose (Misc Panel) 120H 10/30/18 20:15: Bedside Glucose (Misc Panel) 134H CBC/BMP Laboratory Tests 10/30/18 04:34 Red Blood Count 3.55 L, Mean Corpuscular Volume 93.8, Mean Corpuscular Hemoglobin 30.1, Mean Corpuscular Hemoglobin Concent 32.1, Red Cell Distribution Width 15.6 H, Calcium Level 7.6 #L Microbiology Microbiology 10/29/18 Blood Culture - Preliminary, Resulted No growth after 24 hours . All specim... 10/29/18 Blood Culture - Preliminary, Resulted No growth after 24 hours . All specim... JASMIN GRAF MD Oct 30, 2018 21:59
[2018-10-31] MEDS: NS 1,000 ML IV SCH ×3 (02:06→16:54)
[2018-10-31] MEDS: HEPARIN SOD (PORCINE) 5000 UNITS/ML VIAL SC SCH ×3 (05:54→21:19)
[2018-10-31] MEDS: PIPERACILLIN/TAZOBACTAM SOD 2.25 GM in D5W MINI-BAG PLUS 50 ML IV SCH ×4 (05:54→23:39)
[2018-10-31] MEDS: LEVOTHYROXINE 125MCG TABLET (0.125MG) PO SCH (05:54)
[2018-10-31 06:00] VITALS: BP 142/60
[2018-10-31 06:24] LABS: BASO % 0.4 % (0.0-1.0); EOS # 0.2 10^3/uL (0.0-0.50); EOS % 4.1 % (0.0-3.0); HEMATOCRIT 31.5 % (36.0-47.0); LYMPH # 0.7 10^3/uL (1.5-4.5); LYMPH % 14.1 % (24.0-44.0); MEAN CORPUSCULAR HEMOGLOBIN 29.8 pg (27.0-33.0); MEAN CORPUSCULAR HGB CONC 31.7 g/dl (32.0-36.5); MEAN CORPUSCULAR VOLUME 93.8 fl (80.0-96.0); MONO # 0.3 10^3/uL (0.0-0.8); MONO % 6.3 % (0.0-5.0); NEUTROPHILS # 3.7 10^3/uL (1.8-7.7); NEUTROPHILS % 74.7 % (36.0-66.0); PLATELET COUNT, AUTOMATED 107 10^3/uL (150-450); RED BLOOD COUNT 3.36 10^6/uL (4.00-5.40); WHITE BLOOD COUNT 4.9 10^3/uL (4.0-10.0)
[2018-10-31 06:34] LABS: INR 1.15; PROTHROMBIN TIME 14.9 SECONDS (12.1-14.4)
[2018-10-31 06:54] LABS: ALBUMIN 2.4 GM/DL (3.2-5.2); BILIRUBIN,TOTAL 3.4 MG/DL (0.2-1.0); CALCIUM LEVEL 8.7 MG/DL (8.8-10.2); CREATININE FOR GFR 1.48 MG/DL (0.55-1.30); GLOMERULAR FILTRATION RATE 35.9 (>32); POTASSIUM SERUM 3.9 MEQ/L (3.5-5.1); TOTAL PROTEIN 5.7 GM/DL (6.4-8.2)
[2018-10-31] MEDS: MEMANTINE 5MG TABLET (NAMENDA) PO SCH (08:00)
[2018-10-31] MEDS: OMEPRAZOLE 20 MG CAP PO SCH ×2 (08:00→21:19)
[2018-10-31] MEDS: MULTIVITAMINS/MINERALS THERAP 1 TAB PO SCH (08:00)
[2018-10-31] MEDS: ASPIRIN 81 MG ENTERIC TAB PO SCH (08:01)
[2018-10-31] MEDS: NYSTATIN 100,000 UNITS/GM TOPICAL PWD 15 GM TOP SCH ×2 (08:01→21:19)
[2018-10-31] MEDS: HumaLOG INSULIN (NovoLOG) PER UNIT SC SCH ×4 (08:01→21:00)
[2018-10-31] MEDS: SERTRALINE HCL 50 MG TAB PO SCH (08:01)
[2018-10-31] MEDS: MAGNESIUM GLUCONATE 500 MG TAB PO SCH (10:02)
[2018-10-31 14:00] VITALS: BP 136/61
--- NOTE | 2018-10-31 17:28 | CR ---
DATE OF CONSULTATION: 10/31/2018 STATUS OF PATIENT: Inpatient. REQUESTING PHYSICIAN: Hospitalist service REASON FOR CONSULTATION: Ascending cholangitis. HISTORY OF PRESENT ILLNESS: This is a very pleasant elderly female with moderately advanced Alzheimer's dementia who was known to have choledocholithiasis back in 2018 when she had at least two endoscopic retrograde cholangiopancreatography (ERCPs) performed, one with a stent and the other one with stone extraction, but the family was at that time told that the extraction of all stones was not complete and that she would have to come back for ERCP number three. The patient never returned for a repeat evaluation due to some complications with her anesthesia, which they felt that created longstanding confusion even post procedure. She was seen here at [facility] since that time on at least one or two occasions with episodes of cholangitis and known common bile duct stones. She was managed with antibiotics and was subsequently discharged. The patient was in her usual variable health until approximately 5:00 to 6:00 p.m. last night when she suddenly developed episodes of nausea, vomiting and abdominal pain. She also had chills and fevers. She presented to the emergency room where right upper quadrant ultrasound showed probable common bile duct stones, and the patient was admitted for ascending cholangitis. She was treated with antibiotics. She defervesced and is actuallyfeeling quite well, at this time, eating her diet without any difficulty. The patient had an magnetic resonance cholangiopancreatography (MRCP) performed, which shows moderate intrahepatic and extrahepatic biliary dilatation, common bile duct proximally has a maximum diameter of 16 mm common bile duct stone as well as other smaller stones more distally. The five more distal stones are also greater than 1 cm. There is moderate portal edema, moderate hepatosplenomegaly. There is an abdominal aortic aneurysm. I was asked to evaluate the patient for further evaluation via ERCP. PAST MEDICAL HISTORY: 1. Alzheimer's dementia, moderate to severe 2. Coronary artery disease. 3. Diabetes mellitus. 4. Hypothyroidism. 5. Choledocholithiasis (known to have incomplete treatment). 6. Post anesthesia altered mental status. SURGICAL HISTORY: Appendectomy. Biliary stent placement. ERCP times three. Cholecystectomy. Hysterectomy. SOCIAL HISTORY: Negative for tobacco, alcohol or other drugs. FAMILY HISTORY: Negative for colorectal carcinoma, inflammatory bowel disease. ALLERGIES: Are to ANGIOTENSIN-CONVERTING ENZYME (YURI) INHIBITORS. MEDICATIONS AT HOME: Cyanocobalamin, levothyroxine, magnesium gluconate, memantine, omeprazole, risperidone, sertraline, and Januvia. CURRENT MEDICATIONS: Insulin, acetaminophen, magnesium gluconate, Namenda, multivitamin, omeprazole, sertraline, aspirin, Nystatin by mouth, Zofran, levothyroxine, Zofran and risperidone. REVIEW OF SYSTEMS: Unobtainable in a reliable fashion. PHYSICAL EXAMINATION: Temperature 98.6, pulse 66, respiratory rate is 18, blood pressure 136/61, pulse oximetry 94% on room air. General: She is awake and alert; however, is not oriented to time. She is sitting comfortably in the chair without distress. Head, eyes, ears, nose and throat: Is noted for scleral icterus but no other abnormalities. Neck is supple. No lymphadenopathy or thyromegaly. Chest is coarse, distant breath sounds. No rhonchi or crackles. Heart is regular rate and rhythm, S1, S2. No murmurs. Abdomen is soft, obese, nontender. Good bowel sounds. No masses or organomegaly. Extremities: Positive for 1+ edema. LABORATORY DATA: WBC 4.9, hemoglobin 10.0, hematocrit 31.5, platelet count is 107. BUN 17, creatinine 1.48, total bilirubin 3.4, AST 81, ALT 62, alkaline phosphatase 136, albumin 2.4. IMAGING STUDIES: As reviewed in history of the present illness. IMPRESSION: 1. Persistent choledocholithiasis. 2. Ascending cholangitis. 3. Obstructive jaundice. 4. Probable portal hypertension with moderate hepatosplenomegaly and thrombocytopenia and a low albumin - probable hepatic dysfunction - compensated. 5. Moderate Alzheimer's dementia. RECOMMENDATIONS: 1. Continue broad-spectrum antibiotics for biliary coverage in face of recent ascending cholangitis. 2. Will proceed with ERCP as I discussed with her son. I also provided her and her son the alternatives to the ERCP, which would be percutaneous drainage of her bile duct, which her son clearly did not want to proceed with. TERRIE
[2018-10-31] MEDS: risperiDONE 1 MG TAB PO SCH (21:19)
[2018-10-31 22:00] VITALS: BP 144/74
[2018-11-01] VITALS (7 sets, daily range): BP systolic 132–168; BP diastolic 65–93
[2018-11-01] MEDS: NS 1,000 ML IV SCH ×4 (00:49→19:41)
[2018-11-01] MEDS: HEPARIN SOD (PORCINE) 5000 UNITS/ML VIAL SC SCH ×3 (05:22→22:00)
[2018-11-01] MEDS: PIPERACILLIN/TAZOBACTAM SOD 2.25 GM in D5W MINI-BAG PLUS 50 ML IV SCH ×4 (05:22→23:39)
[2018-11-01] MEDS: LEVOTHYROXINE 125MCG TABLET (0.125MG) PO SCH (05:22)
--- NOTE | 2018-11-01 05:46 | IPNPDOC ---
Text Note Date of Service The patient was seen on 10/31/18. NOTE Chief Complaint/HPI Pt was seen and examined at bedside. Pt is awake and alert, sitting in chair, pleasant lady with memory deficit at baseline. Denies any abdominal pain. Denies any jaundice. Denies any blood in the stool or hematemesis. General: Reports: Normal Appetite; Denies: Chills, Night Sweats, Fatigue, Malaise Constitutional: Denies: Chills, Fever, Night Sweats Eyes: Denies: Pain, Vision change ENT: Denies: Head Aches, Ear Pain, Dysphagia Skin: Denies: Rash, Lesions, Breakdown GI: as above CVS: denies CP , SOB Physical Examination General Exam: Positive: Alert, No Acute Distress Eye Exam: Positive: PERRLA, Conjunctiva & lids normal, EOMI; Negative: Sclera icteric ENT Exam: Positive: Atraumatic, Mucous membr. moist/pink, Pharynx Normal Neck Exam: Positive: Supple; Negative: JVD, thyromegaly Chest Exam: Positive: Clear to auscultation, Normal air movement Heart Exam: Positive: Rate Normal, Regular Rhythm, Normal S1, Normal S2; Negative: Murmurs, Rubs Abdomen Exam: Positive: Normal bowel sounds, Soft; Negative: Tenderness, Hepatospenomegaly Assessment Pt is 82 y/o F with Hx of alzheimer's disease, s/p cholecystectomy 2 years ago as per son, upon encounter to ED found to have elevated liver enzymes with CBD dilatation in U/S. Abdominal MRI completed on 10/30 confirmed multiple stones in distal of CBD. Pt clinically has improved, VS stable, will continue zosyn, monitor closely, monitor LFT, GI consult. Pt son reports today that pt underwent ERCP two times during the past two years first to place a stent and second to remove the stent. Spoke with Dr. Nuno from GI regarding current admission and findings in MRCP as well as Hx of ERCP. Dr. Nuno is recommending ERCP in AM. Continue close clinical monitoring, VS, antibiotics. Vital Signs Date Time Temp Pulse Resp B/P (MAP) Pulse Ox O2 Delivery O2 Flow Rate FiO2 10/31/18 22:00 97.6 69 17 144/74 (97) 97 10/31/18 14:00 98.6 66 18 136/61 (86) 94 10/31/18 06:00 98.0 66 18 142/60 (87) 94 Intake & Output 11/01/18 06:00 Intake Total 3904 ml Output Total 1800 ml Balance 2104 ml Laboratory Tests 10/31/18 05:49: White Blood Count 4.9, Red Blood Count 3.36L, Hemoglobin 10.0L, Hematocrit 31.5L, Mean Corpuscular Volume 93.8, Mean Corpuscular Hemoglobin 29.8, Mean Corpuscular Hemoglobin Concent 31.7L, Red Cell Distribution Width 16.1H, Platelet Count 107L, Neutrophils (%) (Auto) 74.7H, Lymphocytes (%) (Auto) 14.1L, Monocytes (%) (Auto) 6.3H, Eosinophils (%) (Auto) 4.1H, Basophils (%) (Auto) 0. 4, Neutrophils # (Auto) 3.7, Lymphocytes # (Auto) 0.7L, Monocytes # (Auto) 0.3, Eosinophils # (Auto) 0.2, Basophils # (Auto) 0.0, Immature Granulocyte % (Auto) 0.4, Nucleated Red Blood Cells % (auto) 0.0, Prothrombin Time 14.9H, Prothromb Time International Ratio 1.15, Blood Urea Nitrogen 17, Creatinine 1.48H, Sodium Level 139, Potassium Level 3.9, Chloride Level 112H, Carbon Dioxide Level 19L, Calcium Level 8.7L, Aspartate Amino Transf (AST/SGOT) 81H, Alanine Aminotransferase (ALT/SGPT) 62, Alkaline Phosphatase 136H, Total Bilirubin 3.4#H, Total Protein 5.7L, Albumin 2.4#L, Anion Gap 8, Glomerular Filtration Rate 35.9, Fasting Glucose 133H, Albumin/Globulin Ratio 0.73L 10/31/18 06:03: Bedside Glucose (Misc Panel) 139H 10/31/18 11:23: Bedside Glucose (Misc Panel) 135H 10/31/18 16:35: Bedside Glucose (Misc Panel) 124H 10/31/18 20:35: Bedside Glucose (Misc Panel) 128H 11/01/18 05:37: White Blood Count [Pending], Red Blood Count [Pending], Hemoglobin [Pending], Hematocrit [Pending], Mean Corpuscular Volume [Pending], Mean Corpuscular Hemoglobin [Pending], Mean Corpuscular Hemoglobin Concent [Pending], Red Cell Distribution Width [Pending], Platelet Count [Pending], Prothrombin Time [Pendi ng], Prothromb Time International Ratio [Pending], Blood Urea Nitrogen [Pending], Creatinine [Pending], Sodium Level [Pending], Potassium Level [Pending], Chloride Level [Pending], Carbon Dioxide Level [Pending], Calcium Level [Pending], Aspartate Amino Transf (AST/SGOT) [Pending], Alanine Aminotran sferase (ALT/SGPT) [Pending], Alkaline Phosphatase [Pending], Total Bilirubin [Pending], Total Protein [Pending], Albumin [Pending], Anion Gap [Pending], Fasting Glucose [Pending], Albumin/Globulin Ratio [Pending] Current Medications Medications (Trade) Dose Ordered Sig/Neelam Route PRN Reason Start Time Stop Time Status Last Admin Dose Admin Acetaminophen (Tylenol Tab) 650 mg Q4HP PRN PO PAIN OR FEVER 10/30/18 11:45 10/30/18 13:50 650 MG Aspirin (Ecotrin) 81 mg DAILY PO 10/30/18 09:00 10/31/18 08:01 81 MG Heparin Sodium (Porcine) (Heparin) 5,000 units Q8H SC 10/30/18 06:00 11/01/18 05:22 5,000 UNITS Insulin Human Lispro (HumaLOG INSULIN) SEE PROTOCOL TABLE AC MT 10/30/18 07:30 10/31/18 16:54 2 UNITS Levothyroxine Sodium (Synthroid) 125 mcg DAILY@0600 PO 10/30/18 06:00 11/01/18 05:22 125 MCG Magnesium Gluconate (Magnesium Gluconate) 500 mg DAILY PO 10/30/18 09:00 10/31/18 10:02 500 MG Memantine (Namenda) 10 mg DAILY PO 10/30/18 09:00 10/31/18 08:00 10 MG Multivitamins (Theragram-M) 1 tab DAILY PO 10/30/18 09:00 10/31/18 08:00 1 TAB Nystatin (Mycostatin Powder, Nystop) apply to abdominal folds ... BID TOP 10/30/18 09:00 10/31/18 21:19 1 DOSE Omeprazole (PriLOSEC) 20 mg BID PO 10/30/18 09:00 10/31/18 21:19 20 MG Piperacillin Sod/ Tazobactam Sod 2.25 gm/Dextrose 50 ml @ 100 mls/hr Q6H IV 10/30/18 06:00 11/01/18 05:22 100 MLS/HR Risperidone (RisperDAL) 1 mg QHS PO 10/29/18 21:00 10/31/18 21:19 1 MG Sertraline HCl (Zoloft) 50 mg DAILY PO 10/30/18 09:00 10/31/18 08:01 50 MG Sodium Chloride 1,000 ml @ 150 mls/hr Q6H40M IV 10/30/18 05:45 11/01/18 00:49 150 MLS/HR VS,Fishbone, I+O VS, Fishbone, I+O Laboratory Tests 10/31/18 05:49 Red Blood Count 3.36 L, Mean Corpuscular Volume 93.8, Mean Corpuscular Hemoglobin 29.8, Mean Corpuscular Hemoglobin Concent 31.7 L, Red Cell Distribution Width 16.1 H, Neutrophils (%) (Auto) 74.7 H, Lymphocytes (%) (Auto) 14.1 L, Monocytes (%) (Auto) 6.3 H, Eosinophils (%) (Auto) 4.1 H, Basophils (%) (Auto) 0.4, Neutrophils # (Auto) 3.7, Lymphocytes # (Auto) 0.7 L, Monocytes # (Auto) 0.3, Eosinophils # (Auto) 0.2, Basophils # (Auto) 0.0, Calcium Level 8.7 L, Aspartate Amino Transf (AST/SGOT) 81 H, Alanine Aminotransferase (ALT/SGPT) 62, Alkaline Phosphatase 136 H, Total Bilirubin 3.4 #H, Total Protein 5.7 L, Albumin 2.4 #L Vital Signs Date Time Temp Pulse Resp B/P (MAP) Pulse Ox O2 Delivery O2 Flow Rate FiO2 10/31/18 22:00 97.6 69 17 144/74 (97) 97 10/30/18 03:35 Room Air I&O- Last 24 Hours up to 6 AM 11/01/18 06:00 Intake Total 3904 ml Output Total 1800 ml Balance 2104 ml BOBBI GRAFMEH MD Nov 01, 2018 05:46
[2018-11-01 05:52] LABS: BASO % 0.6 % (0.0-1.0); EOS # 0.2 10^3/uL (0.0-0.50); EOS % 4.5 % (0.0-3.0); HEMATOCRIT 32.3 % (36.0-47.0); HEMOGLOBIN 10.5 g/dl (12.0-15.5); LYMPH # 0.8 10^3/uL (1.5-4.5); LYMPH % 18.1 % (24.0-44.0); MEAN CORPUSCULAR HEMOGLOBIN 30.3 pg (27.0-33.0); MEAN CORPUSCULAR HGB CONC 32.5 g/dl (32.0-36.5); MEAN CORPUSCULAR VOLUME 93.4 fl (80.0-96.0); MONO # 0.2 10^3/uL (0.0-0.8); MONO % 4.7 % (0.0-5.0); NEUTROPHILS # 3.3 10^3/uL (1.8-7.7); NEUTROPHILS % 71.5 % (36.0-66.0); PLATELET COUNT, AUTOMATED 130 10^3/uL (150-450); RED BLOOD COUNT 3.46 10^6/uL (4.00-5.40); WHITE BLOOD COUNT 4.7 10^3/uL (4.0-10.0)
[2018-11-01 06:01] LABS: INR 1.02; PROTHROMBIN TIME 13.5 SECONDS (12.1-14.4)
[2018-11-01 06:15] LABS: ALBUMIN 2.5 GM/DL (3.2-5.2); BILIRUBIN,TOTAL 3.1 MG/DL (0.2-1.0); CALCIUM LEVEL 8.9 MG/DL (8.8-10.2); CREATININE FOR GFR 1.42 MG/DL (0.55-1.30); GLOMERULAR FILTRATION RATE 37.6 (>32); POTASSIUM SERUM 3.9 MEQ/L (3.5-5.1)
[2018-11-01] MEDS: HumaLOG INSULIN (NovoLOG) PER UNIT SC SCH ×4 (07:58→21:00)
[2018-11-01] MEDS: MAGNESIUM GLUCONATE 500 MG TAB PO SCH (07:59)
[2018-11-01] MEDS: SERTRALINE HCL 50 MG TAB PO SCH (08:00)
[2018-11-01] MEDS: MEMANTINE 5MG TABLET (NAMENDA) PO SCH (08:00)
[2018-11-01] MEDS: MULTIVITAMINS/MINERALS THERAP 1 TAB PO SCH (08:00)
[2018-11-01] MEDS: OMEPRAZOLE 20 MG CAP PO SCH ×2 (08:00→22:00)
[2018-11-01] MEDS: NYSTATIN 100,000 UNITS/GM TOPICAL PWD 15 GM TOP SCH ×2 (08:01→22:01)
[2018-11-01] MEDS: ASPIRIN 81 MG ENTERIC TAB PO SCH (08:01)
[2018-11-01] MEDS ORDERED: dexameTHASONE 4 MG/ML 1ML VIAL (J1100) As Ordered ONE (14:36)
[2018-11-01] MEDS ORDERED: ROCURONIUM BROMIDE 50 MG/5 ML VIAL As Ordered ONE (14:36)
[2018-11-01] MEDS ORDERED: ONDANSETRON 4MG/2ML VIAL (J2405) As Ordered ONE (14:36)
[2018-11-01] MEDS ORDERED: PROPOFOL 200 MG/20 ML VIAL As Ordered ONE (14:36)
[2018-11-01] MEDS ORDERED: LIDOCAINE 2% INJ 100 MG/5 ML SDV (FOR ANES.) As Ordered ONE (14:36)
[2018-11-01] MEDS ORDERED: fentaNYL 100 MCG/2 ML INJECTION (J3010) As Ordered ONE (14:37)
[2018-11-01] MEDS ORDERED: MIDAZOLAM INJ 2 MG/2 ML VIAL (J2250) As Ordered ONE (14:38)
[2018-11-01] MEDS ORDERED: ISOVUE-300 61% 50ML VIAL (Q9967) As Ordered ONE (14:55)
[2018-11-01] MEDS ORDERED: PROPOFOL 500 MG/50 ML VIAL As Ordered ONE ×2 (15:50→16:14)
[2018-11-01] MEDS ORDERED: ePHEDrine SULFATE 25 MG/5 ML(5MG/ML) SYRINGE As Ordered ONE (16:45)
[2018-11-01] MEDS ORDERED: PHENYLephrine HCL 500 MCG/5 ML (100MCG/ML) SYRINGE (J2370) As Ordered ONE (16:45)
[2018-11-01] MEDS ORDERED: SUGAMMADEX SODIUM 500 MG/5 ML VIAL (BRIDION) As Ordered ONE (17:12)
--- NOTE | 2018-11-01 17:30 | ROOR ---
Patient Name: Mansi Hitchcock Procedure Date: 11/01/2018 4:12 PM Date of : 1935 Age: 82 Room: Main OR Gender: Female Note Status: Finalized Procedure: ERCP Indications: Evaluation and possible treatment of bile duct stone(s), Follow-up of ascending cholangitis Providers: Nakul TYLER MD Referring MD: 2. Inpatient 2. Inpatient, Marsha BLANTON DO Requesting Provider: Medicines: Monitored Anesthesia Care, Propofol per Anesthesia Complications: No immediate complications. Procedure: Pre-Anesthesia Assessment: - The heart rate, respiratory rate, oxygen saturations, blood pressure, adequacy of pulmonary ventilation, and response to care were monitored throughout the procedure. The Duodenoscope was introduced through the mouth, and advanced to the duodenum and used to inject contrast into the bile duct. The ERCP was accomplished without difficulty. The patient tolerated the procedure well. Findings: The alliance director film was normal. The esophagus was successfully intubated under direct vision without detailed examination of the pharynx, larynx, and associated structures, and upper GI tract. The upper GI tract was grossly normal. The major papilla was located partially within a diverticulum. There was a gaping orifice at the major papilla. A straight Roadrunner wire was passed into the biliary tree. The bile duct was then deeply cannulated over the guidewire. Contrast was injected. I personally interpreted the bile duct images. Ductal flow of contrast was adequate. Image quality was adequate. Contrast extended to the main bile duct. Opacification of the main bile duct was successful. The maximum diameter of the ducts was 15 mm. The main bile duct contained multiple stones, the largest of which was 15 mm in diameter. The in the biliary system was diffusely dilated. Lithotripsy with a basket-type device was successful. The biliary tree was swept with a 15 mm balloon starting at the bifurcation. Debris was swept from the duct. Sludge was swept from the duct. One 10 Fr by 7 cm temporary plastic biliary stent with two external flaps and two internal flaps was placed into the common bile duct. Bile, clear fluid and sludge flowed through the stent. The stent was in good position. Impression: - The major papilla was located partially within a diverticulum with a gaping orifice/previous sphincterotomy. - The biliary system was dilated. - Choledocholithiasis/multiple (10 to 15 mm stones) were found.- Lithotripsy was only partially successful. Lithotripsy did not remove all stones. - The biliary tree was swept and debris and sludge were found. Several large stones remain in the bile duct. - One temporary plastic biliary stent was placed into the common bile duct. Recommendation: - Use Actigall (ursodiol) 600 mg PO BID for 4 months. - Repeat ERCP in 3 months to exchange stent. - Replace stent if signs or symptoms of stent occlusion occur. - The findings and recommendations were discussed with the patient's family. - Nando Naldo: Per our discussion, you and your mother are moving out of state shortly. The stent I placed today MUST be removed or exchanged in 3 months (or it will track in a major infection). Please make sure you set up an appointment with a new Automatic Washer Mechanic (with training in ERCP procedure) in your new location as soon as possible, so that plans can be made. Nakul Tyler MD Nakul TYLER MD 11/01/2018 5:30:12 PM Electronically signed by Nakul TYLER MD Number of Addenda: 0 Note Initiated On: 11/01/2018 4:12 PM Estimated Blood Loss: Estimated blood loss: none.
[2018-11-01] MEDS ORDERED: LR 1,000 ML IV SCH (17:45)
[2018-11-01] MEDS ORDERED: fentaNYL 100 MCG/2 ML INJECTION (J3010) IV PRN (17:45)
[2018-11-01] MEDS ORDERED: PROMETHAZINE INJ 25 MG/ML VIAL (J2550) IV PRN (17:45)
[2018-11-01] MEDS ORDERED: METOCLOPRAMIDE INJ 10MG/2ML VIAL (J2765) IV PRN (17:45)
[2018-11-01] MEDS ORDERED: METOCLOPRAMIDE INJ 10MG/2ML VIAL (J2765) As Ordered ONE (17:49)
[2018-11-01] MEDS: URSODIOL 300 MG CAP PO SCH (22:00)
[2018-11-01] MEDS: risperiDONE 1 MG TAB PO SCH (22:00)
--- NOTE | 2018-11-01 23:28 | IPNPDOC ---
Text Note Date of Service The patient was seen on 11/01/18. NOTE Pt was seen and examined at bedside. Pt is getting transferred to undergo ERCP by Dr. Nuno. Subjective: General: Reports: Normal Appetite; Denies: Chills, Night Sweats, Fatigue, Malaise Constitutional: Denies: Chills, Fever, Night Sweats Eyes: Denies: Pain, Vision change ENT: Denies: Head Aches, Ear Pain, Dysphagia Skin: Denies: Rash, Lesions, Breakdown GI: as above CVS: denies CP , SOB Physical Examination General Exam: Positive: Alert, No Acute Distress Eye Exam: Positive: PERRLA, Conjunctiva & lids normal, EOMI; Negative: Sclera icteric ENT Exam: Positive: Atraumatic, Mucous membr. moist/pink, Pharynx Normal Neck Exam: Positive: Supple; Negative: JVD, thyromegaly Chest Exam: Positive: Clear to auscultation, Normal air movement Heart Exam: Positive: Rate Normal, Regular Rhythm, Normal S1, Normal S2; Negative: Murmurs, Rubs Abdomen Exam: Positive: Normal bowel sounds, Soft; Negative: Tenderness, Hepatospenomegaly Vital Signs Date Time Temp Pulse Resp B/P (MAP) Pulse Ox O2 Delivery O2 Flow Rate FiO2 11/02/18 02:00 97.4 52 19 168/88 (114) 97 11/01/18 22:00 97.1 63 19 151/69 (96) 96 11/01/18 21:00 97.1 62 18 168/93 (118) 97 11/01/18 20:00 97.2 62 19 144/68 (93) 95 11/01/18 18:40 97.4 59 19 159/87 (111) 94 11/01/18 18:25 97.6 58 20 148/72 (97) 94 11/01/18 18:05 58 18 166/70 (102) 94 11/01/18 18:00 58 16 148/63 (91) 94 11/01/18 17:55 60 16 168/71 (103) 94 11/01/18 17:50 59 16 158/72 (100) 93 11/01/18 17:45 97.2 61 18 143/78 (99) 95 11/01/18 17:40 60 16 164/73 (103) 94 11/01/18 17:35 62 16 167/67 (100) 97 1 11/01/18 17:30 97.3 62 18 175/74 (107) 96 1 11/01/18 17:25 62 18 158/70 (99) 96 1 11/01/18 17:20 63 14 161/70 (100) 96 2 11/01/18 17:18 62 14 167/72 (103) 97 2 11/01/18 17:15 97.7 66 14 175/72 (106) 96 2 11/01/18 14:00 97.5 59 17 135/65 (88) 97 11/01/18 06:00 98.2 71 16 132/66 (88) 97 Intake & Output 11/02/18 05:59 Intake Total 1815 ml Output Total 2025 ml Balance -210 ml Laboratory Tests 11/01/18 05:37: White Blood Count 4.7, Red Blood Count 3.46L, Hemoglobin 10.5L, Hematocrit 32.3L, Mean Corpuscular Volume 93.4, Mean Corpuscular Hemoglobin 30.3, Mean Corpuscular Hemoglobin Concent 32.5, Red Cell Distribution Width 16.1H, Platelet Count 130L, Neutrophils (%) (Auto) 71.5H, Lymphocytes (%) (Auto) 18.1L, Monocytes (%) (Auto) 4.7, Eosinophils (%) (Auto) 4.5H, Basophils (%) (Auto) 0.6, Neutrophils # (Auto) 3.3, Lymphocytes # (Auto) 0.8L, Monocytes # (Auto) 0.2, Eosinophils # (Auto) 0.2, Basophils # (Auto) 0.0, Immature Granulocyte % (Auto) 0.6, Nucleated Red Blood Cells % (auto) 0.0, Prothrombin Time 13.5, Prothromb Time International Ratio 1.02, Blood Urea Nitrogen 13, Creatinine 1.42H, Sodium Level 142, Potassium Level 3.9, Chloride Level 113H, Carbon Dioxide Level 22, Calcium Level 8.9, Aspartate Amino Transf (AST/SGOT) 71H, Alanine A minotransferase (ALT/SGPT) 52, Alkaline Phosphatase 174H, Total Bilirubin 3.1H, Total Protein 6.0L, Albumin 2.5L, Anion Gap 7L, Glomerular Filtration Rate 37.6, Fasting Glucose 126H, Albumin/Globulin Ratio 0.71L 11/01/18 06:11: Bedside Glucose (Misc Panel) 138H 11/01/18 11:37: Bedside Glucose (Misc Panel) 110 11/01/18 18:41: Bedside Glucose (Misc Panel) 133H 11/01/18 19:47: Bedside Glucose (Misc Panel) 190H Current Medications Medications (Trade) Dose Ordered Sig/Neelam Route PRN Reason Start Time Stop Time Status Last Admin Dose Admin Acetaminophen (Tylenol Tab) 650 mg Q4HP PRN PO PAIN OR FEVER 10/30/18 11:45 10/30/18 13:50 650 MG Aspirin (Ecotrin) 81 mg DAILY PO 10/30/18 09:00 11/01/18 08:01 81 MG Heparin Sodium (Porcine) (Heparin) 5,000 units Q8H SC 10/30/18 06:00 11/01/18 22:00 5,000 UNITS Insulin Human Lispro (HumaLOG INSULIN) SEE PROTOCOL TABLE AC SC 10/30/18 07:30 11/01/18 18:46 2 UNITS Levothyroxine Sodium (Synthroid) 125 mcg DAILY@0600 PO 10/30/18 06:00 11/01/18 05:22 125 MCG Magnesium Gluconate (Magnesium Gluconate) 500 mg DAILY PO 10/30/18 09:00 11/01/18 07:59 500 MG Memantine (Namenda) 10 mg DAILY PO 10/30/18 09:00 11/01/18 08:00 10 MG Multivitamins (Theragram-M) 1 tab DAILY PO 10/30/18 09:00 11/01/18 08:00 1 TAB Nystatin (Mycostatin Powder, Nystop) apply to abdominal folds ... BID TOP 10/30/18 09:00 11/01/18 22:01 1 DOSE Omeprazole (PriLOSEC) 20 mg BID PO 10/30/18 09:00 11/01/18 22:00 20 MG Piperacillin Sod/ Tazobactam Sod 2.25 gm/Dextrose 50 ml @ 100 mls/hr Q6H IV 10/30/18 06:00 11/01/18 23:39 100 MLS/HR Risperidone (RisperDAL) 1 mg QHS PO 10/29/18 21:00 11/01/18 22:00 1 MG Sertraline HCl (Zoloft) 50 mg DAILY PO 10/30/18 09:00 11/01/18 08:00 50 MG Sodium Chloride 1,000 ml @ 150 mls/hr Q6H40M IV 10/30/18 05:45 11/01/18 19:41 150 MLS/HR Ursodiol (Actigall) 600 mg BID PO 11/01/18 21:00 11/01/18 22:00 600 MG Assessment Pt is 82 y/o F with Hx of alzheimer's disease, s/p cholecystectomy 2 years ago as per son, upon encounter to ED found to have elevated liver enzymes with CBD dilatation in U/S. Abdominal MRI completed on 10/30 confirmed multiple stones in distal of CBD. Pt clinically has improved, VS stable, will continue zosyn, monitor closely, monitor LFT, GI consult. Pt son reported that she underwent ERCP two times during the past two years first to place a stent and second to remove the stent. Spoke with Dr. Nuno from GI regarding current admission and findings in MRCP as well as Hx of ERCP. Continue close clinical monitoring, VS, antibiotics. VS,Fishbone, I+O VS, Fishbone, I+O Laboratory Tests 11/01/18 05:37 Red Blood Count 3.46 L, Mean Corpuscular Volume 93.4, Mean Corpuscular He moglobin 30.3, Mean Corpuscular Hemoglobin Concent 32.5, Red Cell Distribution Width 16.1 H, Neutrophils (%) (Auto) 71.5 H, Lymphocytes (%) (Auto) 18.1 L, Monocytes (%) (Auto) 4.7, Eosinophils (%) (Auto) 4.5 H, Basophils (%) (Auto) 0.6, Neutrophils # (Auto) 3.3, Lymphocytes # (Auto) 0.8 L, Monocytes # (Auto) 0.2, Eosinophils # (Auto) 0.2, Basophils # (Auto) 0.0, Calcium Level 8.9, Aspartate Amino Transf (AST/SGOT) 71 H, Alanine Aminotransferase (ALT/SGPT) 52, Alkaline Phosphatase 174 H, Total Bilirubin 3.1 H, Total Protein 6.0 L, Albumin 2.5 L Vital Signs Date Time Temp Pulse Resp B/P (MAP) Pulse Ox O2 Delivery O2 Flow Rate FiO2 6/7/19 22:00 97.1 63 19 151/69 (96) 96 11/01/18 17:35 1 10/30/18 03:35 Room Air I&O- Last 24 Hours up to 6 AM 11/01/18 06:00 Intake Total 3954 ml Output Total 2000 ml Balance 1954 ml JASMIN GRAF MD Nov 01, 2018 23:28
[2018-11-02] VITALS (8 sets, daily range): BP systolic 138–190; BP diastolic 58–88
[2018-11-02] MEDS: NS 1,000 ML IV SCH ×2 (03:02→21:48)
[2018-11-02] MEDS ORDERED: amLODIPine 5 MG TAB PO ONE (05:30)
[2018-11-02] MEDS: PIPERACILLIN/TAZOBACTAM SOD 2.25 GM in D5W MINI-BAG PLUS 50 ML IV SCH ×4 (05:33→23:56)
[2018-11-02] MEDS: HEPARIN SOD (PORCINE) 5000 UNITS/ML VIAL SC SCH ×3 (05:33→21:46)
[2018-11-02] MEDS: LEVOTHYROXINE 125MCG TABLET (0.125MG) PO SCH (05:33)
--- NOTE | 2018-11-02 07:46 | REP ---
C-ARM VIEWS DURING ERCP: Multiple C-Arm views are performed during ERCP exam. Contrast is injected showing multiple stones in the common bile duct as seen on recent MRCP 10/30/2018. Catheter manipulation is performed. A stent is placed in the common bile duct. 8 minutes 56 seconds fluoroscopy time utilized. Electronically Signed by Gildardo Barron MD 11/05/2018 09:56 A
[2018-11-02] MEDS: SERTRALINE HCL 50 MG TAB PO SCH (08:48)
[2018-11-02] MEDS: MULTIVITAMINS/MINERALS THERAP 1 TAB PO SCH (08:48)
[2018-11-02] MEDS: URSODIOL 300 MG CAP PO SCH ×2 (08:48→21:46)
[2018-11-02] MEDS: OMEPRAZOLE 20 MG CAP PO SCH ×2 (08:48→21:46)
[2018-11-02] MEDS: ASPIRIN 81 MG ENTERIC TAB PO SCH (08:48)
[2018-11-02] MEDS: HumaLOG INSULIN (NovoLOG) PER UNIT SC SCH ×4 (08:48→21:00)
[2018-11-02] MEDS: MEMANTINE 5MG TABLET (NAMENDA) PO SCH (08:48)
[2018-11-02] MEDS: MAGNESIUM GLUCONATE 500 MG TAB PO SCH (08:48)
[2018-11-02] MEDS: NYSTATIN 100,000 UNITS/GM TOPICAL PWD 15 GM TOP SCH ×2 (08:49→21:46)
--- NOTE | 2018-11-02 17:38 | IPNPDOC ---
Text Note Date of Service The patient was seen on 11/02/18. NOTE Pt was seen and examined at bedside. S/P ERCP with stent placement. Pt complains of abdominal pain today. Pt started having abdominal pain early in the morning which was mild to moderate in all quadrants. It progressively worsened during the day. Upon my encounter pt had facial flushing with severe diffuse abdominal pain. No N/V, No hematemesis or blood in the stool. Pt had higher Temp than her baseline. In view of recent ERCP procedure, stat abdominal CT requested along with stat amylase lipase, cbc and cmp. Pending result. Pt is hemodynamically stable at this moment, no guarding or rebound tenderness was appreciated in abdomen exam. GI attending on the case was notified. Subjective: General: Reports: Normal Appetite; Denies: Chills, Night Sweats, Fatigue, Malaise Constitutional: Denies: Chills, Fever, Night Sweats Eyes: Denies: Pain, Vision change ENT: Denies: Head Aches, Ear Pain, Dysphagia Skin: Denies: Rash, Lesions, Breakdown GI: as above CVS: denies CP , SOB, palpitations Physical Examination General Exam: Positive: Alert, moderate Distress Eye Exam: Positive: PERRLA, Conjunctiva & lids normal, EOMI; Negative: Sclera icteric ENT Exam: Positive: Atraumatic, Mucous membr. moist/pink, Pharynx Normal Neck Exam: Positive: Supple; Negative: JVD, thyromegaly Chest Exam: Positive: Clear to auscultation, Normal air movement Heart Exam: Positive: Rate Normal, Regular Rhythm, Normal S1, Normal S2; Negative: Murmurs, Rubs Abdomen Exam: Abdomen is soft , no rebound tenderness or guarding. No ascites. Vital Signs Date Time Temp Pulse Resp B/P (MAP) Pulse Ox O2 Delivery O2 Flow Rate FiO2 11/02/18 14:00 99.6 78 18 138/78 (98) 98 11/02/18 10:00 98.3 59 18 170/58 (95) 97 11/02/18 06:30 186/74 (111) 11/02/18 06:00 97.3 60 18 190/84 (119) 97 11/02/18 05:33 190/82 11/02/18 05:25 190/84 (119) 11/02/18 02:00 97.4 52 19 168/88 (114) 97 11/01/18 22:00 97.1 63 19 151/69 (96) 96 11/01/18 21:00 97.1 62 18 168/93 (118) 97 11/01/18 20:00 97.2 62 19 144/68 (93) 95 11/01/18 18:40 97.4 59 19 159/87 (111) 94 11/01/18 18:25 97.6 58 20 148/72 (97) 94 11/01/18 18:05 58 18 166/70 (102) 94 11/01/18 18:00 58 16 148/63 (91) 94 11/01/18 17:55 60 16 168/71 (103) 94 11/01/18 17:50 59 16 158/72 (100) 93 11/01/18 17:45 97.2 61 18 143/78 (99) 95 11/01/18 17:40 60 16 164/73 (103) 94 Intake & Output 11/02/18 06:00 Intake Total 2515 ml Output Total 2000 ml Balance 515 ml Laboratory Tests 11/01/18 18:41: Bedside Glucose (Misc Panel) 133H 11/01/18 19:47: Bedside Glucose (Misc Panel) 190H 11/02/18 05:20: Bedside Glucose (Misc Panel) 200H 11/02/18 11:33: Bedside Glucose (Misc Panel) 120H 11/02/18 16:06: Bedside Glucose (Misc Panel) 166H Current Medications Medications (Trade) Dose Ordered Sig/Neelam Route PRN Reason Start Time Stop Time Status Last Admin Dose Admin Acetaminophen (Tylenol Tab) 650 mg Q4HP PRN PO PAIN OR FEVER 10/30/18 11:45 10/30/18 13:50 650 MG Aspirin (Ecotrin) 81 mg DAILY PO 10/30/18 09:00 11/02/18 08:48 81 MG Heparin Sodium (Porcine) (Heparin) 5,000 units Q8H SC 10/30/18 06:00 11/02/18 13:04 5,000 UNITS Insulin Human Lispro (HumaLOG INSULIN) SEE PROTOCOL TABLE AC SC 10/30/18 07:30 11/02/18 13:05 2 UNITS Levothyroxine Sodium (Synthroid) 125 mcg DAILY@0600 PO 10/30/18 06:00 11/02/18 05:33 125 MCG Magnesium Gluconate (Magnesium Gluconate) 500 mg DAILY PO 10/30/18 09:00 11/02/18 08:48 500 MG Memantine (Namenda) 10 mg DAILY PO 10/30/18 09:00 11/02/18 08:48 10 MG Multivitamins (Theragram-M) 1 tab DAILY PO 10/30/18 09:00 11/02/18 08:48 1 TAB Nystatin (Mycostatin Powder, Nystop) apply to abdominal folds ... BID TOP 10/30/18 09:00 11/02/18 08:49 1 DOSE Omeprazole (PriLOSEC) 20 mg BID PO 10/30/18 09:00 11/02/18 08:48 20 MG Piperacillin Sod/ Tazobactam Sod 2.25 gm/Dextrose 50 ml @ 100 mls/hr Q6H IV 10/30/18 06:00 11/02/18 13:04 100 MLS/HR Risperidone (RisperDAL) 1 mg QHS PO 10/29/18 21:00 11/01/18 22:00 1 MG Sertraline HCl (Zoloft) 50 mg DAILY PO 10/30/18 09:00 11/02/18 08:48 50 MG Ursodiol (Actigall) 600 mg BID PO 11/01/18 21:00 11/02/18 08:48 600 MG Assessment Pt is 82 y/o F with Hx of alzheimer's disease, s/p cholecystectomy 2 years ago as per son, upon encounter to ED found to have elevated liver enzymes with CBD dilatation in U/S. Abdominal MRI completed on 10/30 confirmed multiple stones in distal of CBD. On 10/31/18 Pt son reported that she underwent ERCP two times during the past two years first to place a stent and second to remove the stent. Spoke with Dr. Nuno from GI regarding current admission and findings in MRCP as well as Hx of ERCP. On 11/01/18 pt underwent ERCP with stent placement. 1-Ascending cholangitis: secondary to choledocholithiasis confirmed in abdomen MRCP, elevated liver enzymes and hyperbilirubinemia. Pt on broad spectrum Abx. Close clinical monitoring. serial CMP, CBC. IVF resuscitation. 2-S/P ERCP lithotripsy, balloon sweep and common bile duct stent placement : GI on board for further management. 3-Ruling out pancreatitis AMylase, Lipase in AM Cont Zosyn VS q4hr Cont IVF NS NPO except meds ABdomen CT stat appreciated. GI recommendations appreciated. VS,Fishbone, I+O VS, Fishbone, I+O Vital Signs Date Time Temp Pulse Resp B/P (MAP) Pulse Ox O2 Delivery O2 Flow Rate FiO2 11/02/18 14:00 99.6 78 18 138/78 (98) 98 11/01/18 17:35 1 10/30/18 03:35 Room Air I&O- Last 24 Hours up to 6 AM 11/02/18 06:00 Intake Total 2515 ml Output Total 2000 ml Balance 515 ml JASMIN GRAF MD Nov 02, 2018 17:38
[2018-11-02] MEDS ORDERED: KETOROLAC 30 MG/ML VIAL (J1885) IV ONE (18:15)
--- NOTE | 2018-11-02 19:08 | IPNPDOC ---
Text Note Date of Service The patient was seen on 11/02/18. VS,Fishbone, I+O VS, Fishbone, I+O Vital Signs Date Time Temp Pulse Resp B/P (MAP) Pulse Ox O2 Delivery O2 Flow Rate FiO2 11/02/18 18:00 100.5 65 18 138/62 (87) 97 11/01/18 17:35 1 10/30/18 03:35 Room Air I&O- Last 24 Hours up to 6 AM 11/02/18 06:00 Intake Total 2515 ml Output Total 2000 ml Balance 515 ml JASMIN GRAF MD Nov 02, 2018 19:08
[2018-11-02 19:12] LABS: BASO % 0.2 % (0.0-1.0); EOS % 0.2 % (0.0-3.0); HEMATOCRIT 33.3 % (36.0-47.0); HEMOGLOBIN 11.1 g/dl (12.0-15.5); LYMPH # 0.7 10^3/uL (1.5-4.5); LYMPH % 12.1 % (24.0-44.0); MEAN CORPUSCULAR HEMOGLOBIN 30.4 pg (27.0-33.0); MEAN CORPUSCULAR HGB CONC 33.3 g/dl (32.0-36.5); MEAN CORPUSCULAR VOLUME 91.2 fl (80.0-96.0); MONO # 0.3 10^3/uL (0.0-0.8); MONO % 5.5 % (0.0-5.0); NEUTROPHILS # 4.8 10^3/uL (1.8-7.7); NEUTROPHILS % 81.7 % (36.0-66.0); PLATELET COUNT, AUTOMATED 150 10^3/uL (150-450); RED BLOOD COUNT 3.65 10^6/uL (4.00-5.40); WHITE BLOOD COUNT 5.9 10^3/uL (4.0-10.0)
[2018-11-02 19:31] LABS: ALBUMIN 2.5 GM/DL (3.2-5.2); BILIRUBIN,TOTAL 2.8 MG/DL (0.2-1.0); CALCIUM LEVEL 8.6 MG/DL (8.8-10.2); CREATININE FOR GFR 1.34 MG/DL (0.55-1.30); GLOMERULAR FILTRATION RATE 40.2 (>32); POTASSIUM SERUM 3.3 MEQ/L (3.5-5.1); TOTAL PROTEIN 5.6 GM/DL (6.4-8.2)
--- NOTE | 2018-11-02 19:48 | REPVR ---
EXAM: CT Abdomen and Pelvis Without Contrast EXAM DATE/TIME: 11/02/2018 6:21 PM CLINICAL HISTORY: 82 years old, female; Abdominal pain; Acute; Prior surgery; Surgery date: Post-operative (0-2 days); Surgery type: Ercp; Additional info: Acute abdomen pain S/P ercp TECHNIQUE: Imaging protocol: Axial computed tomography images of the abdomen and pelvis without contrast. Coronal and sagittal reformatted images were created and reviewed. Radiation optimization: All CT scans at this facility use at least one of these dose optimization techniques: automated exposure control; mA and/or kV adjustment per patient size (includes targeted exams where dose is matched to clinical indication); or iterative reconstruction. COMPARISON: CT ABD/PEL W/PO CONTRAST ONLY 09/26/2017 4:01 PM FINDINGS: Lungs: Subpleural atelectasis noted in the dependent portion of the left lung base and within the lingula. Pleural space: There are small bilateral pleural effusions. ABDOMEN: Liver: Liver is low in density indicating underlying hepatic steatosis. Nodular liver contour. Gallbladder and bile ducts: There is pneumobilia. Biliary stent noted within the region of the common bile duct down to the level of the ampulla. Gallbladder is absent. Pancreas: There is air within or adjacent to the pancreatic head inferiorly (series [id number] image [id number]). Spleen: Spleen measures 15 cm in craniocaudal span. Adrenals: Normal. No mass. Kidneys and ureters: There is bilateral renal cortical atrophy. 2.4 cm low-density lesion in the midportion of the left kidney. No hydronephrosis Stomach and bowel: Inflammatory changes noted surrounding the inferior aspect of the gastric antrum and the first and second portions of the duodenum. Appendix: Not seen as a separate structure. PELVIS: Bladder: Unremarkable as visualized. Reproductive: Unremarkable as visualized. ABDOMEN and PELVIS: Intraperitoneal space: Small to moderate amount of ascites in the pelvis. Small amount of perisplenic ascites. Bones/joints: Spinal fixation hardware noted posteriorly at L4 and L5. Soft tissues: Anasarca. Vasculature: Normal. No abdominal aortic aneurysm. Lymph nodes: Normal. No enlarged lymph nodes. IMPRESSION: 1. Inflammatory changes noted at the level the pancreatic head, gastric antrum and first and second portions of the duodenum. Pancreatitis should be considered. 2. Small amount of extraluminal air are noted along the inferior aspect of the pancreatic head and medial to the second portion of the duodenum 3. Small to moderate amount of ascites. 4. Hepatic steatosis. Nodular liver contour suggests cirrhosis. 5. Bilateral renal cortical atrophy. 6. Small bilateral pleural effusions. COMMENT: Consistent with the [employer]'s Incidental Findings Committee Report (J [employer] Mee Radiol 2010): Unless the patient's specific circumstances suggest otherwise, any liver lesion 0.5 cm or less, any cystic kidney lesion less than 1.0 cm, and/or any adrenal lesion 1.0 cm or less not otherwise characterized in this report as possessing suspicious or indeterminate imaging features is/are highly likely to be benign and do not require follow-up imaging or biopsy. Electronically signed by: Lashonda Alvarez On 11/02/2018 19:48:33 PM
[2018-11-02] MEDS: risperiDONE 1 MG TAB PO SCH (21:46)
[2018-11-02] MEDS: ACETAMINOPHEN TAB 650MG DOSE (2X325MG) PO PRN (21:47)
--- NOTE | 2018-11-02 23:49 | IPN ---
DATE: 10/30/2018 The patient at present is postoperative day #1 status post endoscopic retrograde cholangiopancreatography (ERCP) lithotripsy, balloon sweep and common bile duct stent placement. The patient this evening started complaining of some abdominal pain and had a low-grade temperature. The abdominal pain has worsened since earlier today. Therefore stat CT scan of the abdomen and pelvis was performed. The CT scan showed some inflammatory changes at the level of the pancreatic head, gastric antrum and first and second portions of the duodenum. Pancreatitis should be considered. There was also a small amount of extraluminal air along the inferior aspect of the pancreatic head and medial to the second portion of the duodenum. Small amount to moderate amount of ascites was seen. Nodular liver, hepatosteatosis, small bilateral pleural effusions. Temperature maximum (T-max) 99.6/100.5 at present, heart rate is 65, respiratory rate is 18, blood pressure is 138/62. General: She is awake and alert. She is slightly flushed but otherwise appears relatively nontoxic. Head, eyes, ears, nose and throat: Is grossly without abnormality. Chest is clear bilaterally. Heart is regular rate and rhythm, S1, S2. No murmurs. Abdomen is soft, moderately tender to light palpation. There is some mild rebound tenderness. The patient is obese. I do not definitely appreciate ascites on this physical examination. Extremities: Negative for edema. Intake and output (I/O) from yesterday are 2475/2275. Today's intake and output (I/O) are 1310 over 825. White blood cell (WBC) 4.7/5.9, hemoglobin 10.5/11.1, platelet count is 130/150, bilirubin 3.2/2.8, AST 71/63, ALT 52/45, alkaline phosphatase 174/183. BUN 11, creatinine 1.34. IMPRESSION: Postoperative day #1 status post endoscopic retrograde cholangiopancreatography (ERCP) with lithotripsy, balloon sweep and common bile duct stent placement for common bile duct stones. The patient has increased abdominal pain from this morning showing small extraluminal air around the head of pancreas and duodenum. There were also signs of pancreatitis with small to medium ascites. For these findings I asked Dr. Lobo from surgery to consult on this patient for further evaluation if needed. The consensus at this time is to monitor this patient closely for spiking temperatures, white cell count and consider repeating a CAT scan in the morning depending on progress tonight. The patient will remain nothing by mouth. Her intravenous (IV) fluids will be increased. We will keep her on broad-spectrum antibiotics, which at present are Zosyn. At this time we will proceed with conservative management and reassess throughout the night and in a.m.
[2018-11-03] MEDS: ACETAMINOPHEN TAB 650MG DOSE (2X325MG) PO PRN ×2 (02:44→10:01)
[2018-11-03] MEDS: NS 1,000 ML IV SCH ×2 (03:56→20:55)
[2018-11-03] MEDS: LEVOTHYROXINE 125MCG TABLET (0.125MG) PO SCH (05:24)
[2018-11-03] MEDS: HEPARIN SOD (PORCINE) 5000 UNITS/ML VIAL SC SCH ×3 (05:25→23:12)
[2018-11-03] MEDS: PIPERACILLIN/TAZOBACTAM SOD 2.25 GM in D5W MINI-BAG PLUS 50 ML IV SCH ×4 (05:25→23:08)
[2018-11-03 06:00] VITALS: BP 137/63
[2018-11-03] MEDS ORDERED: NS 1,000 ML IV SCH (06:15)
[2018-11-03 06:25] LABS: HEMATOCRIT 28.8 % (36.0-47.0); HEMOGLOBIN 9.7 g/dl (12.0-15.5); MEAN CORPUSCULAR HEMOGLOBIN 30.6 pg (27.0-33.0); MEAN CORPUSCULAR HGB CONC 33.7 g/dl (32.0-36.5); MEAN CORPUSCULAR VOLUME 90.9 fl (80.0-96.0); PLATELET COUNT, AUTOMATED 111 10^3/uL (150-450); RED BLOOD COUNT 3.17 10^6/uL (4.00-5.40); WHITE BLOOD COUNT 5.4 10^3/uL (4.0-10.0)
[2018-11-03 06:48] LABS: ALBUMIN 2.1 GM/DL (3.2-5.2); BILIRUBIN,TOTAL 3.1 MG/DL (0.2-1.0); CALCIUM LEVEL 8.3 MG/DL (8.8-10.2); CREATININE FOR GFR 1.41 MG/DL (0.55-1.30); GLOMERULAR FILTRATION RATE 37.9 (>32); POTASSIUM SERUM 3.1 MEQ/L (3.5-5.1); TOTAL PROTEIN 5.1 GM/DL (6.4-8.2)
--- NOTE | 2018-11-03 07:03 | IPNPDOC ---
Text Note Date of Service The patient was seen on 11/03/18. NOTE Pt was seen and examined at bedside. S/P ERCP with stent placement on 11/01. Pt d eveloped acute abdomen pain on 12/02 , today she is awake and alert with no acute distress. abdomen pain has improved, she has been NPO since yesterday PM , as per general surgery attending can be resumed on clear liquids and be monitored for any acute symptoms. Son is at bedside, was made aware of the course of treatment and plans. Subjective: General: Reports: Normal Appetite; Denies: Chills, Night Sweats, Fatigue, Malaise Constitutional: Denies: Chills, Fever, Night Sweats Eyes: Denies: Pain, Vision change ENT: Denies: Head Aches, Ear Pain, Dysphagia Skin: Denies: Rash, Lesions, Breakdown GI: as above CVS: denies CP , SOB, palpitations Physical Examination General Exam: Positive: Alert, moderate Distress Eye Exam: Positive: PERRLA, Conjunctiva & lids normal, EOMI; Negative: Sclera icteric ENT Exam: Positive: Atraumatic, Mucous membr. moist/pink, Pharynx Normal Neck Exam: Positive: Supple; Negative: JVD, thyromegaly Chest Exam: Positive: Clear to auscultation, Normal air movement Heart Exam: Positive: Rate Normal, Regular Rhythm, Normal S1, Normal S2; Negative: Murmurs, Rubs Abdomen Exam: Abdomen is soft , no rebound tenderness or guarding. No ascites. Vital Signs Date Time Temp Pulse Resp B/P (MAP) Pulse Ox O2 Delivery O2 Flow Rate FiO2 11/03/18 14:00 99.3 70 24 139/54 (82) 97 11/03/18 10:00 98.2 73 21 142/76 (98) 98 11/03/18 06:00 97.3 73 16 137/63 (87) 95 11/02/18 22:00 98.3 71 18 143/72 (95) 96 11/02/18 18:00 100.5 65 18 138/62 (87) 97 Intake & Output 11/03/18 06:00 Intake Total 1960 ml Output Total 850 ml Balance 1110 ml Laboratory Tests 11/02/18 18:53: White Blood Count 5.9, Red Blood Count 3.65L, Hemoglobin 11.1L, Hematocrit 33.3L, Mean Corpuscular Volume 91.2, Mean Corpuscular Hemoglobin 30.4, Mean Corpuscular Hemoglobin Concent 33.3, Red Cell Distribution Width 15.9H, Platelet Count 150, Neutrophils (%) (Auto) 81.7H, Lymphocytes (%) (Auto) 12.1L, Monocytes (%) (Auto) 5.5H, Eosinophils (%) (Auto) 0.2, Basophils (%) (Auto) 0.2, Neutrophils # (Auto) 4.8, Lymphocytes # (Auto) 0.7L, Monocytes # (Auto) 0.3, Eosinophils # (Auto) 0.0, Basophils # (Auto) 0.0, Immature Granulocyte % (Auto) 0.3, Nucleated Red Blood Cells % (auto) 0.0, Blood Urea Nitrogen 11, Creatinine 1.34H, Sodium Level 141, Potassium Level 3.3L, Chloride Level 108H, Carbon Dioxide Level 22, Calcium Level 8.6L, Aspartate Amino Transf (AST/SGOT) 63H, Alanine Aminotransferase (ALT/SGPT) 45, Alkaline Phosphatase 183H, Total Bilirubin 2.8H, Total Protein 5.6L, Albumin 2.5L, Anion Gap 11, Glomerular Filtration Rate 40.2, Fasting Glucose 179H, Lactic Acid Level 1.7, Albumin/Globulin Ratio 0.81L, Amylase Level 137H, Lipase 401H 11/02/18 20:11: Bedside Glucose (Misc Panel) 194H 11/03/18 05:57: Bedside Glucose (Misc Panel) 175H 11/03/18 06:12: White Blood Count 5.4, Red Blood Count 3.17L, Hemoglobin 9.7L, Hematocrit 28.8L, Mean Corpuscular Volume 90.9, Mean Corpuscular Hemoglobin 30.6, Mean Corpuscular Hemoglobin Concent 33.7, Red Cell Distribution Width 15.9H, Platelet Count 111L, Nucleated Red Blood Cells % (auto) 0.0, Blood Urea Nitrogen 15, Creatinine 1.41H, Sodium Level 139, Potassium Level 3.1L, Chloride Level 110H, Carbon Dioxide Level 21, Calcium Level 8.3L, Aspartate Amino Transf (AST/SGOT) 28, Alanine Aminotransferase (ALT/SGPT) 35, Alkaline Phosphatase 155H, Total Bilirubin 3.1H, Total Protein 5.1L, Albumin 2.1L, Anion Gap 8, Glomerular Filtration Rate 37.9, Fasting Glucose 172H, Albumin/Globulin Ratio 0.70L, Amylase Level 71, Lipase 191 11/03/18 11:51: Bedside Glucose (Misc Panel) 156H Current Medications Medications (Trade) Dose Ordered Sig/Neelam Route PRN Reason Start Time Stop Time Status Last Admin Dose Admin Acetaminophen (Tylenol Tab) 650 mg Q4HP PRN PO PAIN OR FEVER 10/30/18 11:45 11/03/18 10:01 650 MG Aspirin (Ecotrin) 81 mg DAILY PO 10/30/18 09:00 11/03/18 10:02 81 MG Heparin Sodium (Porcine) (Heparin) 5,000 units Q8H SC 10/30/18 06:00 11/03/18 14:27 5,000 UNITS Insulin Human Lispro (HumaLOG INSULIN) SEE PROTOCOL TABLE AC SC 10/30/18 07:30 11/02/18 13:05 2 UNITS Levothyroxine Sodium (Synthroid) 125 mcg DAILY@0600 PO 10/30/18 06:00 11/03/18 05:24 125 MCG Magnesium Gluconate (Magnesium Gluconate) 500 mg DAILY PO 10/30/18 09:00 11/03/18 10:01 500 MG Memantine (Namenda) 10 mg DAILY PO 10/30/18 09:00 11/03/18 10:02 10 MG Multivitamins (Theragram-M) 1 tab DAILY PO 10/30/18 09:00 11/03/18 10:02 1 TAB Nystatin (Mycostatin Powder, Nystop) apply to abdominal folds ... BID TOP 10/30/18 09:00 11/03/18 10:03 1 DOSE Omeprazole (PriLOSEC) 20 mg BID PO 10/30/18 09:00 11/03/18 10:01 20 MG Piperacillin Sod/ Tazobactam Sod 2.25 gm/Dextrose 50 ml @ 100 mls/hr Q6H IV 10/30/18 06:00 11/03/18 13:24 100 MLS/HR Risperidone (RisperDAL) 1 mg QHS PO 10/29/18 21:00 11/02/18 21:46 1 MG Sertraline HCl (Zoloft) 50 mg DAILY PO 10/30/18 09:00 11/03/18 10:02 50 MG Sodium Chloride 1,000 ml @ 100 mls/hr Q10H IV 11/02/18 20:42 11/03/18 03:56 150 MLS/HR Ursodiol (Actigall) 600 mg BID PO 11/01/18 21:00 11/03/18 10:02 600 MG Assessment Pt is 82 y/o F with Hx of alzheimer's disease, s/p cholecystectomy 2 years ago as per son, upon encounter to ED found to have elevated liver enzymes with CBD dilatation in U/S. Abdominal MRI completed on 10/30 confirmed multiple stones in distal of CBD. On 10/31/18 Pt son reported that she underwent ERCP two times during the past two years first to place a stent and second to remove the stent. Spoke with Dr. Nuno from GI regarding current admission and findings in MRCP as well as Hx of ERCP. On 11/01/18 pt underwent ERCP with stent placement. 1-Ascending cholangitis: secondary to choledocholithiasis confirmed in abdomen MRCP, elevated liver enzymes and hyperbilirubinemia. Pt on broad spectrum Abx. Close clinical monitoring. serial CMP, CBC. IVF resuscitation. 2-S/P ERCP lithotripsy, balloon sweep and common bile duct stent placement : GI on board, recommendations have been appreciated. 3-Ruling out pancreatitis, improved abdomen pain, lipase trending down AMylase, Lipase in AM Cont Zosyn VS q4hr Cont IVF NS Advance diet to clear liquids ABdomen CT stat appreciated. PT/OT for home safety evaluation SW/ VS,Chyna, I+O VS, Fishbone, I+O Laboratory Tests 11/02/18 18:53 Red Blood Count 3.65 L, Mean Corpuscular Volume 91.2, Mean Corpuscular Hem oglobin 30.4, Mean Corpuscular Hemoglobin Concent 33.3, Red Cell Distribution Width 15.9 H, Neutrophils (%) (Auto) 81.7 H, Lymphocytes (%) (Auto) 12.1 L, Monocytes (%) (Auto) 5.5 H, Eosinophils (%) (Auto) 0.2, Basophils (%) (Auto) 0.2, Neutrophils # (Auto) 4.8, Lymphocytes # (Auto) 0.7 L, Monocytes # (Auto) 0.3, Eosinophils # (Auto) 0.0, Basophils # (Auto) 0.0, Calcium Level 8.6 L, Aspartate Amino Transf (AST/SGOT) 63 H, Alanine Aminotransferase (ALT/SGPT) 45, Alkaline Phosphatase 183 H, Total Bilirubin 2.8 H, Total Protein 5.6 L, Albumin 2.5 L 11/03/18 06:12 Red Blood Count 3.17 L, Mean Corpuscular Volume 90.9, Mean Corpuscular Hemoglobin 30.6, Mean Corpuscular Hemoglobin Concent 33.7, Red Cell Distribution Width 15.9 H, Calcium Level 8.3 L, Aspartate Amino Transf (AST/SGOT) 28, Alanine Aminotransferase (ALT/SGPT) 35, Alkaline Phosphatase 155 H, Total Bilirubin 3.1 H, Total Protein 5.1 L, Albumin 2.1 L Vital Signs Date Time Temp Pulse Resp B/P (MAP) Pulse Ox O2 Delivery O2 Flow Rate FiO2 11/03/18 06:00 97.3 73 16 137/63 (87) 95 11/01/18 17:35 1 10/30/18 03:35 Room Air I&O- Last 24 Hours up to 6 AM0 11/03/18 06:00 Intake Total 1960 ml Output Total 850 ml Balance 1110 ml JASMIN GRAF MD Nov 03, 2018 07:03
[2018-11-03] MEDS: HumaLOG INSULIN (NovoLOG) PER UNIT SC SCH ×4 (07:30→21:00)
[2018-11-03 10:00] VITALS: BP 142/76
[2018-11-03] MEDS: OMEPRAZOLE 20 MG CAP PO SCH ×2 (10:01→23:09)
[2018-11-03] MEDS: MAGNESIUM GLUCONATE 500 MG TAB PO SCH (10:01)
[2018-11-03] MEDS: MEMANTINE 5MG TABLET (NAMENDA) PO SCH (10:02)
[2018-11-03] MEDS: ASPIRIN 81 MG ENTERIC TAB PO SCH (10:02)
[2018-11-03] MEDS: MULTIVITAMINS/MINERALS THERAP 1 TAB PO SCH (10:02)
[2018-11-03] MEDS: KCL 10MEQ/100ML SWI (KRUN) 10 MEQ in APPROPRIATE DILUENT 1 EA IV SCH ×4 (10:02→14:27)
[2018-11-03] MEDS: URSODIOL 300 MG CAP PO SCH ×2 (10:02→23:12)
[2018-11-03] MEDS: SERTRALINE HCL 50 MG TAB PO SCH (10:02)
[2018-11-03] MEDS: NYSTATIN 100,000 UNITS/GM TOPICAL PWD 15 GM TOP SCH ×2 (10:03→23:09)
[2018-11-03 14:00] VITALS: BP 139/54
--- NOTE | 2018-11-03 16:15 | IPN ---
DATE: 11/03/2018 Patient overall seems to be doing much better today than she was last night. Abdominal pain has mostly resolved. She is not having any significant discomfort. She has been up, moving around a little bit more and she is, at this time, hungry/thirsty. She overall states that she is a little bit uncomfortable, with some pressure in the upper abdomen, but not significant pain or tenderness, as she had last night. VITAL SIGNS: She has been afebrile. Blood pressure has been good overnight and her urine output has been good as well. Her laboratory exam reveals still a normal white count this morning and liver function tests (LFTs) that AST and alkaline phosphatase that continue to decrease, and lipase has returned to normal. Her abdomen is softer, morbidly obese, as it was last night, but only mildly uncomfortable in the epigastric area, without significant guarding or rebound. IMPRESSION/PLAN: Patient has resolution of her endoscopic retrograde cholangiopancreatography (ERCP) associated pancreatitis and, at this point, my recommendation is that we start her on a clear liquid diet, see how she does for the next 24 hours. If she is doing well, she can progress to a regular diet and be discharged home after tolerating a regular diet tomorrow, from a surgical standpoint, and follow up with her primary care and hematologist oncologist after discharge.
[2018-11-03 18:00] VITALS: BP 97/78
--- NOTE | 2018-11-03 21:56 | CR ---
DATE OF CONSULTATION: 11/02/2018 REASON FOR CONSULTATION: Abdominal pain, status post endoscopic retrograde cholangiopancreatography (ERCP). 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 She states that the patient has been moderately severe today, persistent, not getting any worse than it was earlier. PAST MEDICAL HISTORY: Significant for: 1. History of Alzheimer's. 2. History of coronary artery disease. 3. History of myocardial infarction. 4. History of stenting. 5. History of hyperlipidemia. 6. Diabetes mellitus. 7. Hypothyroidism. 8. Appendectomy. 9. Cholecystectomy. 10. Hysterectomy. MEDICATIONS: Include: - aspirin - vitamin D - vitamin B - Synthroid - magnesium - Namenda - omeprazole - risperidone - sertraline - Januvia PHYSICAL EXAMINATION: Reveals a morbidly obese, white female who looks stated age. HEENT: Unremarkable, although she has some scleral icterus. NECK: Supple without adenopathy. LUNGS: Diminished bilaterally without wheezing or rhonchi. HEART: Regular with a few irregular beats. ABDOMEN: Softly distended. She is tender in the epigastric area and slightly in the subcostal areas bilaterally, right worse than left. There are some inflammatory changes around the head of the pancreas. There is a small air bubble that I can see either in the pancreas itself or within the duodenum, it is hard to tell. There is some minimal fluid around Gerota's on the right hand side, but I am not convinced that this is free fluid. There are some minimal ascites in the pelvis. IMPRESSION/PLAN: The patient is status post endoscopic retrograde cholangiopancreatography (ERCP) and probably had some pancreatitis as the most likely etiology for her abdominal pain in the epigastric area. Although there is a question of perforation, the treatment for both at this time is supportive care, nothing by mouth, IV fluids, and observation overnight. I do feel that she needs to be restarted on some IV fluids. My concern is that given her advanced age, despite not having an elevated white count, she may have some immunosuppressive issues ongoing that may be contributing to this. I anticipate that given her age, she is one individual that would not have a lot of reserves and if she has some hypotension or tachycardia that develops overnight, would recommend transferring her to a higher level of care. Otherwise, we will see how things are in the morning and if this is a short episode of pancreatitis, she may be improving and we can then progress her diet, etc.
[2018-11-03 22:00] VITALS: BP 134/80
[2018-11-03] MEDS: risperiDONE 1 MG TAB PO SCH (23:09)
[2018-11-04] VITALS (7 sets, daily range): BP systolic 128–191; BP diastolic 48–87
[2018-11-04] MEDS: NS 1,000 ML IV SCH ×4 (05:12→22:41)
[2018-11-04 06:21] LABS: HEMATOCRIT 30.9 % (36.0-47.0); HEMOGLOBIN 10.1 g/dl (12.0-15.5); MEAN CORPUSCULAR HGB CONC 32.7 g/dl (32.0-36.5); MEAN CORPUSCULAR VOLUME 91.7 fl (80.0-96.0); PLATELET COUNT, AUTOMATED 126 10^3/uL (150-450); RED BLOOD COUNT 3.37 10^6/uL (4.00-5.40); WHITE BLOOD COUNT 6.2 10^3/uL (4.0-10.0)
[2018-11-04 06:31] LABS: BILIRUBIN,TOTAL 2.7 MG/DL (0.2-1.0); CALCIUM LEVEL 8.4 MG/DL (8.8-10.2); CREATININE FOR GFR 1.33 MG/DL (0.55-1.30); GLOMERULAR FILTRATION RATE 40.6 (>32); POTASSIUM SERUM 3.2 MEQ/L (3.5-5.1); TOTAL PROTEIN 5.4 GM/DL (6.4-8.2)
[2018-11-04 06:52] LABS: LYMPHOCYTES 13 % (16-52); MONOCYTES 2 % (0-8); NEUTROPHILS 83 % (35-75)
[2018-11-04 06:53] LABS: ANISOCYTOSIS 1+; PLATELET ESTIMATE DECREASED (NORMAL)
[2018-11-04] MEDS: HEPARIN SOD (PORCINE) 5000 UNITS/ML VIAL SC SCH ×3 (07:07→22:41)
[2018-11-04] MEDS: LEVOTHYROXINE 125MCG TABLET (0.125MG) PO SCH (07:07)
[2018-11-04] MEDS: PIPERACILLIN/TAZOBACTAM SOD 2.25 GM in D5W MINI-BAG PLUS 50 ML IV SCH ×3 (07:12→17:29)
[2018-11-04] MEDS: MULTIVITAMINS/MINERALS THERAP 1 TAB PO SCH (07:57)
[2018-11-04] MEDS: ASPIRIN 81 MG ENTERIC TAB PO SCH (07:57)
[2018-11-04] MEDS: OMEPRAZOLE 20 MG CAP PO SCH ×2 (07:57→22:40)
[2018-11-04] MEDS: MAGNESIUM GLUCONATE 500 MG TAB PO SCH (07:57)
[2018-11-04] MEDS: NYSTATIN 100,000 UNITS/GM TOPICAL PWD 15 GM TOP SCH ×2 (07:57→22:40)
[2018-11-04] MEDS: MEMANTINE 5MG TABLET (NAMENDA) PO SCH (07:57)
[2018-11-04] MEDS: SERTRALINE HCL 50 MG TAB PO SCH (07:57)
[2018-11-04] MEDS: URSODIOL 300 MG CAP PO SCH ×2 (07:57→22:40)
[2018-11-04] MEDS: HumaLOG INSULIN (NovoLOG) PER UNIT SC SCH ×4 (07:58→21:00)
--- NOTE | 2018-11-04 09:43 | IPN ---
DATE OF SERVICE: 11/04/2018 The patient overall seems to be doing well. She has been afebrile today and her white count is still normal. Her abdominal pain is completely resolved and her liver function tests are continuing to improve. Her abdomen is soft, nontender, nondistended. IMPRESSION AND PLAN: The patient had post ERCP pancreatitis and seems to be improving at this time. I will sign off. If you need general surgery for additional recommendations, please contact us. Otherwise will be available should any other questions or concerns arise.
[2018-11-04] MEDS: ACETAMINOPHEN TAB 650MG DOSE (2X325MG) PO PRN (12:12)
[2018-11-04] MEDS: risperiDONE 1 MG TAB PO SCH (22:40)
--- NOTE | 2018-11-04 23:45 | IPNPDOC ---
Text Note Date of Service The patient was seen on 11/04/18. NOTE Pt was seen and examined at bedside. S/P ERCP with stent placement on 11/01. Pt developed acute abdomen pain on 12/02 , today she is awake and alert with no acute distress. abdomen pain has improved, diet has advanced, pt tolerates well. No BM recorded yet. no difficulty urinating. Subjective: General: Reports: Normal Appetite; Denies: Chills, Night Sweats, Fatigue, Malaise Constitutional: Denies: Chills, Fever, Night Sweats Eyes: Denies: Pain, Vision change ENT: Denies: Head Aches, Ear Pain, Dysphagia Skin: Denies: Rash, Lesions, Breakdown GI: as above CVS: denies CP , SOB, palpitations Physical Examination General Exam: Positive: Alert, moderate Distress Eye Exam: Positive: PERRLA, Conjunctiva & lids normal, EOMI; Negative: Sclera icteric ENT Exam: Positive: Atraumatic, Mucous membr. moist/pink, Pharynx Normal Neck Exam: Positive: Supple; Negative: JVD, thyromegaly Chest Exam: Positive: Clear to auscultation, Normal air movement Heart Exam: Positive: Rate Normal, Regular Rhythm, Normal S1, Normal S2; Negative: Murmurs, Rubs Abdomen Exam: Abdomen is soft , no rebound tenderness or guarding. No ascites. Vital Signs Date Time Temp Pulse Resp B/P (MAP) Pulse Ox O2 Delivery O2 Flow Rate FiO2 11/05/18 02:00 97.9 63 22 148/71 (96) 96 11/04/18 22:00 97.8 65 23 150/70 (96) 96 11/04/18 18:18 128/48 (74) 11/04/18 17:30 96.9 66 20 191/87 (121) 98 11/04/18 14:00 98.9 66 21 132/53 (79) 96 11/04/18 10:00 99.6 68 24 148/62 (90) 97 11/04/18 06:00 98.5 78 23 128/68 (88) 96 Intake & Output 11/05/18 06:00 Intake Total 1490 ml Output Total 0 ml Balance 1490 ml Laboratory Tests 11/04/18 05:32: White Blood Count 6.2, Red Blood Count 3.37L, Hemoglobin 10.1L, Hematocrit 30.9L, Mean Corpuscular Volume 91.7, Mean Corpuscular Hemoglobin 30.0, Mean Corpuscular Hemoglobin Concent 32.7, Red Cell Distribution Width 17.0H, Platelet Count 126L, Nucleated Red Blood Cells % (auto) 0.0, Neutrophils 83H, Band Neutrophils 2, Lymphocytes (Manual) 13L, Monocytes (Manual) 2, Platelet Estimate DECREASED, Anisocytosis 1+, Blood Urea Nitrogen 15, Creatinine 1.33H, Sodium Level 138, Potassium Level 3.2L, Chloride Level 111H, Carbon Dioxide Level 17L, Calcium Level 8.4L, Aspartate Amino Transf (AST/SGOT) 17, Alanine Aminotransferase (ALT/SGPT) 27, Alkaline Phosphatase 145H, Total Bilirubin 2.7H, Total Protein 5.4L, Albumin 2.0L, Anion Gap 10, Glomerular Filtration Rate 40.6, Fasting Glucose 148H, Albumin/Globulin Ratio 0.59L 11/04/18 05:49: Bedside Glucose (Misc Panel) 159H 11/04/18 11:26: Bedside Glucose (Misc Panel) 177H 11/04/18 16:37: Bedside Glucose (Misc Panel) 129H 11/04/18 20:09: Bedside Glucose (Misc Panel) 141H Microbiology 10/29/18 Blood Culture - Final, Complete NO GROWTH AFTER 5 DAYS 10/29/18 Blood Culture - Final, Complete NO GROWTH AFTER 5 DAYS Current Medications Medications (Trade) Dose Ordered Sig/Neelam Route PRN Reason Start Time Stop Time Status Last Admin Dose Admin Acetaminophen (Tylenol Tab) 650 mg Q4HP PRN PO PAIN OR FEVER 10/30/18 11:45 11/04/18 12:12 650 MG Aspirin (Ecotrin) 81 mg DAILY PO 10/30/18 09:00 11/04/18 07:57 81 MG Heparin Sodium (Porcine) (Heparin) 5,000 units Q8H SC 10/30/18 06:00 11/04/18 22:41 5,000 UNITS Insulin Human Lispro (HumaLOG INSULIN) SEE PROTOCOL TABLE AC NC 10/30/18 07:30 11/04/18 17:29 2 UNITS Levothyroxine Sodium (Synthroid) 125 mcg DAILY@0600 PO 10/30/18 06:00 11/04/18 07:07 125 MCG Magnesium Gluconate (Magnesium Gluconate) 500 mg DAILY PO 10/30/18 09:00 11/04/18 07:57 500 MG Memantine (Namenda) 10 mg DAILY PO 10/30/18 09:00 11/04/18 07:57 10 MG Multivitamins (Theragram-M) 1 tab DAILY PO 10/30/18 09:00 11/04/18 07:57 1 TAB Nystatin (Mycostatin Powder, Nystop) apply to abdominal folds ... BID TOP 10/30/18 09:00 11/04/18 22:40 1 DOSE Omeprazole (PriLOSEC) 20 mg BID PO 10/30/18 09:00 11/04/18 22:40 20 MG Piperacillin Sod/ Tazobactam Sod 2.25 gm/Dextrose 50 ml @ 100 mls/hr Q6H IV 10/30/18 06:00 11/05/18 00:44 100 MLS/HR Risperidone (RisperDAL) 1 mg QHS PO 10/29/18 21:00 11/04/18 22:40 1 MG Sertraline HCl (Zoloft) 50 mg DAILY PO 10/30/18 09:00 11/04/18 07:57 50 MG Sodium Chloride 1,000 ml @ 100 mls/hr Q10H IV 11/02/18 20:42 11/04/18 22:41 100 MLS/HR Ursodiol (Actigall) 600 mg BID PO 11/01/18 21:00 11/04/18 22:40 600 MG Assessment Pt is 82 y/o F with Hx of alzheimer's disease, s/p cholecystectomy 2 years ago as per son, upon encounter to ED found to have elevated liver enzymes with CBD dilatation in U/S. Abdominal MRI completed on 10/30 confirmed multiple stones in distal of CBD. On 10/31/18 Pt son reported that she underwent ERCP two times during the past two years first to place a stent and second to remove the stent. Spoke with Dr. Nuno from GI regarding current admission and findings in MRCP as well as Hx of ERCP. On 11/01/18 pt underwent ERCP with stent placement. 1-Ascending cholangitis: secondary to choledocholithiasis confirmed in abdomen MRCP, elevated liver enzymes and hyperbilirubinemia. Pt on broad spectrum Abx. Close clinical monitoring. serial CMP, CBC. IVF resuscitation. 2-S/P ERCP lithotripsy, balloon sweep and common bile duct stent placement : GI on board, recommendations have been appreciated. 3-Ruling out pancreatitis, improved abdomen pain, lipase trending down AMylase, Lipase in AM Cont Zosyn VS per floor protocol dc IVF NS Advance diet to regular ABdomen CT stat appreciated. PT/OT for discharge plan SW/CM VS,Fishbone, I+O VS, Fishbone, I+O Laboratory Tests 11/04/18 05:32 Red Blood Count 3.37 L, Mean Corpuscular Volume 91.7, Mean Corpuscular Hemoglobin 30.0, Mean Corpuscular Hemoglobin Concent 32.7, Red Cell Distribution Width 17.0 H, Calcium Level 8.4 L, Aspartate Amino Transf (AST/SGOT) 17, Alanine Aminotransferase (ALT/SGPT) 27, Alkaline Phosphatase 145 H, Total Bilirubin 2.7 H, Total Protein 5.4 L, Albumin 2.0 L Vital Signs Date Time Temp Pulse Resp B/P (MAP) Pulse Ox O2 Delivery O2 Flow Rate FiO2 11/04/18 18:18 128/48 (74) 11/04/18 17:30 96.9 66 20 98 11/01/18 17:35 1 10/30/18 03:35 Room Air I&O- Last 24 Hours up to 6 AM 11/04/18 06:00 Intake Total 470 ml Output Total 700 ml Balance -230 ml JASMIN GRAF MD Nov 04, 2018 23:45
[2018-11-05] MEDS: PIPERACILLIN/TAZOBACTAM SOD 2.25 GM in D5W MINI-BAG PLUS 50 ML IV SCH ×4 (00:44→17:34)
[2018-11-05 02:00] VITALS: BP 148/71
[2018-11-05 06:00] VITALS: BP 114/62
[2018-11-05] MEDS: LEVOTHYROXINE 125MCG TABLET (0.125MG) PO SCH (07:01)
[2018-11-05] MEDS: HEPARIN SOD (PORCINE) 5000 UNITS/ML VIAL SC SCH ×3 (07:02→22:22)
[2018-11-05] MEDS: MAGNESIUM GLUCONATE 500 MG TAB PO SCH (08:03)
[2018-11-05] MEDS: HumaLOG INSULIN (NovoLOG) PER UNIT SC SCH ×4 (08:03→21:00)
[2018-11-05] MEDS: URSODIOL 300 MG CAP PO SCH ×2 (08:03→22:22)
[2018-11-05] MEDS: ASPIRIN 81 MG ENTERIC TAB PO SCH (08:03)
[2018-11-05] MEDS: MEMANTINE 5MG TABLET (NAMENDA) PO SCH (08:03)
[2018-11-05] MEDS: SERTRALINE HCL 50 MG TAB PO SCH (08:03)
[2018-11-05] MEDS: OMEPRAZOLE 20 MG CAP PO SCH ×2 (08:03→22:22)
[2018-11-05] MEDS: MULTIVITAMINS/MINERALS THERAP 1 TAB PO SCH (08:03)
[2018-11-05] MEDS: NYSTATIN 100,000 UNITS/GM TOPICAL PWD 15 GM TOP SCH ×2 (08:04→22:23)
[2018-11-05 09:09] LABS: HEMOGLOBIN 9.8 g/dl (12.0-15.5); MEAN CORPUSCULAR HEMOGLOBIN 29.8 pg (27.0-33.0); MEAN CORPUSCULAR HGB CONC 33.8 g/dl (32.0-36.5); MEAN CORPUSCULAR VOLUME 88.1 fl (80.0-96.0); PLATELET COUNT, AUTOMATED 148 10^3/uL (150-450); RED BLOOD COUNT 3.29 10^6/uL (4.00-5.40)
[2018-11-05 09:20] LABS: ALBUMIN 1.9 GM/DL (3.2-5.2); BILIRUBIN,TOTAL 1.9 MG/DL (0.2-1.0); CALCIUM LEVEL 8.5 MG/DL (8.8-10.2); CREATININE FOR GFR 1.35 MG/DL (0.55-1.30); GLOMERULAR FILTRATION RATE 39.9 (>32); MAGNESIUM LEVEL 2.1 MG/DL (1.8-2.4); POTASSIUM SERUM 2.9 MEQ/L (3.5-5.1); TOTAL PROTEIN 5.4 GM/DL (6.4-8.2)
[2018-11-05 10:00] VITALS: BP 150/67
[2018-11-05] MEDS ORDERED: POTASSIUM CHLORIDE 10 MEQ SR TABLET PO ONE ×2 (10:30→18:00)
[2018-11-05 14:00] VITALS: BP 160/71
--- NOTE | 2018-11-05 15:16 | IPNPDOC ---
Subjective Date Seen The patient was seen on 11/05/18. Subjective Chief Complaint/HPI Patient seen and examined at the bedside. Denies any abdominal pain at this time. States that she has been tolerating a liquid diet without any acute complaints. Her diet has been advanced to regular this morning. No overnight events noted. Objective Physical Examination General Exam: Positive: Alert, Cooperative, No Acute Distress Eye Exam: Negative: Sclera icteric ENT Exam: Positive: Atraumatic, Mucous membr. moist/pink Neck Exam: Negative: JVD Chest Exam: Positive: Clear to auscultation, Normal air movement Heart Exam: Positive: Rate Normal, Regular Rhythm, Normal S1, Normal S2 Abdomen Exam: Positive: Soft; Negative: Tenderness, Hepatospenomegaly Extremity Exam: Negative: Tenderness, Swelling Assessment /Plan Plan/VTE VTE Prophylaxis Ordered?: Yes Plan Ascending Cholangitis MRCP on 10/30 notable for moderate intrahepatic and extrahepatic biliary dilatation with stones present in the common bile duct s/p ERCP lithotripsy, balloon sweep and common bile duct stent placement on 11/01 LFTs have since trended downward Patient's diet has been advanced, and she is tolerating this w/o any acute complaints We will transition off of Zosyn in the next 24 hrs We will continue to monitor the patient this time Chronic kidney disease stage III Serum creatinine appears to be at baseline Hypokalemia Supplemental potassium ordered Hypothyroidism Continue levothyroxine Anxiety/depression Continue sertraline, Risperdal Diabetes mellitus Insulin sliding scale ordered Dementia Continue memantine GERD Continue omeprazole DVT prophylaxis Heparin subcutaneous Disposition-pending continued clinical improvement, physical therapy on board for further functional optimization. VS, I&O, 24H, [facility] Vital Signs/I&O Vital Signs Date Time Temp Pulse Resp B/P (MAP) Pulse Ox O2 Delivery O2 Flow Rate FiO2 11/05/18 14:00 97.7 69 18 160/71 (100) 99 11/01/18 17:35 1 10/30/18 03:35 Room Air I&O- Last 24 Hours up to 6 AM 11/05/18 05:59 Intake Total 1490 ml Output Total 0 ml Balance 1490 ml Laboratory Data 24H LABS Laboratory Tests 2 11/04/18 16:37: Bedside Glucose (Misc Panel) 129H 11/04/18 20:09: Bedside Glucose (Misc Panel) 141H 11/05/18 05:27: Bedside Glucose (Misc Panel) 138H 11/05/18 08:27: Nucleated Red Blood Cells % (auto) 0.0, Anion Gap 10, Glomerular Filtration Rate 39.9, Blood Urea Nitrogen 17, Creatinine 1.35H, Sodium Level 138, Potassium Level 2.9*L, Chloride Level 109H, Carbon Dioxide Level 19L, Calcium Level 8.5L, Aspartate Amino Transf (AST/SGOT) 20, Alanine Aminotransferase (ALT/SGPT) 28, Alkaline Phosphatase 140H, Total Bilirubin 1.9H, Total Protein 5.4L, Albumin 1.9L, Magnesium Level 2.1, Albumin/Globulin Ratio 0.54L 11/05/18 11:23: Bedside Glucose (Misc Panel) 199H CBC/BMP Laboratory Tests 11/05/18 08:27 Red Blood Count 3.29 L, Mean Corpuscular Volume 88.1, Mean Corpuscular Hemoglobin 29.8, Mean Corpuscular Hemoglobin Concent 33.8, Red Cell Distribution Width 16.5 H, Calcium Level 8.5 L, Aspartate Amino Transf (AST/SGOT) 20, Alanine Aminotransferase (ALT/SGPT) 28, Alkaline Phosphatase 140 H, Total Bilirubin 1.9 H, Total Protein 5.4 L, Albumin 1.9 L Microbiology Microbiology 10/29/18 Blood Culture - Final, Complete NO GROWTH AFTER 5 DAYS 10/29/18 Blood Culture - Final, Complete NO GROWTH AFTER 5 DAYS JOHN VAZQUEZ MD Nov 05, 2018 15:16
[2018-11-05 18:00] VITALS: BP 165/74
[2018-11-05 22:00] VITALS: BP 140/70
[2018-11-05] MEDS: risperiDONE 1 MG TAB PO SCH (22:22)
[2018-11-06] MEDS: PIPERACILLIN/TAZOBACTAM SOD 2.25 GM in D5W MINI-BAG PLUS 50 ML IV SCH ×2 (00:22→05:56)
[2018-11-06 02:00] VITALS: BP 132/62
[2018-11-06] MEDS: LEVOTHYROXINE 125MCG TABLET (0.125MG) PO SCH (05:56)
[2018-11-06] MEDS: HEPARIN SOD (PORCINE) 5000 UNITS/ML VIAL SC SCH ×3 (05:56→21:35)
[2018-11-06 05:59] LABS: HEMATOCRIT 26.5 % (36.0-47.0); MEAN CORPUSCULAR HEMOGLOBIN 29.7 pg (27.0-33.0); MEAN CORPUSCULAR VOLUME 87.5 fl (80.0-96.0); PLATELET COUNT, AUTOMATED 175 10^3/uL (150-450); RED BLOOD COUNT 3.03 10^6/uL (4.00-5.40); WHITE BLOOD COUNT 9.9 10^3/uL (4.0-10.0)
[2018-11-06 06:00] VITALS: BP 138/74
[2018-11-06] MEDS ORDERED: LevoFLOXacin 750 MG TABLET PO SCH (06:00)
[2018-11-06 06:27] LABS: ALBUMIN 1.7 GM/DL (3.2-5.2); BILIRUBIN,TOTAL 1.3 MG/DL (0.2-1.0); CALCIUM LEVEL 8.7 MG/DL (8.8-10.2); CREATININE FOR GFR 1.21 MG/DL (0.55-1.30); GLOMERULAR FILTRATION RATE 45.2 (>32); POTASSIUM SERUM 3.3 MEQ/L (3.5-5.1); TOTAL PROTEIN 5.3 GM/DL (6.4-8.2)
[2018-11-06] MEDS: HumaLOG INSULIN (NovoLOG) PER UNIT SC SCH ×4 (07:30→21:00)
[2018-11-06] MEDS: MAGNESIUM GLUCONATE 500 MG TAB PO SCH (08:50)
[2018-11-06] MEDS: MEMANTINE 5MG TABLET (NAMENDA) PO SCH (08:50)
[2018-11-06] MEDS: URSODIOL 300 MG CAP PO SCH ×2 (08:50→21:35)
[2018-11-06] MEDS: MULTIVITAMINS/MINERALS THERAP 1 TAB PO SCH (08:50)
[2018-11-06] MEDS: OMEPRAZOLE 20 MG CAP PO SCH ×2 (08:50→21:35)
[2018-11-06] MEDS: SERTRALINE HCL 50 MG TAB PO SCH (08:50)
[2018-11-06] MEDS: ASPIRIN 81 MG ENTERIC TAB PO SCH (08:50)
[2018-11-06] MEDS: NYSTATIN 100,000 UNITS/GM TOPICAL PWD 15 GM TOP SCH ×2 (08:51→21:35)
[2018-11-06] MEDS ORDERED: POTASSIUM CHLORIDE 10 MEQ SR TABLET PO ONE ×2 (09:00→18:00)
[2018-11-06 10:00] VITALS: BP 161/70
--- NOTE | 2018-11-06 11:35 | IPNPDOC ---
Subjective Date Seen The patient was seen on 11/06/18. Subjective Chief Complaint/HPI Patient seen and examined at the bedside. Reports that her appetite is decreased today, but denies any abdominal pain or nausea/vomiting. No acute overnight events noted. Objective Physical Examination General Exam: Positive: Alert, Cooperative, No Acute Distress Eye Exam: Negative: Sclera icteric ENT Exam: Positive: Atraumatic, Mucous membr. moist/pink Neck Exam: Negative: JVD Chest Exam: Positive: Clear to auscultation, Normal air movement Heart Exam: Positive: Rate Normal, Regular Rhythm, Normal S1, Normal S2 Abdomen Exam: Positive: Soft; Negative: Tenderness Extremity Exam: Negative: Tenderness, Swelling Assessment /Plan Plan/VTE VTE Prophylaxis Ordered?: Yes Plan Ascending Cholangitis MRCP on 10/30 notable for moderate intrahepatic and extrahepatic biliary dilatatio n with stones present in the common bile duct s/p ERCP lithotripsy, balloon sweep and common bile duct stent placement on 11/01 LFTs have since trended downward Patient's diet has been advanced, and she is tolerating this w/o any acute complaints We will transition from Zosyn to Levaquin/Flagyl PO for 3 more days We will continue to monitor the patient this time Chronic kidney disease stage III Serum creatinine appears to be at baseline Hypokalemia Supplemental potassium ordered Hypothyroidism Continue levothyroxine Anxiety/depression Continue sertraline, Risperdal Diabetes mellitus Insulin sliding scale ordered Dementia Continue memantine GERD Continue omeprazole DVT prophylaxis Heparin subcutaneous Disposition-pending continued clinical improvement, physical therapy on board for further functional optimization--patient may require STR. PFS on board, will follow up. VS, I&O, 24H, [facility] Vital Signs/I&O Vital Signs Date Time Temp Pulse Resp B/P (MAP) Pulse Ox O2 Delivery O2 Flow Rate FiO2 11/06/18 10:00 97.9 59 17 161/70 (100) 98 11/01/18 17:35 1 I&O- Last 24 Hours up to 6 AM 11/06/18 06:00 Intake Total 1474 ml Output Total 400 ml Balance 1074 ml Laboratory Data 24H LABS Laboratory Tests 2 11/05/18 16:38: Bedside Glucose (Misc Panel) 173H 11/05/18 20:54: Bedside Glucose (Misc Panel) 134H 11/06/18 05:40: Nucleated Red Blood Cells % (auto) 0.0, Anion Gap 8, Glomerular Filtration Rate 45.2, Blood Urea Nitrogen 16, Creatinine 1.21, Sodium Level 138, Potassium Level 3.3L, Chloride Level 109H, Carbon Dioxide Level 21, Calcium Level 8.7L, Aspartate Amino Transf (AST/SGOT) 34, Alanine Aminotransferase (ALT/SGPT) 20, Alkaline Phosphatase 128H, Total Bilirubin 1.3H, Total Protein 5.3L, Albumin 1.7L, Albumin/Globulin Ratio 0.47L 11/06/18 11:20: Bedside Glucose (Misc Panel) 167H CBC/BMP Laboratory Tests 11/06/18 05:40 Red Blood Count 3.03 L, Mean Corpuscular Volume 87.5, Mean Corpuscular Hemoglobin 29.7, Mean Corpuscular Hemoglobin Concent 34.0, Red Cell Distribution Width 16.4 H, Calcium Level 8.7 L, Aspartate Amino Transf (AST/SGOT) 34, Alanine Aminotransferase (ALT/SGPT) 20, Alkaline Phosphatase 128 H, Total Bilirubin 1.3 H, Total Protein 5.3 L, Albumin 1.7 L Microbiology Microbiology 10/29/18 Blood Culture - Final, Complete NO GROWTH AFTER 5 DAYS 10/29/18 Blood Culture - Final, Complete NO GROWTH AFTER 5 DAYS JOHN VAZQUEZ MD Nov 06, 2018 11:35
[2018-11-06] MEDS: metroNIDAZOLE (FLAGYL) 500 MG TAB PO SCH ×2 (13:08→21:35)
[2018-11-06 14:00] VITALS: BP 142/78
[2018-11-06 18:00] VITALS: BP 139/74
[2018-11-06] MEDS: risperiDONE 1 MG TAB PO SCH (21:35)
[2018-11-06 22:00] VITALS: BP 136/78
[2018-11-07] MEDS: LEVOTHYROXINE 125MCG TABLET (0.125MG) PO SCH (05:44)
[2018-11-07] MEDS: metroNIDAZOLE (FLAGYL) 500 MG TAB PO SCH ×3 (05:44→21:13)
[2018-11-07] MEDS: HEPARIN SOD (PORCINE) 5000 UNITS/ML VIAL SC SCH ×3 (05:44→21:13)
[2018-11-07 06:00] VITALS: BP 141/64
[2018-11-07 06:18] LABS: HEMATOCRIT 27.3 % (36.0-47.0); HEMOGLOBIN 9.2 g/dl (12.0-15.5); MEAN CORPUSCULAR HEMOGLOBIN 30.5 pg (27.0-33.0); MEAN CORPUSCULAR HGB CONC 33.7 g/dl (32.0-36.5); MEAN CORPUSCULAR VOLUME 90.4 fl (80.0-96.0); PLATELET COUNT, AUTOMATED 186 10^3/uL (150-450); RED BLOOD COUNT 3.02 10^6/uL (4.00-5.40); WHITE BLOOD COUNT 9.2 10^3/uL (4.0-10.0)
[2018-11-07 06:48] LABS: ALBUMIN 1.6 GM/DL (3.2-5.2); BILIRUBIN,TOTAL 1.3 MG/DL (0.2-1.0); CALCIUM LEVEL 8.3 MG/DL (8.8-10.2); CREATININE FOR GFR 1.06 MG/DL (0.55-1.30); GLOMERULAR FILTRATION RATE 52.7 (>32); POTASSIUM SERUM 3.9 MEQ/L (3.5-5.1); TOTAL PROTEIN 5.2 GM/DL (6.4-8.2)
[2018-11-07] MEDS: MULTIVITAMINS/MINERALS THERAP 1 TAB PO SCH (08:33)
[2018-11-07] MEDS: MAGNESIUM GLUCONATE 500 MG TAB PO SCH (08:33)
[2018-11-07] MEDS: NYSTATIN 100,000 UNITS/GM TOPICAL PWD 15 GM TOP SCH ×2 (08:33→21:13)
[2018-11-07] MEDS: URSODIOL 300 MG CAP PO SCH ×2 (08:33→21:12)
[2018-11-07] MEDS: HumaLOG INSULIN (NovoLOG) PER UNIT SC SCH ×4 (08:34→21:00)
[2018-11-07] MEDS: MEMANTINE 5MG TABLET (NAMENDA) PO SCH (08:34)
[2018-11-07] MEDS: ASPIRIN 81 MG ENTERIC TAB PO SCH (08:34)
[2018-11-07] MEDS: OMEPRAZOLE 20 MG CAP PO SCH ×2 (08:34→21:13)
[2018-11-07] MEDS: SERTRALINE HCL 50 MG TAB PO SCH (08:34)
[2018-11-07 10:00] VITALS: BP 126/59
[2018-11-07 14:00] VITALS: BP 150/66
--- NOTE | 2018-11-07 17:37 | IPNPDOC ---
Subjective Date Seen The patient was seen on 11/07/18. Subjective Chief Complaint/HPI Patient seen and examined at the bedside. States that she is able to tolerate a diet without any abdominal pain or nausea/vomiting. No acute overnight events noted. The patient is continue to work with physical therapy, and will likely need rehabilitation placement. Objective Physical Examination General Exam: Positive: Alert, Cooperative, No Acute Distress Eye Exam: Negative: Sclera icteric ENT Exam: Positive: Atraumatic, Mucous membr. moist/pink Neck Exam: Negative: JVD Chest Exam: Positive: Clear to auscultation, Normal air movement Heart Exam: Positive: Rate Normal, Regular Rhythm, Normal S1, Normal S2 Abdomen Exam: Positive: Soft; Negative: Tenderness Extremity Exam: Negative: Tenderness, Swelling Assessment /Plan Plan/VTE VTE Prophylaxis Ordered?: Yes Plan Ascending Cholangitis MRCP on 10/30 notable for moderate intrahepatic and extrahepatic biliary dilatation with stones present in the common bile duct s/p ERCP lithotripsy, balloon sweep and common bile duct stent placement on 11/01 LFTs have since trended downward Patient's diet has been advanced, and she is tolerating this w/o any acute complaints Levaquin/Flagyl PO for 2 more days We will continue to monitor the patient this time Chronic kidney disease stage III Serum creatinine appears to be at baseline Hypokalemia Supplemental potassium ordered Hypothyroidism Continue levothyroxine Anxiety/depression Continue sertraline, Risperdal Diabetes mellitus Insulin sliding scale ordered Dementia Continue memantine GERD Continue omeprazole DVT prophylaxis Heparin subcutaneous Disposition-pending continued clinical improvement, physical therapy on board for further functional optimization--patient may require STR. PFS on board, will follow up. VS, I&O, 24H, [place] Vital Signs/I&O Vital Signs Date Time Temp Pulse Resp B/P (MAP) Pulse Ox O2 Delivery O2 Flow Rate FiO2 11/07/18 14:00 98.2 63 20 150/66 (94) 98 11/01/18 17:35 1 I&O- Last 24 Hours up to 6 AM 11/07/18 06:00 Intake Total 328 ml Output Total 900 ml Balance -572 ml Laboratory Data 24H LABS Laboratory Tests 2 11/06/18 20:17: Bedside Glucose (Misc Panel) 108 11/07/18 06:01: Nucleated Red Blood Cells % (auto) 0.0, Anion Gap 8, Glomerular Filtration Rate 52.7, Blood Urea Nitrogen 13, Creatinine 1.06, Sodium Level 138, Potassium Level 3.9, Chloride Level 110H, Carbon Dioxide Level 20L, Calcium Level 8.3L, Aspartate Amino Transf (AST/SGOT) 23, Alanine Aminotransferase (ALT/SGPT) 17, Alkaline Phosphatase 133H, Total Bilirubin 1.3H, Total Protein 5.2L, Albumin 1.6L, Albumin/Globulin Ratio 0.44L 11/07/18 11:49: Bedside Glucose (Misc Panel) 132H 11/07/18 16:42: Bedside Glucose (Misc Panel) 126H CBC/BMP Laboratory Tests 11/07/18 06:01 Red Blood Count 3.02 L, Mean Corpuscular Volume 90.4, Mean Corpuscular Hemoglobin 30.5, Mean Corpuscular Hemoglobin Concent 33.7, Red Cell Distribution Width 16.0 H, Calcium Level 8.3 L, Aspartate Amino Transf (AST/SGOT) 23, Alanine Aminotransferase (ALT/SGPT) 17, Alkaline Phosphatase 133 H, Total Bilirubin 1.3 H, Total Protein 5.2 L, Albumin 1.6 L Microbiology Microbiology 10/29/18 Blood Culture - Final, Complete NO GROWTH AFTER 5 DAYS 10/29/18 Blood Culture - Final, Complete NO GROWTH AFTER 5 DAYS JOHN VAZQUEZ MD Nov 07, 2018 17:37
[2018-11-07 18:00] VITALS: BP 133/54
[2018-11-07] MEDS: risperiDONE 1 MG TAB PO SCH (21:13)
[2018-11-07 22:00] VITALS: BP 141/65
[2018-11-08 02:00] VITALS: BP 154/71
[2018-11-08] MEDS: LEVOTHYROXINE 125MCG TABLET (0.125MG) PO SCH (05:55)
[2018-11-08] MEDS: metroNIDAZOLE (FLAGYL) 500 MG TAB PO SCH ×3 (05:55→21:19)
[2018-11-08] MEDS: HEPARIN SOD (PORCINE) 5000 UNITS/ML VIAL SC SCH ×3 (05:55→21:19)
[2018-11-08 06:00] VITALS: BP 157/64
[2018-11-08 06:01] LABS: HEMOGLOBIN 8.7 g/dl (12.0-15.5); MEAN CORPUSCULAR HEMOGLOBIN 29.8 pg (27.0-33.0); MEAN CORPUSCULAR HGB CONC 33.5 g/dl (32.0-36.5); PLATELET COUNT, AUTOMATED 231 10^3/uL (150-450); RED BLOOD COUNT 2.92 10^6/uL (4.00-5.40); WHITE BLOOD COUNT 10.3 10^3/uL (4.0-10.0)
[2018-11-08 06:29] LABS: ALBUMIN 1.8 GM/DL (3.2-5.2); BILIRUBIN,TOTAL 1.1 MG/DL (0.2-1.0); CALCIUM LEVEL 8.7 MG/DL (8.8-10.2); CREATININE FOR GFR 1.12 MG/DL (0.55-1.30); GLOMERULAR FILTRATION RATE 49.5 (>32); POTASSIUM SERUM 3.7 MEQ/L (3.5-5.1); TOTAL PROTEIN 5.4 GM/DL (6.4-8.2)
[2018-11-08] MEDS: MAGNESIUM GLUCONATE 500 MG TAB PO SCH (08:36)
[2018-11-08] MEDS: ASPIRIN 81 MG ENTERIC TAB PO SCH (08:36)
[2018-11-08] MEDS: URSODIOL 300 MG CAP PO SCH ×2 (08:36→21:19)
[2018-11-08] MEDS: MEMANTINE 5MG TABLET (NAMENDA) PO SCH (08:36)
[2018-11-08] MEDS: SERTRALINE HCL 50 MG TAB PO SCH (08:36)
[2018-11-08] MEDS: OMEPRAZOLE 20 MG CAP PO SCH ×2 (08:36→21:19)
[2018-11-08] MEDS: MULTIVITAMINS/MINERALS THERAP 1 TAB PO SCH (08:36)
[2018-11-08] MEDS: HumaLOG INSULIN (NovoLOG) PER UNIT SC SCH ×4 (08:38→21:00)
[2018-11-08] MEDS: NYSTATIN 100,000 UNITS/GM TOPICAL PWD 15 GM TOP SCH ×2 (08:38→21:20)
[2018-11-08 14:00] VITALS: BP 134/62
--- NOTE | 2018-11-08 15:11 | REP ---
Chest x-ray: Two views. History: Shortness of breath. Comparison chest x-ray: October 29, 2018. Findings: The lungs are symmetrically aerated and free of infiltrate. There is blunting of the posterior pleural angles on lateral film suggesting small bilateral pleural effusions. There is linear fibrosis in the left base laterally, unchanged. The heart is enlarged. This is unchanged. There is no evidence of pulmonary edema. 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 Impression: Cardiomegaly. Small bilateral pleural effusions visible on lateral film. No acute infiltrate. Multiple loose bodies at the right shoulder articulation. Electronically Signed by Jeremiah Robledo MD 11/08/2018 03:17 P
--- NOTE | 2018-11-08 17:17 | IPNPDOC ---
Subjective Date Seen The patient was seen on 11/08/18. Subjective Chief Complaint/HPI Patient seen and examined at the bedside. No acute overnight events noted. Objective Physical Examination General Exam: Positive: Alert, Cooperative, No Acute Distress Eye Exam: Negative: Sclera icteric ENT Exam: Positive: Atraumatic, Mucous membr. moist/pink Neck Exam: Negative: JVD Chest Exam: Positive: Clear to auscultation, Normal air movement Heart Exam: Positive: Rate Normal, Regular Rhythm, Normal S1, Normal S2 Abdomen Exam: Positive: Soft; Negative: Tenderness Extremity Exam: Negative: Tenderness, Swelling Assessment /Plan Plan/VTE VTE Prophylaxis Ordered?: Yes Plan Ascending Cholangitis MRCP on 10/30 notable for moderate intrahepatic and extrahepatic biliary dilat ation with stones present in the common bile duct s/p ERCP lithotripsy, balloon sweep and common bile duct stent placement on 11/01 LFTs have since trended downward Patient's diet has been advanced, and she is tolerating this w/o any acute complaints s/p Levaquin/Flagyl We will continue to monitor the patient this time Chronic kidney disease stage III Serum creatinine appears to be at baseline Hypokalemia, resolved Hypothyroidism Continue levothyroxine Anxiety/depression Continue sertraline, Risperdal Diabetes mellitus Insulin sliding scale ordered Dementia Continue memantine GERD Continue omeprazole DVT prophylaxis Heparin subcutaneous Disposition-pending continued clinical improvement, physical therapy on board for further functional optimization--patient may require STR. PFS on board, will follow up. VS, [facility] V[facility] Sign[facility]/I&O Vital Signs Date Time Temp Pulse Resp B/P (MAP) Pulse Ox O2 Delivery O2 Flow Rate FiO2 11/08/18 14:00 97.7 67 19 134/62 (86) 95 I&O- Last 24 Hours up to 6 AM 11/08/18 06:00 Intake Total 660 ml Output Total 0 ml Balance 660 ml Laboratory Data 24H LABS Laboratory Tests 2 11/07/18 20:01: Bedside Glucose (Misc Panel) 117H 11/08/18 05:42: Nucleated Red Blood Cells % (auto) 0.0 11/08/18 05:43: Anion Gap 8, Glomerular Filtration Rate 49.5, Blood Urea Nitrogen 12, Creatinine 1.12, Sodium Level 138, Potassium Level 3.7, Chloride Level 108H, Carbon Dioxide Level 22, Calcium Level 8.7L, Aspartate Amino Transf (AST/SGOT) 18, Alanine Aminotransferase (ALT/SGPT) 19, Alkaline Phosphatase 129H, Total Bilirubin 1.1H, Total Protein 5.4L, Albumin 1.8L, Albumin/Globulin Ratio 0.50L 11/08/18 11:33: Bedside Glucose (Misc Panel) 158H 11/08/18 14:34: Urine Color NITISH, Urine Appearance CLEAR, Urine pH 5.0, Urine Specific [place] 1.017, Urine Protein NEGATIVE, Urine Glucose (UA) NEGATIVE, Urine Ketones NEGA TIVE, Urine Blood NEGATIVE, Urine Nitrite NEGATIVE, Urine Bilirubin NEGATIVE, Urine Urobilinogen 2.0H, Urine Leukocyte Esterase TRACEH, Urine WBC (Auto) 1, Urine RBC (Auto) 1, Urine Hyaline Casts (Auto) 0, Urine Bacteria (Auto) NEGATIVE, Urine Squamous Epithelial Cells 1, Urine Mucus (Auto) SMALL, Urine Sperm (Auto) 11/08/18 16:43: Bedside Glucose (Misc Panel) 163H CBC/BMP Laboratory Tests 11/08/18 05:42 Red Blood Count 2.92 L, Mean Corpuscular Volume 89.0, Mean Corpuscular Hemoglobin 29.8, Mean Corpuscular Hemoglobin Concent 33.5, Red Cell Distribution Width 15.9 H 11/08/18 05:43 Calcium Level 8.7 L, Aspartate Amino Transf (AST/SGOT) 18, Alanine Aminotransferase (ALT/SGPT) 19, Alkaline Phosphatase 129 H, Total Bilirubin 1.1 H, Total Protein 5.4 L, Albumin 1.8 L Microbiology Microbiology 10/29/18 Blood Culture - Final, Complete NO GROWTH AFTER 5 DAYS 10/29/18 Blood Culture - Final, Complete NO GROWTH AFTER 5 DAYS 11/08/18 Urine Culture, Received Pending JOHN VAZQUEZ MD Nov 08, 2018 17:17
[2018-11-08] MEDS: risperiDONE 1 MG TAB PO SCH (21:19)
[2018-11-08 22:00] VITALS: BP 165/67
[2018-11-09] MEDS: HEPARIN SOD (PORCINE) 5000 UNITS/ML VIAL SC SCH ×3 (05:30→21:49)
[2018-11-09] MEDS: LEVOTHYROXINE 125MCG TABLET (0.125MG) PO SCH (05:30)
[2018-11-09] MEDS: metroNIDAZOLE (FLAGYL) 500 MG TAB PO SCH (05:30)
[2018-11-09 06:00] VITALS: BP 151/78
[2018-11-09 06:02] LABS: HEMATOCRIT 28.9 % (36.0-47.0); HEMOGLOBIN 9.7 g/dl (12.0-15.5); MEAN CORPUSCULAR HEMOGLOBIN 30.8 pg (27.0-33.0); MEAN CORPUSCULAR HGB CONC 33.6 g/dl (32.0-36.5); MEAN CORPUSCULAR VOLUME 91.7 fl (80.0-96.0); PLATELET COUNT, AUTOMATED 231 10^3/uL (150-450); RED BLOOD COUNT 3.15 10^6/uL (4.00-5.40); WHITE BLOOD COUNT 11.5 10^3/uL (4.0-10.0)
[2018-11-09 06:39] LABS: BILIRUBIN,TOTAL 1.1 MG/DL (0.2-1.0); CALCIUM LEVEL 8.3 MG/DL (8.8-10.2); CREATININE FOR GFR 1.25 MG/DL (0.55-1.30); GLOMERULAR FILTRATION RATE 43.5 (>32); POTASSIUM SERUM 3.8 MEQ/L (3.5-5.1); TOTAL PROTEIN 5.4 GM/DL (6.4-8.2)
[2018-11-09] MEDS: MULTIVITAMINS/MINERALS THERAP 1 TAB PO SCH (08:10)
[2018-11-09] MEDS: SERTRALINE HCL 50 MG TAB PO SCH (08:10)
[2018-11-09] MEDS: MAGNESIUM GLUCONATE 500 MG TAB PO SCH (08:10)
[2018-11-09] MEDS: OMEPRAZOLE 20 MG CAP PO SCH ×2 (08:10→21:49)
[2018-11-09] MEDS: HumaLOG INSULIN (NovoLOG) PER UNIT SC SCH ×4 (08:11→20:41)
[2018-11-09] MEDS: URSODIOL 300 MG CAP PO SCH ×2 (08:11→21:49)
[2018-11-09] MEDS: ASPIRIN 81 MG ENTERIC TAB PO SCH (08:11)
[2018-11-09] MEDS: MEMANTINE 5MG TABLET (NAMENDA) PO SCH (08:11)
[2018-11-09] MEDS: NYSTATIN 100,000 UNITS/GM TOPICAL PWD 15 GM TOP SCH ×2 (08:16→21:49)
[2018-11-09] MEDS: cefTRIAXone SOD 1 GM in D5W MINI-BAG PLUS 50 ML IV SCH (08:22)
--- NOTE | 2018-11-09 10:10 | IPNPDOC ---
Subjective Date Seen The patient was seen on 11/09/18. Subjective Chief Complaint/HPI Patient seen and examined the bedside. A urinalysis was ordered yesterday after the patient complained of some dysuria. The patient has been started on antibiotic therapy for possible urinary tract infection. Otherwise, patient states that she is feeling well and denies any acute complaints. Objective Physical Examination General Exam: Positive: Alert, Cooperative, No Acute Distress Eye Exam: Negative: Sclera icteric ENT Exam: Positive: Atraumatic, Mucous membr. moist/pink Neck Exam: Negative: JVD Chest Exam: Positive: Clear to auscultation, Normal air movement Heart Exam: Positive: Rate Normal, Regular Rhythm, Normal S1, Normal S2 Abdomen Exam: Positive: Soft; Negative: Tenderness Extremity Exam: Negative: Tenderness, Swelling Assessment /Plan Plan/VTE VTE Prophylaxis Ordered?: Yes Plan Leukocytosis 2/2 UTI Patient with complaints of dysuria, +LE on UA, and elevated WBC Urine Culture pending IV Rocephin started Otherwise, hemodynamically stable, and afebrile We will cont to on IV Abx Ascending Cholangitis MRCP on 10/30 notable for moderate intrahepatic and extrahepatic biliary dilatation with stones present in the common bile duct s/p ERCP lithotripsy, balloon sweep and common bile duct stent placement on 11/01 LFTs have since trended downward Patient's diet has been advanced, and she is tolerating this w/o any acute complaints s/p Levaquin/Flagyl We will continue to monitor the patient this time Chronic kidney disease stage III Serum creatinine appears to be at baseline Hx of Diastolic CHF 2D ECHO from 02/2018 noted Patient with mild SOB on exertion with PT on 11/08/18 F/U CXR revealed mild b/l pleural effusions--the patient did receive a significant amount of IV fluids during this hospitalization due to initial diagnosis of ascending cholangitis. One time dose of PO Lasix ordered--Not on standing dose of diuretic therapy We will cont to monitor the patient's respiratory/volume status Hypokalemia, resolved Hypothyroidism Continue levothyroxine Anxiety/depression Continue sertraline, Risperdal Diabetes mellitus Insulin sliding scale ordered Dementia Continue memantine GERD Continue omeprazole DVT prophylaxis Heparin subcutaneous Disposition-pending continued clinical improvement, physical therapy on board for further functional optimization--patient will require STR. PFS on board, will follow up. VS, I&O, 24H, Fishbone Vital Signs/I&O Vital Signs Date Time Temp Pulse Resp B/P (MAP) Pulse Ox O2 Delivery O2 Flow Rate FiO2 11/09/18 06:00 97.3 67 18 151/78 (102) 96 I&O- Last 24 Hours up to 6 AM 11/09/18 06:00 Intake Total 120 ml Output Total 300 ml Balance -180 ml Laboratory Data 24H LABS Laboratory Tests 2 11/08/18 11:33: Bedside Glucose (Misc Panel) 158H 11/08/18 14:34: Urine Color NITISH, Urine Appearance CLEAR, Urine pH 5.0, Urine Specific [place] 1.017, Urine Protein NEGATIVE, Urine Glucose (UA) NEGATIVE, Urine Ketones NEGATIVE, Urine Blood NEGATIVE, Urine Nitrite NEGATIVE, Urine Bilirubin NEGATIVE, Urine Urobilinogen 2.0H, Urine Leukocyte Esterase TRACEH, Urine WBC (Auto) 1, Urine RBC (Auto) 1, Urine Hyaline Casts (Auto) 0, Urine Bacteria (Auto) NEGATIVE, Urine Squamous Epithelial Cells 1, Urine Mucus (Auto) SMALL, Urine Sperm (Auto) 11/08/18 16:43: Bedside Glucose (Misc Panel) 163H 11/08/18 20:17: Bedside Glucose (Misc Panel) 156H 11/09/18 05:46: Nucleated Red Blood Cells % (auto) 0.2H, Anion Gap 9, Glomerular Filtration Rate 43.5, Blood Urea Nitrogen 12, Creatinine 1.25, Sodium Level 139, Potassium Level 3.8, Chloride Level 108H, Carbon Dioxide Level 22, Calcium Level 8.3L, Aspartate Amino Transf (AST/SGOT) 32, Alanine Aminotransferase (ALT/SGPT) 25, Alkaline Phosphatase 134H, Total Bilirubin 1.1H, Total Protein 5.4L, Albumin 2.0L, Albumin/Globulin Ratio 0.59L CBC/BMP Laboratory Tests 11/09/18 05:46 Red Blood Count 3.15 L, Mean Corpuscular Volume 91.7, Mean Corpuscular Hemoglobin 30.8, Mean Corpuscular Hemoglobin Concent 33.6, Red Cell Distribution Width 15.9 H, Calcium Level 8.3 L, Aspartate Amino Transf (AST/SGOT) 32, Alanine Aminotransferase (ALT/SGPT) 25, Alkaline Phosphatase 134 H, Total Bilirubin 1.1 H, Total Protein 5.4 L, Albumin 2.0 L Microbiology Microbiology 11/08/18 Urine Culture, Received Pending JOHN VAZQUEZ MD Nov 09, 2018 10:10
[2018-11-09] MEDS ORDERED: FUROSEMIDE 40 MG TAB PO ONE (10:15)
[2018-11-09 14:00] VITALS: BP 157/93
[2018-11-09] MEDS: risperiDONE 1 MG TAB PO SCH (21:49)
[2018-11-09 22:00] VITALS: BP 136/64
[2018-11-10] MEDS: LEVOTHYROXINE 125MCG TABLET (0.125MG) PO SCH (05:37)
[2018-11-10] MEDS: HEPARIN SOD (PORCINE) 5000 UNITS/ML VIAL SC SCH ×3 (05:38→21:19)
[2018-11-10 06:00] VITALS: BP 144/68
[2018-11-10 06:35] LABS: HEMATOCRIT 25.6 % (36.0-47.0); HEMOGLOBIN 8.6 g/dl (12.0-15.5); MEAN CORPUSCULAR HEMOGLOBIN 30.2 pg (27.0-33.0); MEAN CORPUSCULAR HGB CONC 33.6 g/dl (32.0-36.5); MEAN CORPUSCULAR VOLUME 89.8 fl (80.0-96.0); PLATELET COUNT, AUTOMATED 247 10^3/uL (150-450); RED BLOOD COUNT 2.85 10^6/uL (4.00-5.40); WHITE BLOOD COUNT 11.9 10^3/uL (4.0-10.0)
[2018-11-10 06:55] LABS: ALBUMIN 1.9 GM/DL (3.2-5.2); CALCIUM LEVEL 8.3 MG/DL (8.8-10.2); CREATININE FOR GFR 1.17 MG/DL (0.55-1.30); GLOMERULAR FILTRATION RATE 46.9 (>32); POTASSIUM SERUM 3.3 MEQ/L (3.5-5.1); TOTAL PROTEIN 5.4 GM/DL (6.4-8.2)
[2018-11-10] MEDS: cefTRIAXone SOD 1 GM in D5W MINI-BAG PLUS 50 ML IV SCH (08:08)
[2018-11-10] MEDS: SERTRALINE HCL 50 MG TAB PO SCH (08:09)
[2018-11-10] MEDS: URSODIOL 300 MG CAP PO SCH ×2 (08:10→21:19)
[2018-11-10] MEDS: OMEPRAZOLE 20 MG CAP PO SCH ×2 (08:10→21:19)
[2018-11-10] MEDS: MULTIVITAMINS/MINERALS THERAP 1 TAB PO SCH (08:10)
[2018-11-10] MEDS: MEMANTINE 5MG TABLET (NAMENDA) PO SCH (08:11)
[2018-11-10] MEDS: MAGNESIUM GLUCONATE 500 MG TAB PO SCH (08:11)
[2018-11-10] MEDS: ASPIRIN 81 MG ENTERIC TAB PO SCH (08:11)
[2018-11-10] MEDS: HumaLOG INSULIN (NovoLOG) PER UNIT SC SCH ×4 (08:12→21:00)
[2018-11-10] MEDS: NYSTATIN 100,000 UNITS/GM TOPICAL PWD 15 GM TOP SCH ×2 (08:12→21:20)
[2018-11-10] MEDS ORDERED: POTASSIUM CHLORIDE 10 MEQ SR TABLET PO ONE (08:15)
[2018-11-10 14:00] VITALS: BP 138/71
--- NOTE | 2018-11-10 14:09 | IPNPDOC ---
Subjective Date Seen The patient was seen on 11/10/18. Subjective Chief Complaint/HPI Patient seen and examined at the bedside. Denies any acute complaints at this time. Objective Physical Examination General Exam: Positive: Alert, Cooperative, No Acute Distress Eye Exam: Negative: Sclera icteric ENT Exam: Positive: Atraumatic, Mucous membr. moist/pink Neck Exam: Negative: JVD Chest Exam: Positive: Clear to auscultation, Normal air movement Heart Exam: Positive: Rate Normal, Regular Rhythm, Normal S1, Normal S2 Abdomen Exam: Positive: Soft; Negative: Tenderness Extremity Exam: Negative: Tenderness, Swelling Assessment /Plan Plan/VTE VTE Prophylaxis Ordered?: Yes Plan Leukocytosis 2/2 UTI Patient with complaints of dysuria, +LE on UA, and elevated WBC Urine Culture unrevealing Cont IV Rocephin Otherwise, hemodynamically stable, and afebrile We will cont to on IV Abx Ascending Cholangitis MRCP on 10/30 notable for moderate intrahepatic and extrahepatic biliary dilatation with stones present in the common bile duct s/p ERCP lithotripsy, balloon sweep and common bile duct stent placement on 11/01 LFTs have since normalized Patient's diet has been advanced, and she is tolerating this w/o any acute complaints s/p Levaquin/Flagyl We will continue to monitor the patient this time Chronic kidney disease stage III Serum creatinine appears to be at baseline Hx of Diastolic CHF 2D ECHO from 02/2018 noted Patient with mild SOB on exertion with PT on 11/08/18 F/U CXR revealed mild b/l pleural effusions--the patient did receive a significant amount of IV fluids during this hospitalization due to initial diagnosis of ascending cholangitis. One time dose of PO Lasix ordered--Not on standing dose of diuretic therapy We will cont to monitor the patient's respiratory/volume status Hypokalemia, resolved Hypothyroidism Continue levothyroxine Anxiety/depression Continue sertraline, Risperdal Diabetes mellitus Insulin sliding scale ordered Dementia Continue memantine GERD Continue omeprazole DVT prophylaxis Heparin subcutaneous Disposition-pending continued clinical improvement, physical therapy on board for further functional optimization--patient will require STR. PFS on board, will follow up. VS, I&O, 24H, Fishbone Vital Signs/I&O Vital Signs Date Time Temp Pulse Resp B/P (MAP) Pulse Ox O2 Delivery O2 Flow Rate FiO2 11/10/18 14:00 97.4 66 17 138/71 (93) 99 I&O- Last 24 Hours up to 6 AM 11/10/18 06:00 Intake Total 486 ml Output Total 300 ml Balance 186 ml Laboratory Data 24H LABS Laboratory Tests 2 11/09/18 16:27: Bedside Glucose (Misc Panel) 121H 11/09/18 20:09: Bedside Glucose (Misc Panel) 142H 11/10/18 06:00: Nucleated Red Blood Cells % (auto) 0.0, Anion Gap 7L, Glomerular Filtration Rate 46.9, Blood Urea Nitrogen 11, Creatinine 1.17, Sodium Level 138, Potassium Level 3.3L, Chloride Level 107, Carbon Dioxide Level 24, Calcium Level 8.3L, Aspartate Amino Transf (AST/SGOT) 26, Alanine Aminotransferase (ALT/SGPT) 18, Alkaline Phosphatase 112, Total Bilirubin 1.0, Total Protein 5.4L, Albumin 1.9L, Albumin/Globulin Ratio 0.54L 11/10/18 08:17: Iron Level 34L, Total Iron Binding Capacity 170L, Transferrin % Saturation 20.0, Ferritin 172 11/10/18 11:38: Bedside Glucose (Misc Panel) 146H CBC/BMP Laboratory Tests 11/10/18 06:00 Red Blood Count 2.85 L, Mean Corpuscular Volume 89.8, Mean Corpuscular Hemoglobin 30.2, Mean Corpuscular Hemoglobin Concent 33.6, Red Cell Distribution Width 15.9 H, Calcium Level 8.3 L, Aspartate Amino Transf (AST/SGOT) 26, Alanine Aminotransferase (ALT/SGPT) 18, Alkaline Phosphatase 112, Total Bilirubin 1.0, Total Protein 5.4 L, Albumin 1.9 L Microbiology Microbiology 11/08/18 Urine Culture - Final, Complete JOHN VAZQUEZ MD Nov 10, 2018 14:09
[2018-11-10] MEDS: FERROUS SULFATE 325MG TAB PO SCH (17:15)
[2018-11-10] MEDS: risperiDONE 1 MG TAB PO SCH (21:19)
[2018-11-10 22:00] VITALS: BP 126/62
[2018-11-11] MEDS: HEPARIN SOD (PORCINE) 5000 UNITS/ML VIAL SC SCH ×3 (05:58→22:09)
[2018-11-11] MEDS: LEVOTHYROXINE 125MCG TABLET (0.125MG) PO SCH (05:58)
[2018-11-11 06:00] VITALS: BP 158/65
[2018-11-11 06:03] LABS: HEMATOCRIT 27.6 % (36.0-47.0); MEAN CORPUSCULAR HEMOGLOBIN 30.5 pg (27.0-33.0); MEAN CORPUSCULAR HGB CONC 32.6 g/dl (32.0-36.5); MEAN CORPUSCULAR VOLUME 93.6 fl (80.0-96.0); PLATELET COUNT, AUTOMATED 269 10^3/uL (150-450); RED BLOOD COUNT 2.95 10^6/uL (4.00-5.40); WHITE BLOOD COUNT 11.2 10^3/uL (4.0-10.0)
[2018-11-11 06:34] LABS: ALBUMIN 1.9 GM/DL (3.2-5.2); BILIRUBIN,TOTAL 0.9 MG/DL (0.2-1.0); CALCIUM LEVEL 8.3 MG/DL (8.8-10.2); CREATININE FOR GFR 1.12 MG/DL (0.55-1.30); GLOMERULAR FILTRATION RATE 49.3 (>32); POTASSIUM SERUM 3.8 MEQ/L (3.5-5.1); TOTAL PROTEIN 5.6 GM/DL (6.4-8.2)
[2018-11-11] MEDS: HumaLOG INSULIN (NovoLOG) PER UNIT SC SCH ×4 (08:47→21:00)
[2018-11-11] MEDS: ASPIRIN 81 MG ENTERIC TAB PO SCH (08:47)
[2018-11-11] MEDS: URSODIOL 300 MG CAP PO SCH ×2 (08:47→22:02)
[2018-11-11] MEDS: OMEPRAZOLE 20 MG CAP PO SCH ×2 (08:47→22:02)
[2018-11-11] MEDS: MULTIVITAMINS/MINERALS THERAP 1 TAB PO SCH (08:47)
[2018-11-11] MEDS: MAGNESIUM GLUCONATE 500 MG TAB PO SCH (08:47)
[2018-11-11] MEDS: FERROUS SULFATE 325MG TAB PO SCH (08:47)
[2018-11-11] MEDS: MEMANTINE 5MG TABLET (NAMENDA) PO SCH (08:47)
[2018-11-11] MEDS: SERTRALINE HCL 50 MG TAB PO SCH (08:48)
[2018-11-11] MEDS: cefTRIAXone SOD 1 GM in D5W MINI-BAG PLUS 50 ML IV SCH ×2 (08:48→09:00)
[2018-11-11] MEDS: NYSTATIN 100,000 UNITS/GM TOPICAL PWD 15 GM TOP SCH ×2 (08:48→22:03)
[2018-11-11] MEDS: CEFDINIR 300 MG CAP (OMNICEF) PO SCH ×2 (09:00→22:02)
[2018-11-11] MEDS: ACETAMINOPHEN TAB 650MG DOSE (2X325MG) PO PRN (11:54)
--- NOTE | 2018-11-11 11:58 | IPNPDOC ---
Subjective Date Seen The patient was seen on 11/11/18. Subjective Chief Complaint/HPI Patient seen and examined at the bedside. Denies any acute overnight events. States that her dysuria has improved. Objective Physical Examination General Exam: Positive: Alert, Cooperative, No Acute Distress Eye Exam: Negative: Sclera icteric ENT Exam: Positive: Atraumatic, Mucous membr. moist/pink Neck Exam: Negative: JVD Chest Exam: Positive: Clear to auscultation, Normal air movement Heart Exam: Positive: Rate Normal, Regular Rhythm, Normal S1, Normal S2 Abdomen Exam: Positive: Soft; Negative: Tenderness Extremity Exam: Negative: Tenderness, Swelling Assessment /Plan Plan/VTE VTE Prophylaxis Ordered?: Yes Plan Leukocytosis 2/2 UTI Patient with complaints of dysuria, +LE on UA, and elevated WBC Urine Culture unrevealing WBC downward trending, Patient otherwise afebrile, and reports improvement of symptoms IV Rocephin transitioned to PO Cefdinir Ascending Cholangitis MRCP on 10/30 notable for moderate intrahepatic and extrahepatic biliary dilatation with stones present in the common bile duct s/p ERCP lithotripsy, balloon sweep and common bile duct stent placement on 11/01 LFTs have since normalized Patient's diet has been advanced, and she is tolerating this w/o any acute complaints s/p Levaquin/Flagyl We will continue to monitor the patient this time Chronic kidney disease stage III Serum creatinine appears to be at baseline Normocytic Anemia No active/overt bleeding noted Iron studies notable for iron deficiency Supplemental Iron ordered No indication for transfusion at this time Hx of Diastolic CHF 2D ECHO from 02/2018 noted Not on standing dose of diuretic therapy We will cont to monitor the patient's respiratory/volume status Hypokalemia, resolved Hypothyroidism Continue levothyroxine Anxiety/depression Continue sertraline, Risperdal Diabetes mellitus Insulin sliding scale ordered Dementia Continue memantine GERD Continue omeprazole DVT prophylaxis Heparin subcutaneous Disposition-pending continued clinical improvement, anticipate D/C tomorrow if the patient remains afebrile with an improving WBC. VS, I&O, 24H, Fishbone Vital Signs/I&O Vital Signs Date Time Temp Pulse Resp B/P (MAP) Pulse Ox O2 Delivery O2 Flow Rate FiO2 11/11/18 06:00 98.3 63 20 158/65 (96) 96 I&O- Last 24 Hours up to 6 AM 11/11/18 06:00 Intake Total 1280 ml Output Total 1300 ml Balance -20 ml Laboratory Data 24H LABS Laboratory Tests 2 11/10/18 16:47: Bedside Glucose (Misc Panel) 134H 11/10/18 20:43: Bedside Glucose (Misc Panel) 165H 11/11/18 05:49: Nucleated Red Blood Cells % (auto) 0.0, Anion Gap 5L, Glomerular Filtration Rate 49.3, Blood Urea Nitrogen 8, Creatinine 1.12, Sodium Level 138, Potassium Level 3.8, Chloride Level 108H, Carbon Dioxide Level 25, Calcium Level 8.3L, Aspartate Amino Transf (AST/SGOT) 24, Alanine Aminotransferase (ALT/SGPT) 18, Alkaline Phosphatase 115, Total Bilirubin 0.9, Total Protein 5.6L, Albumin 1.9L, Albumin/Globulin Ratio 0.51L 11/11/18 11:18: Bedside Glucose (Misc Panel) 188H CBC/BMP Laboratory Tests 11/11/18 05:49 Red Blood Count 2.95 L, Mean Corpuscular Volume 93.6, Mean Corpuscular Hemoglobin 30.5, Mean Corpuscular Hemoglobin Concent 32.6, Red Cell Distribution Width 15.9 H, Calcium Level 8.3 L, Aspartate Amino Transf (AST/SGOT) 24, Alanine Aminotransferase (ALT/SGPT) 18, Alkaline Phosphatase 115, Total Bilirubin 0.9, Total Protein 5.6 L, Albumin 1.9 L Microbiology Microbiology 11/08/18 Urine Culture - Final, Complete JOHN VAZQUEZ MD Nov 11, 2018 11:58
[2018-11-11 14:00] VITALS: BP 130/66
[2018-11-11 22:00] VITALS: BP 141/68
[2018-11-11] MEDS: risperiDONE 1 MG TAB PO SCH (22:02)
[2018-11-12] MEDS: HEPARIN SOD (PORCINE) 5000 UNITS/ML VIAL SC SCH (05:53)
[2018-11-12] MEDS: LEVOTHYROXINE 125MCG TABLET (0.125MG) PO SCH (05:53)
[2018-11-12 06:00] VITALS: BP 176/73
[2018-11-12 06:39] LABS: HEMOGLOBIN 8.7 g/dl (12.0-15.5); MEAN CORPUSCULAR HEMOGLOBIN 30.3 pg (27.0-33.0); MEAN CORPUSCULAR HGB CONC 33.5 g/dl (32.0-36.5); MEAN CORPUSCULAR VOLUME 90.6 fl (80.0-96.0); PLATELET COUNT, AUTOMATED 265 10^3/uL (150-450); RED BLOOD COUNT 2.87 10^6/uL (4.00-5.40); WHITE BLOOD COUNT 11.2 10^3/uL (4.0-10.0)
[2018-11-12 07:07] LABS: ALBUMIN 1.9 GM/DL (3.2-5.2); BILIRUBIN,TOTAL 0.8 MG/DL (0.2-1.0); CALCIUM LEVEL 8.3 MG/DL (8.8-10.2); CREATININE FOR GFR 1.1 MG/DL (0.55-1.30); GLOMERULAR FILTRATION RATE 50.4 (>32); POTASSIUM SERUM 3.8 MEQ/L (3.5-5.1); TOTAL PROTEIN 5.7 GM/DL (6.4-8.2)
[2018-11-12] MEDS: MAGNESIUM GLUCONATE 500 MG TAB PO SCH (08:45)
[2018-11-12] MEDS: MEMANTINE 5MG TABLET (NAMENDA) PO SCH (08:45)
[2018-11-12] MEDS: CEFDINIR 300 MG CAP (OMNICEF) PO SCH (08:45)
[2018-11-12] MEDS: URSODIOL 300 MG CAP PO SCH (08:45)
[2018-11-12] MEDS: FERROUS SULFATE 325MG TAB PO SCH (08:46)
[2018-11-12] MEDS: ASPIRIN 81 MG ENTERIC TAB PO SCH (08:46)
[2018-11-12] MEDS: SERTRALINE HCL 50 MG TAB PO SCH (08:46)
[2018-11-12] MEDS: NYSTATIN 100,000 UNITS/GM TOPICAL PWD 15 GM TOP SCH (08:46)
[2018-11-12] MEDS: OMEPRAZOLE 20 MG CAP PO SCH (08:46)
[2018-11-12] MEDS: MULTIVITAMINS/MINERALS THERAP 1 TAB PO SCH (08:46)
[2018-11-12] MEDS: HumaLOG INSULIN (NovoLOG) PER UNIT SC SCH ×2 (08:46→11:58)
[2018-11-12] MEDS ORDERED: amLODIPine 5 MG TAB PO SCH (09:00)
[2018-11-12] MEDS ORDERED: CEFD300CAP PO (11:15)
[2018-11-12] MEDS ORDERED: FERR325T18 PO (11:15)
[2018-11-12] MEDS ORDERED: Ursodiol PO (11:15)
[2018-11-12] MEDS ORDERED: NYAM10003 TOP (11:15)
[2018-11-12 11:59] VITALS: BP 133/82
[2018-11-12] MEDS ORDERED: NYST1POW9 TOP (12:43)
[2018-11-12] MEDS ORDERED: FERR325T3 PO (12:43)
[2018-11-12] MEDS ORDERED: URSO300C3 PO (12:43)
[2018-11-12] MEDS ORDERED: CEFD1CAP8 PO (12:43)
--- NOTE | 2018-11-12 20:31 | DS.PDOC ---
Discharge Summary General Date of Admission Oct 30, 2018 at 02:52 Date of Discharge 11/12/2018 Specialist/Consultants Involve: Víctor Lobo Jr Specialist/Consultants Involve Dr. Tyler Discharge Summary PROCEDURES PERFORMED DURING STAY: ERCP, with lithotripsy, temporary biliary stent. ADMITTING DIAGNOSES: 1. Ascending cholangitis]. DISCHARGE DIAGNOSES: 1. Ascending cholangitis, resolved, choledocholithiasis, sepsis resolved,Coronary artery disease, [id number] diabetes mellitus, hypothyroidism, Alzheimer's dementia.. COMPLICATIONS/CHIEF COMPLAINT: Cholangitis,Sepsis,Vomiting. HOSPITAL COURSE: This is an 82-year-old female who have been ill with nausea and vomiting at home. She was brought in by her family. She is noted to be febrile and to have elevated liver enzymes. Initial evaluation by ultrasound showed her to have a dilated common bile duct. A 14 mm. Stone was suspected to the distal common bile duct. Concern was raised ascending cholangitis given her appearance of sepsis as well. The patient underwent evaluation by MRCP. This also showed significant common bile duct dilatation and presence of a large 16 mm stone. Additionally, there are at least 5 other stones located as well. There is incidental finding of abdominal aortic aneurysm of 3.8 cm. In any case, with stones identified MRCP. Patient then underwent ERCP. This was intensive with stone sweep, lithotripsy and stent placement. The patient improved with normalization of her white cell count and renal function. She also developed normalization of her liver enzymes and bilirubin. The patient had a prolonged period of debility in the hospital. She was not fully independently ambulatory or tolerant of activity. It was thought she would need to go to [facility]. However, she continued to work with physical and occupational therapy to where she was able to be discharged to home. Recommendations were for home health services, however. Patient has dementia and is oriented principally to self and cannot the left unsupervised.. DISCHARGE MEDICATIONS: Please see below. ALLERGIES: Please see below. PHYSICAL EXAMINATION ON DISCHARGE: VITAL SIGNS: Please see below. GENERAL: Socially pleasant HEENT: Neck was supple, oral mucosa moist CARDIOVASCULAR EXAMINATION: Regular rate and rhythm, no murmur RESPIRATORY EXAMINATION: Clear to auscultation with good air movement and no wheezing ABDOMINAL EXAMINATION: Abdomen is nontender, notable central obesity, nondistended, bowel tones present EXTREMITIES: No peripheral edema and pedal pulses palpable SKIN: No acute lesions or rashes NEUROLOGICAL EXAMINATION: No focal neuromotor or sensory deficits PSYCHIATRIC EXAMINATION: Cognition, judgment and insight are impaired, but otherwise socially pleasant LABORATORY DATA: Please see below. ACTIVITY: As tolerated with supervision. DIET: Consistent carbohydrate DISCHARGE PLAN: The patient will follow up with her primary care provider Marsha Pandey in 1 week. DISPOSITION: 01 Home, with home health DISCHARGE INSTRUCTION DISCHARGE CONDITION: Stable. TIME SPENT ON DISCHARGE: Greater than 45 minutes. Vital Signs/I&Os Vital Signs Date Time Temp Pulse Resp B/P (MAP) Pulse Ox O2 Delivery O2 Flow Rate FiO2 11/12/18 11:59 133/82 11/12/18 06:00 97.5 64 18 95 I&O- Last 24 Hours up to 6 AM 11/12/18 06:00 Intake Total 640 ml Output Total 1050 ml Balance -410 ml Laboratory Data Labs 24H Laboratory Tests 2 11/11/18 20:13: Bedside Glucose (Misc Panel) 123H 11/12/18 04:54: Bedside Glucose (Misc Panel) 133H 11/12/18 06:03: Nucleated Red Blood Cells % (auto) 0.0, Anion Gap 5L, Glomerular Filtration Rate 50.4, Blood Urea Nitrogen 6L, Creatinine 1.10, Sodium Level 138, Potassium Level 3.8, Chloride Level 109H, Carbon Dioxide Level 24, Calcium Level 8.3L, Aspartate Amino Transf (AST/SGOT) 25, Alanine Aminotransferase (ALT/SGPT) 17, Alkaline Phosphatase 106, Total Bilirubin 0.8, Total Protein 5.7L, Albumin 1.9L, Albumin/Globulin Ratio 0.50L CBC/BMP Laboratory Tests 11/12/18 06:03 Red Blood Count 2.87 L, Mean Corpuscular Volume 90.6, Mean Corpuscular Hemoglobin 30.3, Mean Corpuscular Hemoglobin Concent 33.5, Red Cell Distribution Width 16.0 H, Calcium Level 8.3 L, Aspartate Amino Transf (AST/SGOT) 25, Alanine Aminotransferase (ALT/SGPT) 17, Alkaline Phosphatase 106, Total Bilirubin 0.8, Total Protein 5.7 L, Albumin 1.9 L FSBS Laboratory Tests Test 11/11/18 20:13 11/12/18 04:54 Range/Units Bedside Glucose (Misc Panel) 123 133 83-110 MG/DL Microbiology Microbiology 11/08/18 Urine Culture - Final, Complete Discharge Medications Scheduled Aspirin (Aspirin EC) 81 Mg Tablet.dr, 81 MG PO DAILY, (Reported) Cefdinir (Cefdinir) 300 Mg Capsule, 300 MG PO BID Cholecalciferol (Vitamin D3) (Vitamin D3) 2,000 Unit Tab, 2,000 UNIT PO DAILY, (Reported) Cyanocobalamin (Vitamin B-12) (Vitamin B-12) 500 Mcg Tablet, 500 MCG PO DAILY, (Reported) Ferrous Sulfate (Ferrous Sulfate) 325 Mg Tablet.dr, 325 MG PO DAILY Levothyroxine Sodium (Synthroid) 125 Mcg Tablet, 125 MCG PO DAILY, (Reported) Magnesium Gluconate (Magnesium Gluconate) 500 Mg Tab, 500 MG PO DAILY, (Reported) Memantine HCl (Namenda) 10 Mg Tab, 10 MG PO DAILY, (Reported) Multivitamins (Thera M Plus Tablet) 1 Tab Tab, 1 TAB PO DAILY, (Reported) Nystatin (Nystatin Powder) 15 Gm Powder, 1 APLCT TOP BID apply to affected area(s) Omeprazole (Omeprazole) 20 Mg Cap, 20 MG PO BID, (Reported) Risperidone (Risperidone) 1 Mg Tablet, 1 MG PO QHS, (Reported) Sertraline Hcl (Sertraline HCl) 50 Mg Tab, 50 MG PO DAILY, (Reported) Sitagliptin Phosphate (Januvia) 100 Mg Tab, 100 MG PO DAILY, (Reported) Ursodiol (Ursodiol) 300 Mg Capsule, 2 CAP PO BID Scheduled PRN Ondansetron HCl (Ondansetron HCl) 4 Mg Tablet, 4 MG PO Q6H PRN for NAUSEA, (Reported) Allergies Coded Allergies: YURI Inhibitors (Verified Allergy, Intermediate, cough, 10/29/18) FRED LAZCANO MD Nov 12, 2018 20:31
== END 2018-11-12 13:16 | disposition home health service (06) | DRG 871 ==
LOC: M ED 17:50 → EDBD 17:50 → M ED INP 10-30 02:52 → M ICU 10-30 04:11 → M MSPAV 10-30 18:15
PROVIDERS: ADMIT Student in an Organized Health Care Education/Training Program; ATTEND Internal Medicine
PROC: 0F798DZ Dilation of Common Bile Duct with Intraluminal Device, Via Natural or Artificial Opening Endoscopic (ICD-10-PCS; 2018-11-01)
PROC: 0FC98ZZ Extirpation of Matter from Common Bile Duct, Via Natural or Artificial Opening Endoscopic (ICD-10-PCS; principal; 2018-11-01 16:00)
DX: A41.9 Sepsis, unspecified organism (principal); K85.90 Acute pancreatitis without necrosis or infection, unspecified; K80.31 Calculus of bile duct with cholangitis, unspecified, with obstruction; I50.32 Chronic diastolic (congestive) heart failure; K76.6 Portal hypertension; N39.0 Urinary tract infection, site not specified; G30.9 Alzheimer's disease, unspecified; I25.10 Atherosclerotic heart disease of native coronary artery without angina pectoris; D69.6 Thrombocytopenia, unspecified; I25.2 Old myocardial infarction; N18.3 Chronic kidney disease, stage 3 (moderate); E87.6 Hypokalemia; F32.9 Major depressive disorder, single episode, unspecified; F41.9 Anxiety disorder, unspecified; E11.9 Type 2 diabetes mellitus without complications; E03.9 Hypothyroidism, unspecified; E66.01 Morbid (severe) obesity due to excess calories; Z90.49 Acquired absence of other specified parts of digestive tract; Z95.5 Presence of coronary angioplasty implant and graft; Z90.710 Acquired absence of both cervix and uterus; Z79.82 Long term (current) use of aspirin; Z79.899 Other long term (current) drug therapy; Z88.8 Allergy status to other drugs, medicaments and biological substances; Z68.38 Body mass index [BMI] 38.0-38.9, adult

== ENCOUNTER 2018-11-19 14:16 | Emergency (ER) | payer MEDICARE ==
[~2018-11-19] VITALS: Ht 167.6 cm; Wt 100.9 kg
[~2018-11-19 14:16] MED LIST changes: +ASPI-161 PO; +CEFD1CAP8 PO; +CEFD300CAP PO; +CEPH500C PO; +CYAN500T8 PO; +FERR325T18 PO; +FERR325T3 PO; +NYAM10003 TOP; +NYST1POW9 TOP; -OMEP20CA3 PO; +OMEP20CA4 PO; +ONDA4TAB5 PO; +RISP1TAB3 PO; +SYNT125T PO; +URSO300C3 PO; +Ursodiol PO; -VITA500T3 PO; +VITA500T40 PO
[2018-11-19 15:09] LABS: BASO % 0.5 % (0.0-1.0); EOS # 0.2 10^3/uL (0.0-0.50); HEMATOCRIT 29.1 % (36.0-47.0); HEMOGLOBIN 9.4 g/dl (12.0-15.5); MEAN CORPUSCULAR HEMOGLOBIN 30.3 pg (27.0-33.0); MEAN CORPUSCULAR HGB CONC 32.3 g/dl (32.0-36.5); MEAN CORPUSCULAR VOLUME 93.9 fl (80.0-96.0); MONO # 0.5 10^3/uL (0.0-0.8); MONO % 6.8 % (0.0-5.0); NEUTROPHILS # 5.9 10^3/uL (1.8-7.7); PLATELET COUNT, AUTOMATED 213 10^3/uL (150-450); WHITE BLOOD COUNT 7.7 10^3/uL (4.0-10.0)
[2018-11-19] MEDS ORDERED: HYDR-3363 PO (15:28)
[2018-11-19 15:29] LABS: INR 1.09; PROTHROMBIN TIME 13.8 SECONDS (11.8-14.0)
[2018-11-19 15:32] LABS: ALBUMIN 2.1 GM/DL (3.2-5.2); ALT/SGPT 13 U/L (12-78); BILIRUBIN,DIRECT 0.5 MG/DL (0.0-0.2); BILIRUBIN,TOTAL 0.6 MG/DL (0.2-1.0); BLOOD UREA NITROGEN 9 MG/DL (7-18); CALCIUM LEVEL 8.5 MG/DL (8.8-10.2); CARBON DIOXIDE LEVEL 26 MEQ/L (21-32); CHLORIDE LEVEL 104 MEQ/L (98-107); CK-MB VALUE MASS < 1.0 NG/ML (<3.6); CPK CREATINE PHOSPHOKINASE 29 U/L (26-192); CREATININE FOR GFR 1.44 MG/DL (0.55-1.30); GLOMERULAR FILTRATION RATE 36.9 (>32); GLUCOSE, FASTING 142 MG/DL (70-100); LIPASE 229 U/L (73-393); MB/CK RELATIVE INDEX 3.45 (< OR =4); POTASSIUM SERUM 4.1 MEQ/L (3.5-5.1); SODIUM LEVEL 138 MEQ/L (136-145); TOTAL PROTEIN 6.2 GM/DL (6.4-8.2); TROPONIN I < 0.02 NG/ML (< 0.10)
--- NOTE | 2018-11-19 15:56 | REP ---
Clinical: Weakness . Comparison: 11/08/2018 . Technique: PA and lateral. Findings: The mediastinum and cardiac silhouette are normal. Trace fibroatelectatic changes at the left base may represent chronic change. The skeletal structures are intact and normal. Impression: 1. Minimal fibroatelectatic changes at the left base are nonspecific. Electronically Signed by Mic Soto MD 11/19/2018 03:48 P
[2018-11-19] MEDS ORDERED: ISOVUE-370 76% 100ML VIAL (Q9967) As Ordered ONE (16:02)
--- NOTE | 2018-11-19 16:52 | ECGEPIP ---
[facility] - ED Test Date: 2018-11-19 Pat Name: PETERSON VILLALOBOS Department: Room: - Gender: Female [employer] Grader: ct : 1935 Requested By: [place] Order Number: [id number] Reading MD: Génesis Fernandez Measurements Intervals Corder Rate: 69 P: 83 LA: 188 QRS: QRSD: 102 T: 44 QT: 407 QTc: 436 Interpretive Statements SINUS RHYTHM MARKED LEFT AXIS DEVIATION similar to prior EKG 10/29/18 Electronically Signed on 11-19-2018 15:44:13 EDT by Génesis Fernandez
--- NOTE | 2018-11-19 17:00 | REP ---
Clinical: Generalized abdominal pain. Technique: Axial contrast enhanced images from the lung bases to the pubic symphysis using 100 ml Isovue 370 intravenous contrast material. Coronal and sagittal re-formations obtained. Comparison: 11/02/2018. Findings: The current examination again demonstrates the common bile duct stent extending to the duodenum with pneumobilia. There is increased inflammatory stranding within the right upper quadrant surrounding stomach/duodenum, proximal pancreas, carlos a hepatis and liver as well as small amount of ascites extending into the pelvis. Liver demonstrates nodular contour consistent with cirrhosis. Spleen, pancreas, bilateral adrenal glands and kidneys remain relatively stable. Atrophic changes to the bilateral kidneys with simple cysts again noted and no evidence for hydronephrosis. The enteric system is without obstruction or acute inflammatory process. No free air identified. Pelvis demonstrates normal bladder and evidence for prior hysterectomy. Abdominal aorta demonstrates atherosclerotic changes without dissection. Skeletal structures demonstrate degenerative changes without focal osseous abnormality. Lung bases demonstrate mild bibasilar atelectasis. Impression: 1. Findings suggest increased inflammatory changes and minimally increased fluid in the right upper abdomen which require correlation. CBD stent and pneumobilia again noted. 2. Mild bibasilar atelectasis at the lung bases. 3. Further chronic stable changes as described above including cirrhosis, renal atrophic changes and cysts. Electronically Signed by Mic Soto MD 11/19/2018 04:51 P
[2018-11-19 18:29] VITALS: BP 126/58
--- NOTE | 2018-11-25 15:28 | ED PDOC ---
Post-Departure Follow-Up will mercado faxed formal report of ct abd/p for fu Criss Walsh MD Nov 25, 2018 15:28
== END 2018-11-19 19:41 | disposition home or self-care (01) ==
LOC: M ED 14:16
DX: R53.1 Weakness (principal); E11.9 Type 2 diabetes mellitus without complications; G30.9 Alzheimer's disease, unspecified; I25.10 Atherosclerotic heart disease of native coronary artery without angina pectoris; I25.2 Old myocardial infarction; E78.9 Disorder of lipoprotein metabolism, unspecified; E07.9 Disorder of thyroid, unspecified; Z79.899 Other long term (current) drug therapy; Z79.890 Hormone replacement therapy; Z79.82 Long term (current) use of aspirin; Z88.8 Allergy status to other drugs, medicaments and biological substances
CPT/HCPCS: 36415; 51701; 71046; 74177; 80048; 80076; 81001; 82550; 82553; 83690; 84484; 85025; 85610; 85730; 93005; 93041; 99285; Q9967

== ENCOUNTER 2018-12-05 11:41 | Inpatient (IN) | payer MEDICARE ==
[~2018-12-05] VITALS: Ht 167.6 cm; Wt 99.5 kg
--- NOTE | 2018-12-05 12:40 | REP ---
CT BRAIN WITHOUT CONTRAST: HISTORY: Altered mental status. Comparison head CT study October 29, 2018. FINDINGS: Preliminary digital director of business development radiograph is unremarkable. The patient is edentulous. No bony calvarial lesion is seen. Vascular calcification is noted in the distal internal carotid arteries bilaterally. No evidence of paranasal sinus disease is seen. On soft tissue window settings, there is moderate diffuse cerebral atrophy. There is no evidence of intracranial hemorrhage or infarction. No mass or extra-axial fluid collection is seen. There is a small old lacunar infarct in the head of the caudate nucleus on the right. This is unchanged from comparison MRI study March 09, 2018. IMPRESSION: Moderate diffuse atrophy. Vascular calcification. Small vessel changes are again noted. A small old lacunar infarct is seen in the head of the caudate nucleus on the right unchanged. No acute intracranial abnormality. Electronically Signed by Jeremiah Robledo MD 12/05/2018 05:08 P
[2018-12-05] MEDS ORDERED: NS 1,000 ML IV ONE (13:00)
[2018-12-05 13:16] LABS: BASO % 0.4 % (0.0-1.0); EOS # 0.1 10^3/uL (0.0-0.50); EOS % 1.7 % (0.0-3.0); HEMATOCRIT 36.1 % (36.0-47.0); HEMOGLOBIN 11.3 g/dl (12.0-15.5); LYMPH # 1.2 10^3/uL (1.5-4.5); LYMPH % 15.6 % (24.0-44.0); MEAN CORPUSCULAR HEMOGLOBIN 30.7 pg (27.0-33.0); MEAN CORPUSCULAR HGB CONC 31.3 g/dl (32.0-36.5); MEAN CORPUSCULAR VOLUME 98.1 fl (80.0-96.0); MONO # 0.4 10^3/uL (0.0-0.8); MONO % 4.7 % (0.0-5.0); NEUTROPHILS # 5.9 10^3/uL (1.8-7.7); NEUTROPHILS % 77.2 % (36.0-66.0); PLATELET COUNT, AUTOMATED 163 10^3/uL (150-450); RED BLOOD COUNT 3.68 10^6/uL (4.00-5.40); WHITE BLOOD COUNT 7.6 10^3/uL (4.0-10.0)
[2018-12-05 13:45] LABS: ALBUMIN 2.7 GM/DL (3.2-5.2); ALT/SGPT 14 U/L (12-78); BILIRUBIN,DIRECT 0.3 MG/DL (0.0-0.2); BILIRUBIN,TOTAL 0.6 MG/DL (0.2-1.0); BLOOD UREA NITROGEN 15 MG/DL (7-18); CALCIUM LEVEL 9.1 MG/DL (8.8-10.2); CARBON DIOXIDE LEVEL 26 MEQ/L (21-32); CHLORIDE LEVEL 106 MEQ/L (98-107); CK-MB VALUE MASS < 1.0 NG/ML (<3.6); CPK CREATINE PHOSPHOKINASE 64 U/L (26-192); CREATININE FOR GFR 1.49 MG/DL (0.55-1.30); GLOMERULAR FILTRATION RATE 35.5 (>32); GLUCOSE, FASTING 133 MG/DL (70-100); MB/CK RELATIVE INDEX 1.56 (< OR =4); POTASSIUM SERUM 3.9 MEQ/L (3.5-5.1); SODIUM LEVEL 139 MEQ/L (136-145); TOTAL PROTEIN 6.6 GM/DL (6.4-8.2); TROPONIN I < 0.02 NG/ML (< 0.10)
--- NOTE | 2018-12-05 13:52 | REP ---
PORTABLE CHEST: AP portable view of the chest is performed and compared to a prior study of 11/19/2018. The patient is rotated toward the left. There is mild fibroatelectasis in the left costophrenic angle. Otherwise there is no acute infiltrate. Heart and mediastinum are grossly unchanged. Electronically Signed by Gildardo Barron MD 12/06/2018 05:47 P
[2018-12-05 14:25] LABS: OSMOLALITY SERUM 289 MOSM/KG (280-301)
--- NOTE | 2018-12-05 16:00 | HPEPDOC ---
[facility] Medical History & Physical Date of Admission Dec 05, 2018 History and Physical CHIEF COMPLAINT: syncope HISTORY OF PRESENT ILLNESS: 83 yo female presents for syncopal episode occurred around 10:30AM while patient was using toilet. History is provided by son, patient is poor historian secondary to dementia. Son states that she has had p oor appetite for the past several days, and diarrhea for two days. Denies any head trauma. Patient denies any pre-syncopal symptoms, but does not remember passing out. Her son states there was no seizure like activity, or incontinence. A similar episode occurred about two weeks ago, without actual LOC. Her son is not clear but states she has a history of seizure or stroke. PAST MEDICAL HISTORY: # Hx lacunar infarct # recent ascending cholangitis # recent choledocholithiasis # CAD # NIDDM # hypothyroidism # Alzheimer's dementia ALLERGIES: Please see below. REVIEW OF SYSTEMS: Negative except as per HPI. Patient is poor historian. HOME MEDICATIONS: Please see below. PHYSICAL EXAMINATION: VITAL SIGNS: See below GENERAL APPEARANCE: NAD, lying comfortably in bed, elderly HEENT: NC/AT, EOMI, PERRL CARDIOVASCULAR: +S1S2, RRR LUNGS: CTA B/L ABDOMEN: soft, obese, NT, +BS NEUROLOGICAL: CN II-XII grossly in tact, sensation intact throughout, strength 5/5 throughout PSYCHIATRIC: awake, alert, oriented to person only LABORATORY DATA: See below. IMAGING: MICROBIOLOGY: Please see below. ASSESSMENT: 83 yo female for syncopal episode #syncope - telemetry monitoring - check orthostatics - echocardiogram - EEG # Hx lacunar infarct # recent ascending cholangitis # recent choledocholithiasis # CAD # NIDDM # hypothyroidism # Alzheimer's dementia #DVT prophylaxis Vital Signs Vital Signs Date Time Temp Pulse Resp B/P (MAP) Pulse Ox O2 Delivery O2 Flow Rate FiO2 12/05/18 11:55 98.2 69 16 149/70 (96) 98 Room Air Laboratory Data Labs 24H Laboratory Tests 2 12/05/18 12:20: Urine Color NITISH, Urine Appearance CLEAR, Urine pH 5.0, Urine Specific [place] 1.026, Urine Protein 1+H, Urine Glucose (UA) NEGATIVE, Urine Ketones TRACEH, Urine Blood NEGATIVE, Urine Nitrite NEGATIVE, Urine Bilirubin NEGATIVE, Urine Urobilinogen 2.0H, Urine Leukocyte Esterase 2+H, Urine WBC (Auto) 40H, Urine RBC (Auto) 6H, Urine Hyaline Casts (Auto) 0, Urine Bacteria (Auto) 2+H, Urine Squamous Epithelial Cells 1, Urine Calcium Oxalate Cryst (Auto) SMALL, Urine Mucus (Auto) SMALL, Urine Yeast-Like Cells (Auto) SMALLH, Urine Sperm (Auto) 12/05/18 13:04: Immature Granulocyte % (Auto) 0.4, White Blood Count 7.6, Red Blood Count 3.68L, Hemoglobin 11.3L, Hematocrit 36.1, Mean Corpuscular Volume 98.1H, Mean Corpuscular Hemoglobin 30.7, Mean Corpuscular Hemoglobin Concent 31.3L, Red Cell Distribution Width 15.9H, Platelet Count 163, Neutrophils (%) (Auto) 77.2H, Lymphocytes (%) (Auto) 15.6L, Monocytes (%) (Auto) 4.7, Eosinophils (%) (Auto) 1.7, Basophils (%) (Auto) 0.4, Neutrophils # (Auto) 5.9, Lymphocytes # (Auto) 1.2L, Monocytes # (Auto) 0.4, Eosinophils # (Auto) 0.1, Basophils # (Auto) 0.0, Nucleated Red Blood Cells % (auto) 0.0, Lactic Acid Level 2.7*H, Ammonia 11 12/05/18 13:05: Anion Gap 7L, Glomerular Filtration Rate 35.5, Osmolality 289, Calcium Level 9.1, Aspartate Amino Transf (AST/SGOT) 31, Alanine Aminotransferase (ALT/SGPT) 14, Alkaline Phosphatase 130H, Total Bilirubin 0.6, Direct Bilirubin 0.3H, Total Creatine Kinase 64, Creatine Kinase MB < 1.0, Creatine Kinase MB Relative Index 1.56, Troponin I < 0.02, Total Protein 6.6, Albumin 2.7L, Albumin/Globulin Ratio 0.69L, Thyroid Stimulating Hormone (TSH) 2.960 CBC/BMP Laboratory Tests 12/05/18 13:04 Red Blood Count 3.68 L, Mean Corpuscular Volume 98.1 H, Mean Corpuscular Hemoglobin 30.7, Mean Corpuscular Hemoglobin Concent 31.3 L, Red Cell Distribution Width 15.9 H, Neutrophils (%) (Auto) 77.2 H, Lymphocytes (%) (Auto) 15.6 L, Monocytes (%) (Auto) 4.7, Eosinophils (%) (Auto) 1.7, Basophils (%) (Auto) 0.4, Neutrophils # (Auto) 5.9, Lymphocytes # (Auto) 1.2 L, Monocytes # (Auto) 0.4, Eosinophils # (Auto) 0.1, Basophils # (Auto) 0.0 12/05/18 13:05 Microbiology Microbiology 12/05/18 Blood Culture, Received Pending 12/05/18 Blood Culture, Received Pending 12/05/18 Urine Culture, Received Pending Home Medications Scheduled Aspirin (Aspirin EC) 81 Mg Tablet.dr, 81 MG PO DAILY Cholecalciferol (Vitamin D3) (Vitamin D3) 2,000 Unit Tab, 2,000 UNIT PO DAILY Cyanocobalamin (Vitamin B-12) (Vitamin B-12) 500 Mcg Tablet, 1,000 MCG PO DAILY Ferrous Sulfate (Ferrous Sulfate) 325 Mg Tablet.dr, 325 MG PO DAILY Levothyroxine Sodium (Synthroid) 125 Mcg Tablet, 125 MCG PO DAILY Magnesium Gluconate (Magnesium Gluconate) 500 Mg Tab, 500 MG PO DAILY Memantine HCl (Namenda) 10 Mg Tab, 10 MG PO DAILY Omeprazole (Omeprazole) 20 Mg Cap, 40 MG PO DAILY Risperidone (Risperidone) 1 Mg Tablet, 1 MG PO QHS Sertraline Hcl (Sertraline HCl) 50 Mg Tab, 50 MG PO DAILY Sitagliptin Phosphate (Januvia) 100 Mg Tab, 100 MG PO DAILY Ursodiol (Ursodiol) 300 Mg Capsule, 600 MG PO BID Scheduled PRN Loperamide HCl (Imodium A-D) 2 Mg Tablet, 2 MG PO DAILY PRN for DIARRHEA Ondansetron HCl (Ondansetron HCl) 4 Mg Tablet, 4 MG PO Q6H PRN for NAUSEA Allergies Coded Allergies: YURI Inhibitors (Verified Adverse Reaction, Intermediate, cough, 12/05/18) A-FIB/CHADSVASC A-FIB History Current/History of A-Fib/PAF?: No Current PO Anticoag Therapy: CECELIA Ayoub MD Dec 05, 2018 15:15
[2018-12-05] MEDS ORDERED: FERR325T3 PO (16:02)
[2018-12-05] MEDS ORDERED: URSO300C3 PO (16:02)
[2018-12-05] MEDS ORDERED: LOPE2TAB11 PO (16:03)
[2018-12-05] MEDS ORDERED: ONDANSETRON 4 MG TAB (S0181) PO PRN (16:30)
[2018-12-05] MEDS: NS 1,000 ML IV SCH (18:05)
[2018-12-05 18:20] VITALS: BP 150/62
[2018-12-05 18:37] VITALS: BP_SYST 142; BP_SYST 148; BP_SYST 150; BP_DIAS 62; BP_DIAS 66; BP_DIAS 76
--- NOTE | 2018-12-05 19:28 | ECGEPIP ---
[facility] - ED Test Date: 2018-12-05 Pat Name: PETERSON VILLALOBOS Department: Room: - Gender: Female Automatic Pattern Edger: : 1935 Requested By: Génesis Fernandez Order Number: [id number] Reading MD: Génesis Fernandez Measurements Intervals [place] Rate: 65 P: 90 MS: 201 QRS: QRSD: 106 T: 46 QT: 418 QTc: 436 Interpretive Statements SINUS RHYTHM PATTERN CONSISTENT WITH PULMONARY DISEASE LEFT ANTERIOR FASCICULAR BLOCK SIMILAR 11/19/18 Electronically Signed on 12-05-2018 19:28:15 EDT by Génesis Fernandez
[2018-12-05 20:00] VITALS: BP 124/64
[2018-12-05] MEDS: risperiDONE 1 MG TAB PO SCH (20:41)
[2018-12-05] MEDS: URSODIOL 300 MG CAP PO SCH (20:41)
[2018-12-05 23:59] VITALS: BP 140/60
[2018-12-06] VITALS (10 sets, daily range): BP systolic 118–172; BP diastolic 60–80
[2018-12-06] MEDS: NS 1,000 ML IV SCH ×3 (02:54→22:31)
[2018-12-06 05:41] LABS: BASO % 0.7 % (0.0-1.0); EOS # 0.3 10^3/uL (0.0-0.50); EOS % 4.8 % (0.0-3.0); HEMATOCRIT 29.7 % (36.0-47.0); HEMOGLOBIN 9.4 g/dl (12.0-15.5); LYMPH # 1.4 10^3/uL (1.5-4.5); LYMPH % 25.5 % (24.0-44.0); MEAN CORPUSCULAR HEMOGLOBIN 30.4 pg (27.0-33.0); MEAN CORPUSCULAR HGB CONC 31.6 g/dl (32.0-36.5); MEAN CORPUSCULAR VOLUME 96.1 fl (80.0-96.0); MONO # 0.4 10^3/uL (0.0-0.8); MONO % 6.7 % (0.0-5.0); NEUTROPHILS # 3.3 10^3/uL (1.8-7.7); NEUTROPHILS % 61.9 % (36.0-66.0); PLATELET COUNT, AUTOMATED 153 10^3/uL (150-450); RED BLOOD COUNT 3.09 10^6/uL (4.00-5.40); WHITE BLOOD COUNT 5.4 10^3/uL (4.0-10.0)
[2018-12-06] MEDS: LEVOTHYROXINE 125MCG TABLET (0.125MG) PO SCH (05:43)
[2018-12-06 06:04] LABS: ALBUMIN 2.1 GM/DL (3.2-5.2); BILIRUBIN,TOTAL 0.5 MG/DL (0.2-1.0); CALCIUM LEVEL 8.1 MG/DL (8.8-10.2); CREATININE FOR GFR 1.33 MG/DL (0.55-1.30); GLOMERULAR FILTRATION RATE 40.5 (>32); POTASSIUM SERUM 3.6 MEQ/L (3.5-5.1); TOTAL PROTEIN 5.7 GM/DL (6.4-8.2)
[2018-12-06] MEDS: VITAMIN D 1,000 INTERNATIONAL UNITS TABLET PO SCH (10:17)
[2018-12-06] MEDS: URSODIOL 300 MG CAP PO SCH ×2 (10:17→21:06)
[2018-12-06] MEDS: ASPIRIN 81 MG ENTERIC TAB PO SCH (10:18)
[2018-12-06] MEDS: SITagliptin 50 MG TAB (JANUVIA) PO SCH (10:18)
[2018-12-06] MEDS: OMEPRAZOLE 20 MG CAP PO SCH (10:18)
[2018-12-06] MEDS: SERTRALINE HCL 50 MG TAB PO SCH (10:18)
[2018-12-06] MEDS: FERROUS SULFATE 325MG TAB PO SCH (10:18)
[2018-12-06] MEDS: MAGNESIUM GLUCONATE 500 MG TAB PO SCH (10:25)
[2018-12-06] MEDS: MEMANTINE 5MG TABLET (NAMENDA) PO SCH (10:26)
--- NOTE | 2018-12-06 11:45 | IPNPDOC ---
Text Note Date of Service The patient was seen on 12/06/18. NOTE Subjective: Patient seen and examined at bedside. No acute overnight events reported. Patient has no new medical complaints this morning. PHYSICAL EXAMINATION: VITAL SIGNS: See below GENERAL APPEARANCE: NAD, lying comfortably in bed, elderly HEENT: NC/AT, EOMI, PERRL CARDIOVASCULAR: +S1S2, RRR LUNGS: CTA B/L ABDOMEN: soft, obese, NT, +BS NEUROLOGICAL: CN II-XII grossly in tact, sensation intact throughout, strength 5/5 throughout PSYCHIATRIC: awake, alert, oriented to person only ASSESSMENT: 83 yo female for syncopal episode, and diarrhea. #syncope - telemetry monitoring - check orthostatics - echocardiogram - EEG #diarrhea - stool studies pending # Hx lacunar infarct # recent ascending cholangitis # recent choledocholithiasis # CAD # NIDDM # hypothyroidism # Alzheimer's dementia #DVT prophylaxis ADDENDUM: CDiff + , started dificid VS,Fishbone, I+O VS, Fishbone, I+O Laboratory Tests 12/05/18 13:04 Red Blood Count 3.68 L, Mean Corpuscular Volume 98.1 H, Mean Corpuscular Hemoglobin 30.7, Mean Corpuscular Hemoglobin Concent 31.3 L, Red Cell Distribution Width 15.9 H, Neutrophils (%) (Auto) 77.2 H, Lymphocytes (%) (Auto) 15.6 L, Monocytes (%) (Auto) 4.7, Eosinophils (%) (Auto) 1.7, Basophils (%) (Auto) 0.4, Neutrophils # (Auto) 5.9, Lymphocytes # (Auto) 1.2 L, Monocytes # (Auto) 0.4, Eosinophils # (Auto) 0.1, Basophils # (Auto) 0.0 12/05/18 13:05 12/06/18 05:15 Red Blood Count 3.09 L, Mean Corpuscular Volume 96.1 H, Mean Corpuscular Hemoglobin 30.4, Mean Corpuscular Hemoglobin Concent 31.6 L, Red Cell Distribution Width 15.9 H, Neutrophils (%) (Auto) 61.9, Lymphocytes (%) (Auto) 25.5, Monocytes (%) (Auto) 6.7 H, Eosinophils (%) (Auto) 4.8 H, Basophils (%) (Auto) 0.7, Neutrophils # (Auto) 3.3, Lymphocytes # (Auto) 1.4 L, Monocytes # (Auto) 0.4, Eosinophils # (Auto) 0.3, Basophils # (Auto) 0.0, Calcium Level 8.1 L, Aspartate Amino Transf (AST/SGOT) 22, Alanine Aminotransferase (ALT/SGPT) 11 L, Alkaline Phosphatase 105, Total Bilirubin 0.5, Total Protein 5.7 L, Albumin 2.1 #L Vital Signs Date Time Temp Pulse Resp B/P (MAP) Pulse Ox O2 Delivery O2 Flow Rate FiO2 12/06/18 08:22 67 156/67 (96) 59 148/67 (94) 76 144/62 (89) 12/06/18 08:00 96.5 17 95 12/05/18 11:55 Room Air I&O- Last 24 Hours up to 6 AM 12/06/18 06:00 Intake Total 1300 ml Output Total 0 ml Balance 1300 ml CECELIA BADILLO MD Dec 06, 2018 11:45
[2018-12-06 13:04] LABS: CLOSTRIDIUM DIFFICILE PCR POSITIVE (NEGATIVE)
[2018-12-06] MEDS: LACTOBACILLUS ACIDOPHILUS CAP (BACID) PO SCH ×2 (14:22→18:05)
[2018-12-06] MEDS: FIDAXOMICIN 200 MG TAB (DIFICID) PO SCH ×2 (16:36→21:06)
[2018-12-06] MEDS: risperiDONE 1 MG TAB PO SCH (21:06)
--- NOTE | 2018-12-06 23:49 | EEG ---
DATE OF PROCEDURE: 12/06/2018 REFERRING PHYSICIAN: Dr. Sharad Aceves EEG NUMBER: [id number] DIAGNOSIS: Syncope versus seizure. HISTORY: The patient is an 83-year-old woman who was admitted after a passing out spell while using the toilet. No shaking or urinary incontinence was noted. This EEG was done to rule out epileptic potential. She is currently taking Lasix, levothyroxine, Prilosec, Zoloft, Januvia, aspirin, risperidone. TECHNICAL DESCRIPTION: This digital EEG was recorded by 21 scalp, ear and two EKG electrodes and was reviewed in bipolar and referential montages following reformatting in 10-20 international electrode placement system. INTERPRETATION: The patient remained drowsy throughout this EEG. Resting awake background rhythm consisted of 6-7 Hz theta activity, which was symmetric bilaterally. Hyperventilation could not be performed. Photic stimulation remained unremarkable. Stage I and II sleep were reviewed and were symmetric bilaterally. No focal, lateralizing or epileptiform abnormalities were seen. No clinical or electrographic seizures were recorded. CONCLUSION: This EEG in drowsy state, stage I and II sleep is abnormal due to presence of mild generalized slowing and disorganization of background consistent with mild nonspecific diffuse cerebral dysfunction such as seen in encephalopathy due to multiple potential causes. No focal or epileptiform abnormalities were seen. Clinical correlation is recommended.
[2018-12-06] MEDS: NYSTATIN 100,000 UNITS/GM TOPICAL PWD 15 GM TOP SCH (23:58)
[2018-12-07 04:00] VITALS: BP 130/64
[2018-12-07] MEDS: LEVOTHYROXINE 125MCG TABLET (0.125MG) PO SCH (05:09)
[2018-12-07 06:09] LABS: BASO % 0.8 % (0.0-1.0); EOS # 0.3 10^3/uL (0.0-0.50); EOS % 5.6 % (0.0-3.0); HEMATOCRIT 31.4 % (36.0-47.0); HEMOGLOBIN 9.9 g/dl (12.0-15.5); LYMPH # 1.6 10^3/uL (1.5-4.5); LYMPH % 30.2 % (24.0-44.0); MEAN CORPUSCULAR HEMOGLOBIN 29.8 pg (27.0-33.0); MEAN CORPUSCULAR HGB CONC 31.5 g/dl (32.0-36.5); MEAN CORPUSCULAR VOLUME 94.6 fl (80.0-96.0); MONO # 0.4 10^3/uL (0.0-0.8); MONO % 8.1 % (0.0-5.0); NEUTROPHILS # 2.9 10^3/uL (1.8-7.7); NEUTROPHILS % 54.9 % (36.0-66.0); PLATELET COUNT, AUTOMATED 148 10^3/uL (150-450); RED BLOOD COUNT 3.32 10^6/uL (4.00-5.40); WHITE BLOOD COUNT 5.3 10^3/uL (4.0-10.0)
[2018-12-07 06:37] LABS: ALBUMIN 2.1 GM/DL (3.2-5.2); BILIRUBIN,TOTAL 0.4 MG/DL (0.2-1.0); CALCIUM LEVEL 8.4 MG/DL (8.8-10.2); CREATININE FOR GFR 1.16 MG/DL (0.55-1.30); GLOMERULAR FILTRATION RATE 47.4 (>32); POTASSIUM SERUM 3.6 MEQ/L (3.5-5.1); TOTAL PROTEIN 5.7 GM/DL (6.4-8.2)
[2018-12-07 08:00] VITALS: BP 160/68
[2018-12-07] MEDS: FIDAXOMICIN 200 MG TAB (DIFICID) PO SCH ×2 (08:06→20:03)
[2018-12-07] MEDS: VITAMIN D 1,000 INTERNATIONAL UNITS TABLET PO SCH (08:06)
[2018-12-07] MEDS: OMEPRAZOLE 20 MG CAP PO SCH (08:06)
[2018-12-07] MEDS: MAGNESIUM GLUCONATE 500 MG TAB PO SCH (08:06)
[2018-12-07] MEDS: MEMANTINE 5MG TABLET (NAMENDA) PO SCH (08:07)
[2018-12-07] MEDS: SERTRALINE HCL 50 MG TAB PO SCH (08:07)
[2018-12-07] MEDS: LACTOBACILLUS ACIDOPHILUS CAP (BACID) PO SCH ×3 (08:07→17:13)
[2018-12-07] MEDS: URSODIOL 300 MG CAP PO SCH ×2 (08:07→20:03)
[2018-12-07] MEDS: FERROUS SULFATE 325MG TAB PO SCH (08:07)
[2018-12-07] MEDS: SITagliptin 50 MG TAB (JANUVIA) PO SCH (08:07)
[2018-12-07] MEDS: ASPIRIN 81 MG ENTERIC TAB PO SCH (08:07)
[2018-12-07] MEDS: NYSTATIN 100,000 UNITS/GM TOPICAL PWD 15 GM TOP SCH ×2 (08:08→20:04)
--- NOTE | 2018-12-07 08:22 | IPNPDOC ---
Text Note Date of Service The patient was seen on 12/07/18. NOTE Subjective: Patient seen at bedside. No acute overnight events reported. Patient has no new medical complaints this morning. PHYSICAL EXAMINATION: VITAL SIGNS: See below GENERAL APPEARANCE: NAD, lying comfortably in bed, elderly HEENT: NC/AT, EOMI, PERRL CARDIOVASCULAR: +S1S2, RRR LUNGS: CTA B/L ABDOMEN: soft, obese, NT, +BS ASSESSMENT: 83 yo female for syncopal episode, and diarrhea found to be CDiff positive. #syncope - telemetry monitoring - iv fluids - check orthostatics - echocardiogram - EEG completed #Cdiff/diarrhea - iv fluids - continue dificid and lactobacillus # Hx lacunar infarct # recent ascending cholangitis # recent choledocholithiasis # CAD # NIDDM # hypothyroidism # Alzheimer's dementia #DVT prophylaxis - mechanical VS,Fishbone, I+O VS, Fishbone, I+O Laboratory Tests 12/07/18 05:28 Red Blood Count 3.32 L, Mean Corpuscular Volume 94.6, Mean Corpuscular Hemoglobin 29.8, Mean Corpuscular Hemoglobin Concent 31.5 L, Red Cell Distribution Width 15.8 H, Neutrophils (%) (Auto) 54.9, Lymphocytes (%) (Auto) 30.2, Monocytes (%) (Auto) 8.1 H, Eosinophils (%) (Auto) 5.6 H, Basophils (%) (Auto) 0.8, Neutrophils # (Auto) 2.9, Lymphocytes # (Auto) 1.6, Monocytes # (Auto) 0.4, Eosinophils # (Auto) 0.3, Basophils # (Auto) 0.0, Calcium Level 8.4 L, Aspartate Amino Transf (AST/SGOT) 27, Alanine Aminotransferase (ALT/SGPT) 13, Alkaline Phosphatase 102, Total Bilirubin 0.4, Total Protein 5.7 L, Albumin 2.1 L Vital Signs Date Time Temp Pulse Resp B/P (MAP) Pulse Ox O2 Delivery O2 Flow Rate FiO2 12/07/18 04:00 97.1 69 18 130/64 (86) 98 12/05/18 11:55 Room Air I&O- Last 24 Hours up to 6 AM 12/07/18 06:00 Intake Total 2165 ml Output Total 1 ml Balance 2164 ml CECELIA BADILLO MD Dec 07, 2018 08:22
[2018-12-07] MEDS: NS 1,000 ML IV SCH ×2 (08:29→17:37)
[2018-12-07 12:00] VITALS: BP 130/64
[2018-12-07] MEDS ORDERED: hydrOXYzine 10 MG TAB PO PRN (13:00)
[2018-12-07 16:00] VITALS: BP 126/60
[2018-12-07 20:00] VITALS: BP 151/69
[2018-12-07] MEDS: risperiDONE 1 MG TAB PO SCH (20:03)
[2018-12-07 23:59] VITALS: BP 150/65
[2018-12-08 04:00] VITALS: BP 151/67
[2018-12-08] MEDS: LEVOTHYROXINE 125MCG TABLET (0.125MG) PO SCH (05:13)
[2018-12-08 05:35] LABS: BASO % 0.6 % (0.0-1.0); EOS # 0.3 10^3/uL (0.0-0.50); EOS % 5.9 % (0.0-3.0); HEMATOCRIT 31.8 % (36.0-47.0); LYMPH # 1.5 10^3/uL (1.5-4.5); LYMPH % 28.2 % (24.0-44.0); MEAN CORPUSCULAR HEMOGLOBIN 29.2 pg (27.0-33.0); MEAN CORPUSCULAR HGB CONC 31.4 g/dl (32.0-36.5); MONO # 0.3 10^3/uL (0.0-0.8); MONO % 6.4 % (0.0-5.0); NEUTROPHILS # 3.1 10^3/uL (1.8-7.7); NEUTROPHILS % 58.5 % (36.0-66.0); PLATELET COUNT, AUTOMATED 156 10^3/uL (150-450); RED BLOOD COUNT 3.42 10^6/uL (4.00-5.40); WHITE BLOOD COUNT 5.3 10^3/uL (4.0-10.0)
[2018-12-08 06:03] LABS: ALBUMIN 2.2 GM/DL (3.2-5.2); BILIRUBIN,TOTAL 0.4 MG/DL (0.2-1.0); CALCIUM LEVEL 8.5 MG/DL (8.8-10.2); CREATININE FOR GFR 1.18 MG/DL (0.55-1.30); GLOMERULAR FILTRATION RATE 46.5 (>32); POTASSIUM SERUM 3.7 MEQ/L (3.5-5.1); TOTAL PROTEIN 5.9 GM/DL (6.4-8.2)
[2018-12-08 08:00] VITALS: BP 126/66
[2018-12-08] MEDS: LACTOBACILLUS ACIDOPHILUS CAP (BACID) PO SCH ×3 (08:46→17:04)
[2018-12-08] MEDS: VITAMIN D 1,000 INTERNATIONAL UNITS TABLET PO SCH (08:46)
[2018-12-08] MEDS: ASPIRIN 81 MG ENTERIC TAB PO SCH (08:46)
[2018-12-08] MEDS: FERROUS SULFATE 325MG TAB PO SCH (08:46)
[2018-12-08] MEDS: FIDAXOMICIN 200 MG TAB (DIFICID) PO SCH ×2 (08:46→20:42)
[2018-12-08] MEDS: MEMANTINE 5MG TABLET (NAMENDA) PO SCH (08:46)
[2018-12-08] MEDS: URSODIOL 300 MG CAP PO SCH ×2 (08:46→20:42)
[2018-12-08] MEDS: SITagliptin 50 MG TAB (JANUVIA) PO SCH (08:46)
[2018-12-08] MEDS: OMEPRAZOLE 20 MG CAP PO SCH (08:47)
[2018-12-08] MEDS: MAGNESIUM GLUCONATE 500 MG TAB PO SCH (08:47)
[2018-12-08] MEDS: NYSTATIN 100,000 UNITS/GM TOPICAL PWD 15 GM TOP SCH ×2 (08:47→20:42)
[2018-12-08] MEDS: SERTRALINE HCL 50 MG TAB PO SCH (08:47)
--- NOTE | 2018-12-08 08:58 | IPNPDOC ---
Text Note Date of Service The patient was seen on 12/08/18. NOTE Subjective: Patient seen at bedside. No acute overnight events reported. Patient has no new medical complaints this morning. Today she states she feels dizzy when she doesn't eat properly. PHYSICAL EXAMINATION: VITAL SIGNS: See below GENERAL APPEARANCE: NAD, sitting comfortably in chair, elderly HEENT: NC/AT, EOMI, PERRL CARDIOVASCULAR: +S1S2, RRR LUNGS: CTA B/L ABDOMEN: soft, obese, NT, +BS ASSESSMENT: 83 yo female for syncopal episode, and diarrhea found to be CDiff po sitive. #syncope - no events on tele - iv fluids - check orthostatics - echocardiogram pending - EEG completed #Cdiff/diarrhea - iv fluids - continue dificid and lactobacillus #gait dysfunction - continue with PT # Hx lacunar infarct # recent ascending cholangitis # recent choledocholithiasis # CAD # NIDDM # hypothyroidism # Alzheimer's dementia #DVT prophylaxis - mechanical Dispo: pending further PT, discharge planning VS,Fishbone, I+O VS, Fishbone, I+O Laboratory Tests 12/08/18 05:08 Red Blood Count 3.42 L, Mean Corpuscular Volume 93.0, Mean Corpuscular Hemoglobin 29.2, Mean Corpuscular Hemoglobin Concent 31.4 L, Red Cell Distribution Width 15.9 H, Neutrophils (%) (Auto) 58.5, Lymphocytes (%) (Auto) 28.2, Monocytes (%) (Auto) 6.4 H, Eosinophils (%) (Auto) 5.9 H, Basophils (%) (Auto) 0.6, Neutrophils # (Auto) 3.1, Lymphocytes # (Auto) 1.5, Monocytes # (Auto) 0.3, Eosinophils # (Auto) 0.3, Basophils # (Auto) 0.0, Calcium Level 8.5 L, Aspartate Amino Transf (AST/SGOT) 43 H, Alanine Aminotransferase (ALT/SGPT) 16, Alkaline Phosphatase 108, Total Bilirubin 0.4, Total Protein 5.9 L, Albumin 2.2 L Vital Signs Date Time Temp Pulse Resp B/P (MAP) Pulse Ox O2 Delivery O2 Flow Rate FiO2 12/08/18 08:00 96.9 64 18 126/66 (86) 99 12/05/18 11:55 Room Air I&O- Last 24 Hours up to 6 AM 12/08/18 06:00 Intake Total 2580 ml Output Total 1300 ml Balance 1280 ml CECELIA BADILLO MD Dec 08, 2018 08:58
[2018-12-08 12:00] VITALS: BP 128/58
[2018-12-08] MEDS: NS 1,000 ML IV SCH (14:12)
[2018-12-08 18:00] VITALS: BP 126/66
[2018-12-08] MEDS ORDERED: SLF 3 ML SYR IV PRN (18:30)
[2018-12-08 20:00] VITALS: BP 170/72
[2018-12-08] MEDS: risperiDONE 1 MG TAB PO SCH (20:42)
[2018-12-08 21:30] VITALS: BP 164/76
[2018-12-08] MEDS: SLF 3 ML SYR IV SCH (22:01)
[2018-12-09] VITALS (7 sets, daily range): BP systolic 127–140; BP diastolic 58–80
[2018-12-09 05:58] LABS: BASO % 0.6 % (0.0-1.0); EOS # 0.3 10^3/uL (0.0-0.50); EOS % 6.3 % (0.0-3.0); HEMATOCRIT 30.6 % (36.0-47.0); HEMOGLOBIN 9.9 g/dl (12.0-15.5); LYMPH # 1.5 10^3/uL (1.5-4.5); LYMPH % 28.7 % (24.0-44.0); MEAN CORPUSCULAR HEMOGLOBIN 30.7 pg (27.0-33.0); MEAN CORPUSCULAR HGB CONC 32.4 g/dl (32.0-36.5); MEAN CORPUSCULAR VOLUME 94.7 fl (80.0-96.0); MONO # 0.4 10^3/uL (0.0-0.8); MONO % 7.4 % (0.0-5.0); NEUTROPHILS % 56.6 % (36.0-66.0); PLATELET COUNT, AUTOMATED 139 10^3/uL (150-450); RED BLOOD COUNT 3.23 10^6/uL (4.00-5.40); WHITE BLOOD COUNT 5.4 10^3/uL (4.0-10.0)
[2018-12-09] MEDS: LEVOTHYROXINE 125MCG TABLET (0.125MG) PO SCH (05:59)
[2018-12-09] MEDS: SLF 3 ML SYR IV SCH ×3 (06:00→21:25)
[2018-12-09 06:24] LABS: ALBUMIN 2.1 GM/DL (3.2-5.2); BILIRUBIN,TOTAL 0.4 MG/DL (0.2-1.0); CALCIUM LEVEL 8.3 MG/DL (8.8-10.2); CREATININE FOR GFR 1.16 MG/DL (0.55-1.30); GLOMERULAR FILTRATION RATE 47.4 (>32); POTASSIUM SERUM 3.6 MEQ/L (3.5-5.1); TOTAL PROTEIN 5.7 GM/DL (6.4-8.2)
--- NOTE | 2018-12-09 08:13 | ECHO ---
DATE OF PROCEDURE: 12/07/2018 DATE OF : 1935 AGE: 83 GENDER: Female HEIGHT: 66 inches WEIGHT: 213 pounds BODY SURFACE AREA: 2.05 m2 INPATIENT: PCU Room 3212 REFERRING PHYSICIAN: Dr. Sharad Aceves INDICATION: Syncope. MEASUREMENTS: 2-D Measurements: RV: 2.9 cm LV: 4.6 cm Septum: 1.3 cm Posterior wall: 1.3 cm Aortic root: 3.5 cm LA: 4.5 cm LVEF: 70% Doppler Measurements: AV: 1.53 m/s LVOT: 0.96 m/s LVOT diameter: 2.1 cm MV - E: 106, A: 95, EA ratio: 1.6 Early mitral deceleration time: 220 ms E prime: 6.7, A prime: 9, E/E prime ratio: 15.8 PCWP: 19.9 mmHg PV: 0.8 m/s Pulmonary artery acceleration time: 140 ms RVSP: 27 mmHg IVC: Not well visualized. COMMENTS: Sinus bradycardia without intraventricular conduction disturbance. Technically challenging study in light of the patient's body habitus but diagnostically useful information was still obtained. M-mode and two-dimensional echocardiography was performed with pulsed, continuous wave, color flow and tissue Doppler studies. Mild concentric left ventricle hypertrophy with hyperkinetic wall motion. Mildly dilated left atrium with impairment of LV diastolic function and elevated estimated mean left atrial pressure. Normal right heart chamber sizes and motion and estimated pulmonary arterial pressure. Her inferior vena cava could not be well visualized to estimate central venous pressure. Aortic valvular sclerosis without stenosis but mild insufficiency. Normal aortic root size. Mild degenerative changes of the mitral valvular apparatus without inflow tract obstruction and only mild insufficiency. Normal appearing tricuspid valve with only trace to mild insufficiency. No apparent intracardiac mass or pericardial effusion. The above test findings did not appear to be significantly changed from those described 03/09/2018. [facility]
[2018-12-09] MEDS: SITagliptin 50 MG TAB (JANUVIA) PO SCH (09:10)
[2018-12-09] MEDS: MEMANTINE 5MG TABLET (NAMENDA) PO SCH (09:10)
[2018-12-09] MEDS: MAGNESIUM GLUCONATE 500 MG TAB PO SCH (09:10)
[2018-12-09] MEDS: ASPIRIN 81 MG ENTERIC TAB PO SCH (09:11)
[2018-12-09] MEDS: FERROUS SULFATE 325MG TAB PO SCH (09:11)
[2018-12-09] MEDS: URSODIOL 300 MG CAP PO SCH ×2 (09:11→21:25)
[2018-12-09] MEDS: OMEPRAZOLE 20 MG CAP PO SCH (09:11)
[2018-12-09] MEDS: FIDAXOMICIN 200 MG TAB (DIFICID) PO SCH ×2 (09:11→21:25)
[2018-12-09] MEDS: LACTOBACILLUS ACIDOPHILUS CAP (BACID) PO SCH ×3 (09:11→17:18)
[2018-12-09] MEDS: NYSTATIN 100,000 UNITS/GM TOPICAL PWD 15 GM TOP SCH ×2 (09:12→21:25)
[2018-12-09] MEDS: VITAMIN D 1,000 INTERNATIONAL UNITS TABLET PO SCH (09:12)
[2018-12-09] MEDS: SERTRALINE HCL 50 MG TAB PO SCH (09:12)
--- NOTE | 2018-12-09 14:06 | IPNPDOC ---
Text Note Date of Service The patient was seen on 12/09/18. NOTE Pt with no acute complaints. No overnight events reported. Pt Echo completed result appreciated. Requires active physical therapy for mobility. PHYSICAL EXAMINATION: VITAL SIGNS: See below GENERAL APPEARANCE: Pt is elderly female in NAD HEENT: MEI EOMI no icterus neck supple CARDIOVASCULAR: S1 S2 regular rate and rhythm LUNGS: clear bilat no wheezing no rales ABDOMEN: soft, obese, NT, +BS Vital Signs Date Time Temp Pulse Resp B/P (MAP) Pulse Ox O2 Delivery O2 Flow Rate FiO2 12/09/18 12:00 97.4 74 17 127/74 (91) 99 12/09/18 08:00 97.1 57 17 134/62 (86) 98 12/09/18 04:00 98.0 60 18 132/58 (82) 97 12/09/18 00:00 97.4 64 18 140/70 (93) 97 12/08/18 21:30 164/76 (105) 12/08/18 20:00 97.2 71 18 170/72 (104) 99 12/08/18 18:00 98.6 70 18 126/66 (86) 99 Intake & Output 12/09/18 06:00 Intake Total 1780 ml Output Total 950 ml Balance 830 ml Laboratory Tests 12/09/18 05:32: White Blood Count 5.4, Red Blood Count 3.23L, Hemoglobin 9.9L, Hematocrit 30.6L, Mean Corpuscular Volume 94.7, Mean Corpuscular Hemoglobin 30.7, Mean Corpuscular Hemoglobin Concent 32.4, Red Cell Distribution Width 15.7H, Platelet Count 139L, Neutrophils (%) (Auto) 56.6, Lymphocytes (%) (Auto) 28.7, Monocytes (%) (Auto) 7.4H, Eosinophils (%) (Auto) 6.3H, Basophils (%) (Auto) 0.6, Neutrophils # (Auto) 3.0, Lymphocytes # (Auto) 1.5, Monocytes # (Auto) 0.4, Eosinophils # ( Auto) 0.3, Basophils # (Auto) 0.0, Immature Granulocyte % (Auto) 0.4, Nucleated Red Blood Cells % (auto) 0.0, Blood Urea Nitrogen 14, Creatinine 1.16, Sodium Level 144, Potassium Level 3.6, Chloride Level 113H, Carbon Dioxide Level 24, Calcium Level 8.3L, Aspartate Amino Transf (AST/SGOT) 24, Alanine Aminotransferase (ALT/SGPT) 12, Alkaline Phosphatase 98, Total Bilirubin 0.4, Total Protein 5.7L, Albumin 2.1L, Anion Gap 7L, Glomerular Filtration Rate 47.4, Fasting Glucose 94, Albumin/Globulin Ratio 0.58L Microbiology 12/06/18 Gastrointestinal Tract Panel (PCR) - Final, Complete Clostridium Difficile A/B 12/06/18 Stool Lactoferrin - Final, Complete 12/05/18 Urine Culture - Final, Complete Enterococcus Faecalis Current Medications Medications (Trade) Dose Ordered Sig/Neelam Route PRN Reason Start Time Stop Time Status Last Admin Dose Admin Aspirin (Ecotrin) 81 mg DAILY PO 12/06/18 09:00 12/09/18 09:11 81 MG Ferrous Sulfate (Ferrous Sulfate) 325 mg DAILY PO 12/06/18 09:00 12/09/18 09:11 325 MG Fidaxomicin (Dificid) 200 mg BID PO 12/06/18 14:00 12/09/18 09:11 200 MG Hydroxyzine HCl (Atarax) 10 mg Q8HP PRN PO itching 12/07/18 13:00 12/07/18 17:13 10 MG Lactobacillus Acidophilus (Bacid) 1 ea WM PO 12/06/18 12:30 12/09/18 12:15 1 EA Levothyroxine Sodium (Synthroid) 125 mcg DAILY@0600 PO 12/06/18 06:00 12/09/18 05:59 125 MCG Magnesium Gluconate (Magnesium Gluconate) 500 mg DAILY PO 12/06/18 09:00 12/09/18 09:10 500 MG Memantine (Namenda) 10 mg DAILY PO 12/06/18 09:00 12/09/18 09:10 10 MG Nystatin (Mycostatin Powder, Nystop) APPLY TO ABDOMINAL FOLDS BID TOP 12/06/18 21:00 12/09/18 09:12 1 DOSE Omeprazole (PriLOSEC) 40 mg DAILY PO 12/06/18 09:00 12/09/18 09:11 40 MG Risperidone (RisperDAL) 1 mg QHS PO 12/05/18 21:00 12/08/18 20:42 1 MG Sertraline HCl (Zoloft) 50 mg DAILY PO 12/06/18 09:00 12/09/18 09:12 50 MG Sitagliptin Phosphate (Januvia) 100 mg DAILY PO 12/06/18 09:00 12/09/18 09:10 100 MG Sodium Chloride (Saline Lock Flush) 2 ml SLF IV 12/08/18 22:00 12/09/18 06:00 2 ML Ursodiol (Actigall) 600 mg BID PO 12/05/18 21:00 12/09/18 09:11 600 MG Vitamin D (Vitamin D) 2,000 units DAILY PO 12/06/18 09:00 12/09/18 09:12 2,000 UNITS COMMENTS: Sinus bradycardia without intraventricular conduction disturbance. Technically challenging study in light of the patient's body habitus but diagnostically useful information was still obtained. M-mode and two-dimensional echocardiography was performed with pulsed, continuous wave, color flow and tissue Doppler studies. Mild concentric left ventricle hypertrophy with hyperkinetic wall motion. Mildly dilated left atrium with impairment of LV diastolic function and elevated estimated mean left atrial pressure. Normal right heart chamber sizes and motion and estimated pulmonary arterial pressure. Her inferior vena cava could not be well visualized to estimate central venous pressure. Aortic valvular sclerosis without stenosis but mild insufficiency. Normal aortic root size. Mild degenerative changes of the mitral valvular apparatus without inflow tract obstruction and only mild insufficiency. Normal appearing tricuspid valve with only trace to mild insufficiency. No apparent intracardiac mass or pericardial effusion. The above test findings did not appear to be significantly changed from those A/P 1-Cdiff Colitis PCR positive 12/06 Cont Fidaxomicin ,IVF monitor electrolytes 2-Syncope no episodes in hospital Tele unremarkable Echo result appreciated 3-Requires active PT/OT 4-Hx lacunar infarct 5-recent ascending cholangitis 6-recent choledocholithiasis 7-CAD 8-NIDDM 9-hypothyroidism 10-Alzheimer's dementia #DVT prophylaxis - mechanical Dispo: possible acute rehabilitation as per PT/OT, CM/SW VS,Chyna, I+O VS, Chyna, I+O Laboratory Tests 12/09/18 05:32 Red Blood Count 3.23 L, Mean Corpuscular Volume 94.7, Mean Corpuscular Hemoglobin 30.7, Mean Corpuscular Hemoglobin Concent 32.4, Red Cell Distribution Width 15.7 H, Neutrophils (%) (Auto) 56.6, Lymphocytes (%) (Auto) 28.7, Monocytes (%) (Auto) 7.4 H, Eosinophils (%) (Auto) 6.3 H, Basophils (%) (Auto) 0.6, Neutrophils # (Auto) 3.0, Lymphocytes # (Auto) 1.5, Monocytes # (Auto) 0.4, Eosinophils # (Auto) 0.3, Basophils # (Auto) 0.0, Calcium Level 8.3 L, Aspartate Amino Transf (AST/SGOT) 24, Alanine Aminotransferase (ALT/SGPT) 12, Alkaline Phosphatase 98, Total Bilirubin 0.4, Total Protein 5.7 L, Albumin 2.1 L Vital Signs Date Time Temp Pulse Resp B/P (MAP) Pulse Ox O2 Delivery O2 Flow Rate FiO2 12/09/18 12:00 97.4 74 17 127/74 (91) 99 12/05/18 11:55 Room Air I&O- Last 24 Hours up to 6 AM 12/09/18 06:00 Intake Total 1780 ml Output Total 950 ml Balance 830 ml JASMIN GRAF MD Dec 09, 2018 14:06
[2018-12-09] MEDS: risperiDONE 1 MG TAB PO SCH (21:25)
[2018-12-10 04:00] VITALS: BP 146/74
[2018-12-10] MEDS: LEVOTHYROXINE 125MCG TABLET (0.125MG) PO SCH (05:33)
[2018-12-10] MEDS: SLF 3 ML SYR IV SCH (05:33)
[2018-12-10 06:05] LABS: BASO # 0.1 10^3/uL (0.0-0.2); EOS # 0.3 10^3/uL (0.0-0.50); EOS % 5.7 % (0.0-3.0); HEMATOCRIT 34.3 % (36.0-47.0); HEMOGLOBIN 10.6 g/dl (12.0-15.5); LYMPH # 1.8 10^3/uL (1.5-4.5); LYMPH % 29.7 % (24.0-44.0); MEAN CORPUSCULAR HEMOGLOBIN 30.3 pg (27.0-33.0); MEAN CORPUSCULAR HGB CONC 30.9 g/dl (32.0-36.5); MONO # 0.4 10^3/uL (0.0-0.8); MONO % 7.4 % (0.0-5.0); NEUTROPHILS # 3.3 10^3/uL (1.8-7.7); PLATELET COUNT, AUTOMATED 140 10^3/uL (150-450); WHITE BLOOD COUNT 5.9 10^3/uL (4.0-10.0)
[2018-12-10 06:18] LABS: ALBUMIN 1.9 GM/DL (3.2-5.2); BILIRUBIN,TOTAL 0.4 MG/DL (0.2-1.0); CALCIUM LEVEL 8.4 MG/DL (8.8-10.2); CREATININE FOR GFR 1.13 MG/DL (0.55-1.30); GLOMERULAR FILTRATION RATE 48.8 (>32); POTASSIUM SERUM 3.8 MEQ/L (3.5-5.1); TOTAL PROTEIN 5.9 GM/DL (6.4-8.2)
[2018-12-10 07:19] VITALS: BP 148/68
[2018-12-10] MEDS: FIDAXOMICIN 200 MG TAB (DIFICID) PO SCH (09:39)
[2018-12-10] MEDS: URSODIOL 300 MG CAP PO SCH (09:39)
[2018-12-10] MEDS: MEMANTINE 5MG TABLET (NAMENDA) PO SCH (09:39)
[2018-12-10] MEDS: OMEPRAZOLE 20 MG CAP PO SCH (09:40)
[2018-12-10] MEDS: ASPIRIN 81 MG ENTERIC TAB PO SCH (09:40)
[2018-12-10] MEDS: SITagliptin 50 MG TAB (JANUVIA) PO SCH (09:40)
[2018-12-10] MEDS: FERROUS SULFATE 325MG TAB PO SCH (09:40)
[2018-12-10] MEDS: VITAMIN D 1,000 INTERNATIONAL UNITS TABLET PO SCH (09:40)
[2018-12-10] MEDS: LACTOBACILLUS ACIDOPHILUS CAP (BACID) PO SCH ×2 (09:40→12:23)
[2018-12-10] MEDS: MAGNESIUM GLUCONATE 500 MG TAB PO SCH (09:40)
[2018-12-10] MEDS: NYSTATIN 100,000 UNITS/GM TOPICAL PWD 15 GM TOP SCH (09:41)
[2018-12-10] MEDS: SERTRALINE HCL 50 MG TAB PO SCH (09:41)
--- NOTE | 2018-12-10 11:02 | IPNPDOC ---
Text Note Date of Service The patient was seen on 12/10/18. NOTE Denies any chest pain, dizziness or SOB. Echo completed result appreciated. Requires active physical and ocupational therapy for mobility. PHE VITAL SIGNS: See below GENERAL: Pt is elderly female in NAD HEENT: MEI EOMI no icterus neck supple CARDIOVASCULAR: S1 S2 regular rate and rhythm LUNGS: clear bilat no wheezing no rales ABDOMEN: soft, obese, NT, +BS Psych: mood affect appropriate Vital Signs Date Time Temp Pulse Resp B/P (MAP) Pulse Ox O2 Delivery O2 Flow Rate FiO2 12/09/18 12:00 97.4 74 17 127/74 (91) 99 12/09/18 08:00 97.1 57 17 134/62 (86) 98 12/09/18 04:00 98.0 60 18 132/58 (82) 97 12/09/18 00:00 97.4 64 18 140/70 (93) 97 12/08/18 21:30 164/76 (105) 12/08/18 20:00 97.2 71 18 170/72 (104) 99 12/08/18 18:00 98.6 70 18 126/66 (86) 99 Intake & Output 12/09/18 06:00 Intake Total 1780 ml Output Total 950 ml Balance 830 ml Laboratory Tests 12/09/18 05:32: White Blood Count 5.4, Red Blood Count 3.23L, Hemoglobin 9.9L, Hematocrit 30.6L, Mean Corpuscular Volume 94.7, Mean Corpuscular Hemoglobin 30.7, Mean Corpuscular Hemoglobin Concent 32.4, Red Cell Distribution Width 15.7H, Platelet Count 139L, Neutrophils (%) (Auto) 56.6, Lymphocytes (%) (Auto) 28.7, Monocytes (%) (Auto) 7.4H, Eosinophils (%) (Auto) 6.3H, Basophils (%) (Auto) 0.6, Neutrophils # (Auto) 3.0, Lymphocytes # (Auto) 1.5, Monocytes # (Auto) 0.4, Eosinophils # (Aut o) 0.3, Basophils # (Auto) 0.0, Immature Granulocyte % (Auto) 0.4, Nucleated Red Blood Cells % (auto) 0.0, Blood Urea Nitrogen 14, Creatinine 1.16, Sodium Level 144, Potassium Level 3.6, Chloride Level 113H, Carbon Dioxide Level 24, Calcium Level 8.3L, Aspartate Amino Transf (AST/SGOT) 24, Alanine Aminotransferase (ALT/SGPT) 12, Alkaline Phosphatase 98, Total Bilirubin 0.4, Total Protein 5.7L, Albumin 2.1L, Anion Gap 7L, Glomerular Filtration Rate 47.4, Fasting Glucose 94, Albumin/Globulin Ratio 0.58L Microbiology 12/06/18 Gastrointestinal Tract Panel (PCR) - Final, Complete Clostridium Difficile A/B 12/06/18 Stool Lactoferrin - Final, Complete 12/05/18 Urine Culture - Final, Complete Enterococcus Faecalis Current Medications Medications (Trade) Dose Ordered Sig/Neelam Route PRN Reason Start Time Stop Time Status Last Admin Dose Admin Aspirin (Ecotrin) 81 mg DAILY PO 12/06/18 09:00 12/09/18 09:11 81 MG Ferrous Sulfate (Ferrous Sulfate) 325 mg DAILY PO 12/06/18 09:00 12/09/18 09:11 325 MG Fidaxomicin (Dificid) 200 mg BID PO 12/06/18 14:00 12/09/18 09:11 200 MG Hydroxyzine HCl (Atarax) 10 mg Q8HP PRN PO itching 12/07/18 13:00 12/07/18 17:13 10 MG Lactobacillus Acidophilus (Bacid) 1 ea WM PO 12/06/18 12:30 12/09/18 12:15 1 EA Levothyroxine Sodium (Synthroid) 125 mcg DAILY@0600 PO 12/06/18 06:00 12/09/18 05:59 125 MCG Magnesium Gluconate (Magnesium Gluconate) 500 mg DAILY PO 12/06/18 09:00 12/09/18 09:10 500 MG Memantine (Namenda) 10 mg DAILY PO 12/06/18 09:00 12/09/18 09:10 10 MG Nystatin (Mycostatin Powder, Nystop) APPLY TO ABDOMINAL FOLDS BID TOP 12/06/18 21:00 12/09/18 09:12 1 DOSE Omeprazole (PriLOSEC) 40 mg DAILY PO 12/06/18 09:00 12/09/18 09:11 40 MG Risperidone (RisperDAL) 1 mg QHS PO 12/05/18 21:00 12/08/18 20:42 1 MG Sertraline HCl (Zoloft) 50 mg DAILY PO 12/06/18 09:00 12/09/18 09:12 50 MG Sitagliptin Phosphate (Januvia) 100 mg DAILY PO 12/06/18 09:00 12/09/18 09:10 100 MG Sodium Chloride (Saline Lock Flush) 2 ml SLF IV 12/08/18 22:00 12/09/18 06:00 2 ML Ursodiol (Actigall) 600 mg BID PO 12/05/18 21:00 12/09/18 09:11 600 MG Vitamin D (Vitamin D) 2,000 units DAILY PO 12/06/18 09:00 12/09/18 09:12 2,000 UNITS COMMENTS: Sinus bradycardia without intraventricular conduction disturbance. Technically challenging study in light of the patient's body habitus but diagnostically useful information was still obtained. M-mode and two-dimensional echocardiography was performed with pulsed, continuous wave, color flow and tissue Doppler studies. Mild concentric left ventricle hypertrophy with hyperkinetic wall motion. Mildly dilated left atrium with impairment of LV diastolic function and elevated estimated mean left atrial pressure. Normal right heart chamber sizes and motion and estimated pulmonary arterial pressure. Her inferior vena cava could not be well visualized to estimate central venous pressure. Aortic valvular sclerosis without stenosis but mild insufficiency. Normal aortic root size. Mild degenerative changes of the mitral valvular apparatus without inflow tract obstruction and only mild insufficiency. Normal appearing tricuspid valve with only trace to mild insufficiency. No apparent intracardiac mass or pericardial effusion. The above test findings did not appear to be significantly changed from those A/P 1-Cdiff Colitis PCR positive 12/06 Cont Fidaxomicin ,IVF monitor electrolytes 2-Syncope no episodes in hospital Tele unremarkable Echo result appreciated 3-Requires active PT/OT for physical optimization/mobility for deconditioning 4-Hx lacunar infarct 5-recent Hx of ascending cholangitis 6-recent Hx of choledocholithiasis 7-CAD 8-NIDDM 9-hypothyroidism 10-Alzheimer's dementia DVT prophylaxis - mechanical Dispo: possible acute rehabilitation as per PT/OT, CM/SW VS,Fishbone, I+O VS, Fishbone, I+O Laboratory Tests 12/10/18 05:20 Red Blood Count 3.50 L, Mean Corpuscular Volume 98.0 H, Mean Corpuscular Hemoglobin 30.3, Mean Corpuscular Hemoglobin Concent 30.9 L, Red Cell Distribution Width 16.5 H, Neutrophils (%) (Auto) 56.0, Lymphocytes (%) (Auto) 29.7, Monocytes (%) (Auto) 7.4 H, Eosinophils (%) (Auto) 5.7 H, Basophils (%) (Auto) 1.0, Neutrophils # (Auto) 3.3, Lymphocytes # (Auto) 1.8, Monocytes # (Auto) 0.4, Eosinophils # (Auto) 0.3, Basophils # (Auto) 0.1, Calcium Level 8.4 L, Aspartate Amino Transf (AST/SGOT) 25, Alanine Aminotransferase (ALT/SGPT) 14, Alkaline Phosphatase 117, Total Bilirubin 0.4, Total Protein 5.9 L, Albumin 1.9 L Vital Signs Date Time Temp Pulse Resp B/P (MAP) Pulse Ox O2 Delivery O2 Flow Rate FiO2 12/10/18 07:19 97.0 76 20 148/68 (94) 98 12/05/18 11:55 Room Air I&O- Last 24 Hours up to 6 AM 12/10/18 06:00 Intake Total 300 ml Output Total 600 ml Balance -300 ml JASMIN GRAF MD Dec 10, 2018 11:02
[2018-12-10 12:00] VITALS: BP 118/62
[2018-12-10] MEDS ORDERED: DIAPER RELIEF PASTE (DESITIN) 60GM TOP SCH (16:00)
--- NOTE | 2018-12-12 09:15 | DS.PDOC ---
Discharge Summary General Date of Admission Dec 05, 2018 at 15:38 Date of Discharge December 10, 2018 Attending Physician: JASMIN GRAF MD Discharge Summary PROCEDURES PERFORMED DURING STAY: None ADMITTING DIAGNOSES: 1-Toxic metabolic encephalopathy as per EEG report 2-syncope 3-c.diff colitis # Hx lacunar infarct # recent ascending cholangitis # recent choledocholithiasis # CAD # NIDDM # hypothyroidism # Alzheimer's dementia DISCHARGE DIAGNOSES: same COMPLICATIONS/CHIEF COMPLAINT: Syncope. HISTORY OF PRESENT ILLNESS: As per initial H&P: 83 yo female presents for syncopal episode occurred around 10:30AM while patient was using toilet. History is provided by son, patient is poor historian secondary to dementia. Son states that she has had poor appetite for the past s everal days, and diarrhea for two days. Denies any head trauma. Patient denies any pre-syncopal symptoms, but does not remember passing out. Her son states there was no seizure like activity, or incontinence. A similar episode occurred about two weeks ago, without actual LOC. Her son is not clear but states she has a history of seizure or stroke. HOSPITAL COURSE: 1-C diff Colitis, PCR positive, responded to IV fluids and Fidaxomicin, Improved over the course of hospital stay 2-Syncope, On tele, No event on tele, Echo done, no episodes while in hospital, most likely vaso vagal or dehydration, EEG consistent with encephalopathy 3. History of CAD, remained on Meds History of NIDDM, On Insulin DISCHARGE MEDICATIONS: Please see below. ALLERGIES: Please see below. PHYSICAL EXAMINATION ON DISCHARGE: VITAL SIGNS: Please see below. GENERAL: Pt is elderly female NAD HEENT: MEI EOMI no icterus neck supple CARDIOVASCULAR: S1 S2 regular rate and rhythm LUNGS: clear bilat no wheezing no rales ABDOMEN: soft, obese, NT, +BS Psych: mood affect appropriate LABORATORY DATA: Please see below. IMAGING: * Head CT 12/05/18 IMPRESSION: Moderate diffuse atrophy. Vascular calcification. Small vessel changes are again noted. A small old lacunar infarct is seen in the head of the caudate nucleus on the right unchanged. No acute intracranial abnormality. * PORTABLE CHEST: 12/05/18 AP portable view of the chest is performed and compared to a prior study of11/19/2018. The patient is rotated toward the left. There is mild fibroatelectasis in the left costophrenic angle. Otherwise there is no acute infiltrate. Heart and mediastinum are grossly unchanged. ECHO DATE OF PROCEDURE: 12/07/2018 AGE: 83 GENDER: Female HEIGHT: 66 inches WEIGHT: 213 pounds BODY SURFACE AREA: 2.05 m2 INPATIENT: PCU Room 3212 REFERRING PHYSICIAN: Dr. Sharad Aceves INDICATION: Syncope. MEASUREMENTS: 2-D Measurements: RV: 2.9 cm LV: 4.6 cm Septum: 1.3 cm Posterior wall: 1.3 cm Aortic root: 3.5 cm LA: 4.5 cm LVEF: 70% Doppler Measurements: AV: 1.53 m/s LVOT: 0.96 m/s LVOT diameter: 2.1 cm MV - E: 106, A: 95, EA ratio: 1.6 Early mitral deceleration time: 220 ms E prime: 6.7, A prime: 9, E/E prime ratio: 15.8 PCWP: 19.9 mmHg PV: 0.8 m/s Pulmonary artery acceleration time: 140 ms RVSP: 27 mmHg IVC: Not well visualized. COMMENTS: Sinus bradycardia without intraventricular conduction disturbance. Technically challenging study in light of the patient's body habitus but diagnostically useful information was still obtained. M-mode and two-dimensional echocardiography was performed with pulsed, continuous wave, color flow and tissue Doppler studies. Mild concentric left ventricle hypertrophy with hyperkinetic wall motion. Mildly dilated left atrium with impairment of LV diastolic function and elevated estimated mean left atrial pressure. Normal right heart chamber sizes and motion and estimated pulmonary arterial pressure. Her inferior vena cava could not be well visualized to estimate central venous pressure. Aortic valvular sclerosis without stenosis but mild insufficiency. Normal aortic root size. Mild degenerative changes of the mitral valvular apparatus without inflow tract obstruction and only mild insufficiency. Normal appearing tricuspid valve with only trace to mild insufficiency. No apparent intracardiac mass or pericardial effusion. The above test findings did not appear to be significantly changed from those described 03/09/2018. DD: Antonio Juarez MD, [facility] 12/08/18 1823 PROGNOSIS: Fair ACTIVITY: [As tolerated]. DISPOSITION: 06 Home Health Service. ITEMS TO FOLLOWUP ON ON OUTPATIENT: 1. pcp in one week DISCHARGE CONDITION: [Stable]. TIME SPENT ON DISCHARGE: 35 minutes. Vital Signs/I&Os Vital Signs Date Time Temp Pulse Resp B/P (MAP) Pulse Ox O2 Delivery O2 Flow Rate FiO2 7/16/19 12:00 98.1 73 18 118/62 (80) 98 12/05/18 11:55 Room Air I&O- Last 24 Hours up to 6 AM 12/11/18 06:00 Intake Total 360 ml Output Total 0 ml Balance 360 ml Microbiology Microbiology 12/05/18 Blood Culture - Final, Complete NO GROWTH AFTER 5 DAYS 12/05/18 Blood Culture - Final, Complete NO GROWTH AFTER 5 DAYS 12/06/18 Gastrointestinal Tract Panel (PCR) - Final, Complete Clostridium Difficile A/B 12/06/18 Stool Lactoferrin - Final, Complete 12/05/18 Urine Culture - Final, Complete Enterococcus Faecalis Discharge Medications Scheduled Aspirin (Aspirin EC) 81 Mg Tablet.dr, 81 MG PO DAILY, (Reported) Cholecalciferol (Vitamin D3) (Vitamin D3) 2,000 Unit Tab, 2,000 UNIT PO DAILY, (Reported) Cyanocobalamin (Vitamin B-12) (Vitamin B-12) 500 Mcg Tablet, 1,000 MCG PO DAILY, (Reported) Ferrous Sulfate (Ferrous Sulfate) 325 Mg Tablet.dr, 325 MG PO DAILY, (Reported) Levothyroxine Sodium (Synthroid) 125 Mcg Tablet, 125 MCG PO DAILY, (Reported) Magnesium Gluconate (Magnesium Gluconate) 500 Mg Tab, 500 MG PO DAILY, (Reported) Memantine HCl (Namenda) 10 Mg Tab, 10 MG PO DAILY, (Reported) Omeprazole (Omeprazole) 20 Mg Cap, 40 MG PO DAILY, (Reported) Risperidone (Risperidone) 1 Mg Tablet, 1 MG PO QHS, (Reported) Sertraline Hcl (Sertraline HCl) 50 Mg Tab, 50 MG PO DAILY, (Reported) Sitagliptin Phosphate (Januvia) 100 Mg Tab, 100 MG PO DAILY, (Reported) Ursodiol (Ursodiol) 300 Mg Capsule, 600 MG PO BID, (Reported) Scheduled PRN Ondansetron HCl (Ondansetron HCl) 4 Mg Tablet, 4 MG PO Q6H PRN for NAUSEA, (Reported) Allergies Coded Allergies: YURI Inhibitors (Verified Adverse Reaction, Intermediate, cough, 12/05/18) JASMIN GRAF MD Dec 11, 2018 19:12
== END 2018-12-10 16:38 | disposition home health service (06) | DRG 373 ==
LOC: M ED 11:41 → EDBD 11:41 → M ED INP 15:38 → M PCU 18:19
PROVIDERS: ADMIT Internal Medicine; ATTEND Hospitalist
DX: A04.72 Enterocolitis due to Clostridium difficile, not specified as recurrent (principal); I25.10 Atherosclerotic heart disease of native coronary artery without angina pectoris; E03.9 Hypothyroidism, unspecified; G30.9 Alzheimer's disease, unspecified; R63.0 Anorexia; R55 Syncope and collapse; F02.80 Dementia in other diseases classified elsewhere, unspecified severity, without behavioral disturbance, psychotic disturbance, mood disturbance, and anxiety; Z79.82 Long term (current) use of aspirin; Z79.899 Other long term (current) drug therapy; Z88.8 Allergy status to other drugs, medicaments and biological substances; Z86.73 Personal history of transient ischemic attack (TIA), and cerebral infarction without residual deficits